=== PATIENT | female | born 1945 | race Caucasian/White ===

== ENCOUNTER 2018-07-18 09:15 | Inpatient (IN) | payer MEDICARE, BC ==
[~2018-07-18 09:15] MED LIST: Acetaminophen 325 MG Tab PO SCH; EPINEPHrine 1 MG/ML SDV ONE; Lactated Ringers 1,000 ML IV SCH; Lidocaine 1%/Sod Bicarbonate in NS 8.4% 1 ML Syringe IDERM PRN; Pregabalin 25 MG Cap PO SCH; Ropivacaine 0.5% 5 MG/ML 30 ML SDV ONE; Sodium Chloride 0.9% 10 ML Syringe FLUSH PRN; oxyCODONE ER 10 MG TAB.ER PO SCH
[2018-07-18] MEDS ORDERED: fentaNYL 100 MCG/2 ML SDV ONE (09:36)
[2018-07-18] MEDS ORDERED: Propofol 200 MG/20 ML SDV ONE ×5 (09:36→13:16)
[2018-07-18] MEDS ORDERED: Bupivacaine 0.75% 30 ML SDV ONE (09:37)
[2018-07-18] MEDS ORDERED: Lidocaine 1% 4 ML ONE (09:37)
[2018-07-18] MEDS ORDERED: ceFAZolin 1 GM Vial ONE (09:52)
--- NOTE | 2018-07-18 10:16 | PCM.PREANE ---
Preanesthetic Assessment - Anesthesia/Transfusion/Family Hx Anesthesia History: Prior Anesthesia Without Reaction Family History of Anesthesia Reaction: No Transfusion History: No Prior Transfusion(s) - Review of Systems General: No Symptoms Pulmonary: No Symptoms Cardiovascular: No Symptoms Gastrointestinal: No Symptoms Neurological: No Symptoms Other: Reports: None - Physical Assessment NPO Status Date: 07/17/18 NPO Status Time: 00:00 Pulse: 63 O2 Sat by Pulse Oximetry: 98 Respiratory Rate: 16 Blood Pressure: 171/73 Temperature: 37.1 C Height: 1.7 m Weight: 59.466 kg ASA Class: 2 Mental Status: Alert & Oriented x3 Dentition: Reports: Normal Dentition Thyro-Mental Finger Breadths: 3 Mouth Opening Finger Breadths: 3 ROM/Head Extension: Full Lungs: Clear to Auscultation, Normal Respiratory Effort Cardiovascular: Regular Rate, Regular Rhythm, No Murmurs - Lab Values: on chart - Imaging/EKG Impressions: EKG SR @ 66 - Allergies Allergies/Adverse Reactions: Allergies Allergy/AdvReac Type Severity Reaction Status Date / Time No Known Allergies Allergy Verified 05/09/17 08:05 - Anesthesia Plan Pre-Op Medication Ordered: Beta Sandie Beta Sandie: Metoprolol Med Last Dose Date: 07/18/18 Med Last Dose Time: 07:00 - Acknowledgements Anesthesia Type Planned: Spinal Pt an Appropriate Candidate for the Planned Anesthesia: Yes Alternatives and Risks of Anesthesia Discussed w Pt/Guardian: Yes Pt/Guardian Understands and Agrees with Anesthesia Plan: Yes PreAnesthesia Questionnaire Genitourinary History: Reports: Other (See Below) (chronic renal disease) - HOME MEDS Home Medications: Home Meds Acetaminophen/HYDROcodone [[place] 325-5 MG] 1 - 2 tab PO Q6H PRN #15 tablet 06/06 [Rx] Aspirin [Adult Low Dose Aspirin EC] 81 mg PO DAILY 06/06/18 [History] DULoxetine HCl [Cymbalta] 60 mg PO BID 06/06/18 [History] Lisinopril 40 mg PO DAILY 06/06/18 [History] Metoprolol Succinate 50 mg PO DAILY 06/06/18 [History] Simvastatin 20 mg PO DAILY 06/06/18 [History] amLODIPine Besylate [Amlodipine Besylate] 10 mg PO DAILY 06/06/18 [History] - CURRENT (IN HOUSE) MEDS Current Meds: Current Medications Acetaminophen (Tylenol) 975 mg PO ONETIME [facility] Stop: 07/18/18 12:00 Aspirin (Ecotrin) 325 mg PO BID [facility] Bisacodyl (Dulcolax) 5 mg PO DAILY PRN PRN Reason: Constipation Cyclobenzaprine HCl (Flexeril) 10 mg PO TID PRN PRN Reason: Spasms Docusate Sodium (Colace) 100 mg PO BID [facility] Famotidine (Pepcid) 20 mg PO Q12H [facility] Lactated Ringer's (Ringers, Lactated) 1,000 mls @ 125 mls/hr IV ASDIRECTED [facility] Stop: 07/18/18 23:00 Cefazolin Sodium/Dextrose 2 gm (/ Premix) 50 mls @ 100 mls/hr IV Q8H [facility] Stop: 07/18/18 23:29 Lidocaine/Sodium Bicarbonate (Buffered Lidocaine 1% In Ns 8.4%) 0.25 ml IDERM ONETIME PRN PRN Reason: Prior to IV Start Stop: 07/18/18 18:00 Magnesium Hydroxide (Milk Of Magnesia) 30 ml PO BID PRN PRN Reason: Constipation Morphine Sulfate (Morphine) 2 mg IVPUSH Q2H PRN PRN Reason: Breakthrough Pain Naloxone HCl (Narcan) 0.1 mg IVPUSH Q5M PRN PRN Reason: Oversedation Ondansetron HCl (Zofran) 4 mg IVPUSH Q6H PRN PRN Reason: Nausea/Vomiting Oxycodone HCl (Oxycontin) 10 mg PO ASDIRECTED [facility] Stop: 07/18/18 12:00 Oxycodone/Acetaminophen (Percocet 325-5 Mg) 1 - 2 tab PO Q4H PRN PRN Reason: Pain Pregabalin (Lyrica) 50 mg PO ONETIME [facility] Stop: 07/18/18 18:00 Senna (Senna) 8.6 mg PO BID PRN PRN Reason: Constipation Sodium Chloride (Saline Flush) 10 ml FLUSH ASDIRECTED PRN PRN Reason: Keep Vein Open Stop: 07/18/18 18:00 Discontinued Medications Bupivacaine HCl (Sensorcaine-Mpf 0.75%) Confirm Administered Dose 30 ml .ROUTE .STK-MED ONE Stop: 07/18/18 09:38 Bupivacaine HCl (Marcaine 0.25%) Confirm Administered Dose 30 ml .ROUTE .STK- MED ONE Stop: 07/18/18 09:53 Cefazolin Sodium (Ancef) Confirm Administered Dose 2 gm .ROUTE .STK-MED ONE Stop: 07/18/18 09:48 Cefazolin Sodium (Ancef) Confirm Administered Dose 2 gm .ROUTE .STK-MED ONE Stop: 07/18/18 09:53 Morphine Sulfate 8 mg/Epinephrine HCl 0.3 mg/Cefuroxime Sodium 750 mg/Ketorolac Tromethamine 30 mg/Sodium Chloride 27.9 ml 0 mg .XX ONETIME ONE Stop: 07/18/18 09:31 Epinephrine HCl (Adrenalin) Confirm Administered Dose 1 mg .ROUTE .STK-MED ONE Stop: 07/18/18 08:48 Fentanyl (Sublimaze) Confirm Administered Dose 100 mcg .ROUTE .ST-MED ONE Stop: 07/18/18 09:37 Lidocaine HCl (Xylocaine-Mpf 1%) Confirm Administered Dose 4 mls @ as directed .ROUTE .ST-MED ONE Stop: 07/18/18 09:38 Lidocaine HCl (Xylocaine-Mpf 1%) Confirm Administered Dose 5 mls @ as directed .ROUTE .ST-MED ONE Stop: 07/18/18 09:38 Iodine (Iodine 2% Mild Tincture) Confirm Administered Dose 30 ml .ROUTE .ST- MED ONE Stop: 07/18/18 09:53 Propofol (Diprivan 20 Ml) Confirm Administered Dose 200 mg .ROUTE .STK-MED ONE Stop: 07/18/18 09:37 Ropivacaine (Naropin 0.5%) Confirm Administered Dose 30 ml .ROUTE .ST-MED ONE Stop: 07/18/18 08:48 Tranexamic Acid (Cyklokapron) Confirm Administered Dose 1,000 mg .ROUTE .STK- MED ONE Stop: 07/18/18 09:53 Vancomycin HCl (Vancomycin) Confirm Administered Dose 1 gm .ROUTE .STK-MED ONE Stop: 07/18/18 09:53
[2018-07-18] MEDS: Iodine/Sodium Iodide 2% Tincture 30 ML Bottle ONE ×2 (11:51→13:05)
[2018-07-18] MEDS: ceFAZolin 1 GM Vial ONE ×2 (11:51→13:08)
[2018-07-18] MEDS: Bupivacaine 0.25% 30 ML SDV ONE ×2 (11:52→13:12)
[2018-07-18] MEDS: Morphine 8 MG, EPINEPHrine 0.3 MG, Cefuroxime 750 MG, Ketorolac 30 MG, Sodium Chloride ... ONE ×10 (11:52→13:12)
[2018-07-18] MEDS: Vancomycin 1 GM SDV ONE ×2 (11:52→13:17)
[2018-07-18] MEDS ORDERED: Ondansetron 4 MG/2 ML SDV IVPUSH PRN (13:00)
[2018-07-18] MEDS ORDERED: Naloxone 0.4 MG/ML SDV IVPUSH PRN (13:00)
[2018-07-18] MEDS ORDERED: Cyclobenzaprine 10 MG Tab PO PRN (13:00)
[2018-07-18] MEDS ORDERED: Bisacodyl 5 MG Tab PO PRN (13:00)
[2018-07-18] MEDS ORDERED: Morphine 2 MG/ML Syringe IVPUSH PRN (13:00)
[2018-07-18] MEDS ORDERED: Sennosides 8.6 MG Tab PO PRN (13:00)
[2018-07-18] MEDS ORDERED: Magnesium Hydroxide 400 MG/5 ML Susp 30 ML Cup PO PRN (13:00)
[2018-07-18] MEDS ORDERED: fentaNYL 100 MCG/2 ML SDV IVPUSH PRN (13:52)
--- NOTE | 2018-07-18 13:55 | PCM.POSTAN ---
POST ANESTHESIA ASSESSMENT - MENTAL STATUS Mental Status: Alert, Oriented - VITAL SIGNS Pulse Rate: 89 SaO2: 96 Resp Rate: 15 Blood Pressure: 130/65 Temperature: 37.4 C - RESPIRATORY Respiratory Status: Respiratory Rate WNL, Airway Patent, O2 Saturation Stable, Supplemental Oxygen - CARDIOVASCULAR CV Status: Pulse Rate WNL, Blood Pressure Stable - GASTROINTESTINAL GI Status: No Symptoms - PAIN Pain Score: 0 - POST OP HYDRATION Hydration Status: Adequate & Stable - OBSERVATIONS Free Text/Narrative:: no anesthesia complications noted
--- NOTE | 2018-07-18 14:14 | PCM.SN ---
- Free Text/Narrative Note: Left selective femoral nerve block at the adductor canal for post-procedure pain control Time Out: 1358 Start: 1403 End: 1407 Chart reviewed. Consent signed. Questions answered. Appropriate monitors applied. Time out performed. Left mid-shaft femur evaluated with ultrasound. Scanning medially femur, I was able to identify the femoral artery in the adductor canal. The saphenous nerve was lateral to the artery. The skin was prepped lateral to the ultrasound probe with chlorahexadine. The 21ga 4 insulated block needle was inserted under direct ultrasound guidance into the adductor canal. 20mL of 0.5% ropivacaine with 1:200,000 epinephrine was injected cirmcumferentially about the nerve with intermittent negative aspiration every 5mL. Patient tolerated the procedure well. See pictures on progress note and vital signs on nurses notes. Block completed postoperatively. Bonifacio Handy CRNA
--- NOTE | 2018-07-18 14:20 | PCM.CONS ---
H&P History of Present Illness - General Date of Service: 07/18/18 Admit Problem/Dx: Admission Diagnosis/Problem Admission Diagnosis/Problem Osteoarthritis of knee Source of Information: Patient, Provider History Limitations: Reports: No Limitations - History of Present Illness Initial Comments - Free Text/Narative: Laura is a 72 yo female patient of Dr. Rangel who is post-operative day 0 of left TKA. Hospital medicine was consulted for post-operative medical care. At this time she is resting comfortably in bed. Pain is controlled. She denies any chest pain, shortness of breath, palpitations, nausea, or vomiting. She carries a history of: LIZANDRO, CKD III, Depression, Anxiety, Fibromyalgia, GERD, HTN, HLD, h /o ETOH abuse, h/o Bipolar. She is not a smoker. She is a full code. Her primary care provider is Lara Velasco NP. - Related Data Allergies/Adverse Reactions: Allergies Allergy/AdvReac Type Severity Reaction Status Date / Time No Known Allergies Allergy Verified 07/18/18 11:54 Home Medications: Home Meds Acetaminophen/HYDROcodone [[place] 325-5 MG] 1 - 2 tab PO Q6H PRN #15 tablet 06/06 [Rx] Aspirin [Adult Low Dose Aspirin EC] 81 mg PO DAILY 06/06/18 [History] DULoxetine HCl [Cymbalta] 60 mg PO BID 06/06/18 [History] Lisinopril 40 mg PO DAILY 06/06/18 [History] Metoprolol Succinate 50 mg PO DAILY 06/06/18 [History] Simvastatin 20 mg PO QPM 06/06/18 [History] amLODIPine Besylate [Amlodipine Besylate] 10 mg PO DAILY 06/06/18 [History] FA/Lycopene/Lut/MV,Ca,Iron,Min [Centrum] 1 tab PO DAILY 07/18/18 [History] Prazosin HCl [Prazosin] 2 mg PO BID 07/18/18 [History] Vortioxetine Hydrobromide [Trintellix] 20 mg PO DAILY 07/18/18 [History] Past Medical History HEENT History: Reports: Allergic Rhinitis, Cataract Cardiovascular History: Reports: High Cholesterol, Hypertension Respiratory History: Reports: Other (See Below) Other Respiratory History: seasonal allergies Genitourinary History: Reports: Other (See Below) (chronic renal disease) Other Genitourinary History: chronic kidney disease stage 3. Other OB/BYN History: breast lulmpeactomy and reduction Musculoskeletal History: Reports: Arthritis, Fibromyalgia Other Musculoskeletal History: hammertoe correction, partial left knee, left shoulder.bilat carpal tunnel Psychiatric History: Reports: Anxiety, Depression, Other (See Below) Other Psychiatric History: daytime somnolence, alcohol abuse, bipolar. Other Hematologic History: hypokalemia - Past Surgical History GI Surgical History: Reports: Appendectomy, Cholecystectomy Female Surgical History: Reports: Hysterectomy, Tubal Ligation, Other (See Below) Musculoskeletal Surgical History: Reports: Carpal Tunnel Social & Family History - Tobacco Use Smoking Status *Q: Never Smoker - Caffeine Use Caffeine Use: Reports: Coffee - Recreational Drug Use Recreational Drug Use: No Drug Use in Last 12 Months: No H&P Review of Systems - Review of Systems: Review Of Systems: See Below General: Reports: No Symptoms. Denies: Fever, Chills HEENT: Reports: No Symptoms Pulmonary: Reports: No Symptoms. Denies: Shortness of Breath, Cough Cardiovascular: Reports: Blood Pressure Problem. Denies: Chest Pain Gastrointestinal: Reports: No Symptoms. Denies: Abdominal Pain, Diarrhea, Nausea, Vomiting Genitourinary: Reports: No Symptoms Musculoskeletal: Reports: No Symptoms Skin: Reports: No Symptoms Psychiatric: Reports: No Symptoms Neurological: Reports: No Symptoms Hematologic/Lymphatic: Reports: No Symptoms Immunologic: Reports: No Symptoms Exam - Exam Exam: See Below - Vital Signs Vital Signs: Last Vital Signs Temp 99.3 F 07/18/18 13:55 Pulse 89 07/18/18 13:55 Resp 14 07/18/18 14:15 BP 140/64 07/18/18 14:15 Pulse Ox 100 07/18/18 14:15 Weight: 131 lb 1.6 oz - Exam Quality Assessment: Supplemental Oxygen (2L NC) General: Alert, Oriented, Cooperative, Mild Distress HEENT: PERRLA, Hearing Intact, Mucosa Moist & [place], Nares Patent, Normal Nasal Septum, Posterior Pharynx Clear, Conjunctiva Clear, EOMI, EACs Clear, TMs Clear Neck: Supple, Trachea Midline, 2 Lungs: Clear to Auscultation, Normal Respiratory Effort Cardiovascular: Regular Rate, Regular Rhythm GI/Abdominal Exam: Normal Bowel Sounds, Soft, Non-Tender, No Organomegaly, No Distention, No Abnormal Bruit, No Mass, Pelvis Stable (Female) Exam: Deferred Rectal (Female) Exam: Deferred Back Exam: Normal Inspection, Full Range of Motion, NT Extremities: Normal Inspection, Non-Tender, No Pedal Edema, Normal Capillary Refill, Limited Range of Motion (s/p L TKA) Peripheral Pulses: 2+: Posterior Tibial (L), Posterior Tibial (R), Dorsalis Pedis (L), Dorsalis Pedis (R) Skin: Warm, Dry, Intact Neurological: Cranial Nerves Intact (grossly) Neuro Extensive - Mental Status: Alert, Oriented x3, Normal Mood/Affect, Normal Cognition Psychiatric: Alert, Normal Affect, Normal Mood Consult PN Assessment/Plan POD#: 0 Procedures: Procedures ANTINUCLEAR ANTIBODIES (09/21/16) ASSAY GLUCOSE BLOOD QUANT (07/04/18) ASSAY NEPHELOMETRY NOT SPEC (09/21/16) ASSAY OF ALDOSTERONE (05/01/17) ASSAY OF BLOOD/URIC ACID (06/24/18) ASSAY OF CREATININE (05/09/17) ASSAY OF PARATHORMONE (06/24/18) ASSAY OF PREALBUMIN (07/04/18) ASSAY OF PROTEIN URINE (06/24/18) ASSAY OF RENIN (05/01/17) ASSAY OF URINE CREATININE (06/24/18) ASSAY THYROID STIM HORMONE (08/09/17) CARPAL TUNNEL SURGERY (06/06/18) COMPLEMENT ANTIGEN (05/01/17) COMPLETE CBC AUTOMATED (06/04/18) COMPLETE CBC W/AUTO DIFF WBC (06/24/18) COMPREHEN METABOLIC PANEL (08/09/17) DXA BONE DENSITY AXIAL (07/09/18) ELECTROCARDIOGRAM TRACING (06/04/18) FLUORESCENT ANTIBODY TITER (09/21/16) IMMUNOASSAY NONANTIBODY (09/21/16) IMMUNOFIX E-PHORESIS SERUM (09/21/16) INCISE FINGER TENDON SHEATH (06/06/18) LIPID PANEL (08/09/17) METABOLIC PANEL TOTAL CA (06/04/18) MR-STAPH DNA AMP PROBE (07/02/18) MRI ABDOMEN W/O DYE (05/09/17) OFFICE/OUTPATIENT VISIT EST (07/04/18) OFFICE/OUTPATIENT VISIT EST (06/04/18) POLYSOM 6/> YRS 4/> BRANDAN (05/26/18) POLYSOM 6/>YRS CPAP 4/> PARM (06/10/18) PROTEIN E-PHORESIS SERUM (09/21/16) PROTEIN E-PHORESIS/URINE/CSF (09/21/16) PROTHROMBIN TIME (07/04/18) RENAL FUNCTION PANEL (06/24/18) ROUTINE VENIPUNCTURE (07/04/18) THROMBOPLASTIN TIME PARTIAL (07/04/18) UR ALBUMIN QUANTITATIVE (08/21/16) URINALYSIS AUTO W/SCOPE (07/04/18) URINE CULTURE/COLONY COUNT (07/04/18) US EXAM ABDO BACK WALL COMP (07/10/18) VITAMIN D 25 HYDROXY (06/24/18) X-RAY EXAM CHEST 2 VIEWS (07/04/18) (1) S/P total knee arthroplasty SNOMED Code(s): 5795804497745, 403827398, 4507429547226 Code(s): Z96.659 - PRESENCE OF UNSPECIFIED ARTIFICIAL KNEE JOINT Priority: High Current Visit: Yes Qualifiers: Laterality: left Qualified Code(s): Z96.652 - Presence of left artificial knee joint (2) Osteoarthritis SNOMED Code(s): 413364697 Code(s): M19.90 - UNSPECIFIED OSTEOARTHRITIS, UNSPECIFIED SITE Priority: High Current Visit: Yes Qualifiers: Osteoarthritis location: unspecified site Osteoarthritis type: unspecified Qualified Code(s): M19.90 - Unspecified osteoarthritis, unspecified site (3) CKD (chronic kidney disease) stage 3, GFR 30-59 ml/min SNOMED Code(s): 710229293 Code(s): N18.3 - CHRONIC KIDNEY DISEASE, STAGE 3 (MODERATE) Priority: Medium Current Visit: Yes (4) Fibromyalgia SNOMED Code(s): 452297050 Code(s): M79.7 - FIBROMYALGIA Priority: Low Current Visit: Yes (5) GERD (gastroesophageal reflux disease) SNOMED Code(s): 888102813 Code(s): K21.9 - GASTRO-ESOPHAGEAL REFLUX DISEASE WITHOUT ESOPHAGITIS Priority: Medium Current Visit: Yes Qualifiers: Esophagitis presence: esophagitis presence not specified Qualified Code(s) : K21.9 - Gastro-esophageal reflux disease without esophagitis (6) HTN (hypertension) SNOMED Code(s): 62026990 Code(s): I10 - ESSENTIAL (PRIMARY) HYPERTENSION Priority: Medium Current Visit: Yes Qualifiers: Hypertension type: unspecified Qualified Code(s): I10 - Essential (primary ) hypertension (7) HLD (hyperlipidemia) SNOMED Code(s): 01091872 Code(s): E78.5 - HYPERLIPIDEMIA, UNSPECIFIED Priority: Low Current Visit : Yes Qualifiers: Hyperlipidemia type: unspecified Qualified Code(s): E78.5 - Hyperlipidemia , unspecified (8) H/O ETOH abuse SNOMED Code(s): 327778479 Code(s): Z87.898 - PERSONAL HISTORY OF OTHER SPECIFIED CONDITIONS Priority : Low Current Visit: No (9) H/O bipolar disorder SNOMED Code(s): 615457325 Code(s): Z86.59 - PERSONAL HISTORY OF OTHER MENTAL AND BEHAVIORAL DISORDERS Priority: Low Current Visit: Yes Problem List Initiated/Reviewed/Updated: Yes Plan: I/P: Acute: S/P Left total knee arthroplasty - post-operative day 0 -DVT prophylaxis and pain management per primary care team -PT/OT -IS/RT -Monitor oxygen saturation -Titrate oxygen as needed -Vital signs stable -Monitor labs -Pre-operative Hgb was 11.7 -Pre-operative GFR was 55 Osteoarthritis of left knee -Pain management per primary care team Chronic: LIZANDRO CKD III Depression Anxiety Fibromyalgia GERD HTN HLD h/o ETOH abuse h/o Bipolar Plan: CM for discharge planning GI prophylaxis Home medications as indicated Other orders as listed above Routine AM labs She is a full code. Her PCP is Lara Velasco NP. Thank you for allowing us to participate in the care of this patient!!
--- NOTE | 2018-07-18 14:28 | CR ---
Left knee: AP and lateral views of the left knee were obtained. Comparison: No prior left knee exam. Knee prosthesis is seen. This has been recently placed. Soft tissue air is noted from the surgical procedure. Underlying bony structures are intact. Lucency is seen within the distal femur believed to represent overlying air causing this artifact. Impression: 1. Satisfactory postoperative radiographic appearance of recently placed left knee prosthesis. Diagnostic code #2
[2018-07-18] MEDS: ceFAZolin 2 GM in Premix Bag 1 BAG IV SCH (17:22)
[2018-07-18] MEDS: Famotidine 20 MG Tab PO SCH (20:12)
[2018-07-18] MEDS: Docusate Sodium 100 MG Cap PO SCH (20:12)
[2018-07-18] MEDS: DULoxetine 30 MG Cap PO SCH (20:12)
[2018-07-18] MEDS: Prazosin 1 MG Cap PO SCH (20:13)
[2018-07-19] MEDS: ceFAZolin 2 GM in Premix Bag 1 BAG IV SCH ×2 (01:20→10:08)
[2018-07-19] MEDS: Acetaminophen/oxyCODONE 325-5 MG Tab PO PRN ×2 (01:22→06:44)
--- NOTE | 2018-07-19 06:38 | PCM.CONSN ---
- General Info Date of Service: 07/19/18 Admission Dx/Problem (Free Text): Admission Diagnosis/Problem Admission Diagnosis/Problem Osteoarthritis of knee Functional Status: Reports: Pain Controlled, Tolerating Diet, Ambulating, Urinating, Incentive Spirometry. Denies: New Symptoms - Review of Systems General: Reports: No Symptoms. Denies: Fever, Weakness, Fatigue, Malaise, Chills HEENT: Reports: No Symptoms. Denies: Sore Throat Pulmonary: Reports: No Symptoms. Denies: Shortness of Breath, Cough, Sputum, Wheezing Cardiovascular: Reports: No Symptoms. Denies: Chest Pain, Palpitations, Dyspnea on Exertion, Edema Gastrointestinal: Reports: No Symptoms. Denies: Abdominal Pain, Constipation, Diarrhea, Nausea, Vomiting Genitourinary: Reports: No Symptoms. Denies: Burning, Pain, Urgency Musculoskeletal: Reports: Leg Pain Skin: Reports: No Symptoms Neurological: Reports: No Symptoms. Denies: Confusion Psychiatric: Reports: No Symptoms - Patient Data Vitals - Most Recent: Last Vital Signs Temp 98.1 F 07/19/18 04:36 Pulse 87 07/19/18 04:36 Resp 16 07/19/18 04:36 BP 139/53 L 07/19/18 04:36 Pulse Ox 93 L 07/19/18 04:36 Weight - Most Recent: 139 lb 14.4 oz I&O - Last 24 Hours: Intake & Output 07/18/18 07/18/18 07/19/18 14:59 22:59 06:59 Intake Total 340 600 850 Output Total 750 200 950 Balance -410 400 -100 Med Orders - Current: Current Medications Amlodipine Besylate (Norvasc) 10 mg PO DAILY [facility] Aspirin (Ecotrin) 325 mg PO BID [facility] Bisacodyl (Dulcolax) 5 mg PO DAILY PRN PRN Reason: Constipation Cyclobenzaprine HCl (Flexeril) 10 mg PO TID PRN PRN Reason: Spasms Docusate Sodium (Colace) 100 mg PO BID [facility] Last Admin: 07/18/18 20:12 Dose: 100 mg Duloxetine HCl (Cymbalta) 60 mg PO BID [facility] Last Admin: 07/18/18 20:12 Dose: 60 mg Famotidine (Pepcid) 20 mg PO Q12H [facility] Last Admin: 07/18/18 20:12 Dose: 20 mg Cefazolin Sodium/Dextrose 2 gm (/ Premix) 50 mls @ 100 mls/hr IV Q8H [facility] Stop: 07/19/18 10:29 Last Admin: 07/19/18 01:20 Dose: 100 mls/hr Lisinopril (Prinivil) 40 mg PO DAILY [facility] Magnesium Hydroxide (Milk Of Magnesia) 30 ml PO BID PRN PRN Reason: Constipation Metoprolol Succinate (Toprol Xl) 50 mg PO DAILY [facility] Morphine Sulfate (Morphine) 2 mg IVPUSH Q2H PRN PRN Reason: Breakthrough Pain Multivitamins (Thera) 1 each PO DAILY [facility] Naloxone HCl (Narcan) 0.1 mg IVPUSH Q5M PRN PRN Reason: Oversedation Ondansetron HCl (Zofran) 4 mg IVPUSH Q6H PRN PRN Reason: Nausea/Vomiting Oxycodone/Acetaminophen (Percocet 325-5 Mg) 1 - 2 tab PO Q4H PRN PRN Reason: Pain Last Admin: 07/19/18 01:22 Dose: 2 tab Vortioxetine Hydrobromide [ Trintellix] 20 Mg 0 each PO DAILY [facility] Prazosin HCl (Minpress) 2 mg PO BID [facility] Last Admin: 07/18/18 20:13 Dose: 2 mg Senna (Senna) 8.6 mg PO BID PRN PRN Reason: Constipation Simvastatin (Zocor) 20 mg PO DAILY [facility] Discontinued Medications Acetaminophen (Tylenol) 975 mg PO ONETIME [facility] Stop: 07/18/18 12:00 Last Admin: 07/18/18 10:24 Dose: 975 mg Bupivacaine HCl (Sensorcaine-Mpf 0.75%) Confirm Administered Dose 30 ml .ROUTE .STK-MED ONE Stop: 07/18/18 09:38 Bupivacaine HCl (Marcaine 0.25%) Confirm Administered Dose 30 ml .ROUTE .STK- MED ONE Stop: 07/18/18 09:53 Last Admin: 07/18/18 13:12 Dose: 30 ml Cefazolin Sodium (Ancef) Confirm Administered Dose 2 gm .ROUTE .STK-MED ONE Stop: 07/18/18 09:48 Last Admin: 07/18/18 13:08 Dose: 2 gm Cefazolin Sodium (Ancef) Confirm Administered Dose 2 gm .ROUTE .STK-MED ONE Stop: 07/18/18 09:53 Morphine Sulfate 8 mg/Epinephrine HCl 0.3 mg/Cefuroxime Sodium 750 mg/Ketorolac Tromethamine 30 mg/Sodium Chloride 27.9 ml 0 mg .XX ONETIME ONE Stop: 07/18/18 09:31 Last Admin: 07/18/18 13:12 Dose: 788.3 mg Epinephrine HCl (Adrenalin) Confirm Administered Dose 1 mg .ROUTE .STK-MED ONE Stop: 07/18/18 08:48 Fentanyl (Sublimaze) Confirm Administered Dose 100 mcg .ROUTE .STK-MED ONE Stop: 07/18/18 09:37 Fentanyl (Sublimaze) 50 mcg IVPUSH Q5M PRN PRN Reason: Pain Stop: 07/18/18 16:00 Lactated Ringer's (Ringers, Lactated) 1,000 mls @ 125 mls/hr IV ASDIRECTED [facility] Stop: 07/18/18 23:00 Last Admin: 07/18/18 09:45 Dose: 125 mls/hr Lidocaine HCl (Xylocaine-Mpf 1%) Confirm Administered Dose 4 mls @ as directed .ROUTE .ST-MED ONE Stop: 07/18/18 09:38 Lidocaine HCl (Xylocaine-Mpf 1%) Confirm Administered Dose 5 mls @ as directed .ROUTE .STK-MED ONE Stop: 07/18/18 09:38 Iodine (Iodine 2% Mild Tincture) Confirm Administered Dose 30 ml .ROUTE .STK- MED ONE Stop: 07/18/18 09:53 Last Admin: 07/18/18 13:05 Dose: 30 ml Lidocaine/Sodium Bicarbonate (Buffered Lidocaine 1% In Ns 8.4%) 0.25 ml IDERM ONETIME PRN PRN Reason: Prior to IV Start Stop: 07/18/18 18:00 Oxycodone HCl (Oxycontin) 10 mg PO ASDIRECTED [facility] Stop: 07/18/18 12:00 Last Admin: 07/18/18 10:24 Dose: 10 mg Pregabalin (Lyrica) 50 mg PO ONETIME [facility] Stop: 07/18/18 18:00 Last Admin: 07/18/18 10:24 Dose: 50 mg Propofol (Diprivan 20 Ml) Confirm Administered Dose 200 mg .ROUTE .STK-MED ONE Stop: 07/18/18 09:37 Propofol (Diprivan 20 Ml) Confirm Administered Dose 200 mg .ROUTE .STK-MED ONE Stop: 07/18/18 11:22 Propofol (Diprivan 20 Ml) Confirm Administered Dose 200 mg .ROUTE .STK-MED ONE Stop: 07/18/18 12:04 Propofol (Diprivan 20 Ml) Confirm Administered Dose 200 mg .ROUTE .STK-MED ONE Stop: 07/18/18 12:40 Propofol (Diprivan 20 Ml) Confirm Administered Dose 200 mg .ROUTE .STK-MED ONE Stop: 07/18/18 13:17 Ropivacaine (Naropin 0.5%) Confirm Administered Dose 30 ml .ROUTE .STK-MED ONE Stop: 07/18/18 08:48 Sodium Chloride (Saline Flush) 10 ml FLUSH ASDIRECTED PRN PRN Reason: Keep Vein Open Stop: 07/18/18 18:00 Tranexamic Acid (Cyklokapron) Confirm Administered Dose 1,000 mg .ROUTE .STK- MED ONE Stop: 07/18/18 09:53 Last Admin: 07/18/18 13:21 Dose: 1,000 mg Vancomycin HCl (Vancomycin) Confirm Administered Dose 1 gm .ROUTE .STK-MED ONE Stop: 07/18/18 09:53 Last Admin: 07/18/18 13:17 Dose: 1 gm - Exam Quality Assessment: DVT Prophylaxis General: Alert, Oriented, Cooperative, No Acute Distress HEENT: Pupils Equal, Pupils Reactive, EOMI, Mucous Membr. Moist/[place] Neck: Supple, Trachea Midline, No JVD Lungs: Clear to Auscultation, Normal Respiratory Effort Cardiovascular: Regular Rate, Regular Rhythm GI/Abdominal Exam: Normal Bowel Sounds, Soft, Non-Tender, No Distention, No Mass (Female) Exam: Deferred Back Exam: Normal Inspection, Full Range of Motion Extremities: Non-Tender, No Pedal Edema, Normal Capillary Refill, Leg Pain, Limited Range of Motion, Other (Bandage in place on left leg. Cooling pack in place. ) Peripheral Pulses: 2+: Radial (L), Radial (R), Dorsalis Pedis (L), Dorsalis Pedis (R) Skin: Warm, Dry, Intact Wound/Incisions: Dressing Dry and Intact, No Drainage Neurological: No New Focal Deficit Psy/Mental Status: Alert, Normal Affect, Normal Mood Consult PN Assessment/Plan POD#: 1 Procedures: Procedures ANTINUCLEAR ANTIBODIES (09/21/16) ASSAY GLUCOSE BLOOD QUANT (07/04/18) ASSAY NEPHELOMETRY NOT SPEC (09/21/16) ASSAY OF ALDOSTERONE (05/01/17) ASSAY OF BLOOD/URIC ACID (06/24/18) ASSAY OF CREATININE (05/09/17) ASSAY OF PARATHORMONE (06/24/18) ASSAY OF PREALBUMIN (07/04/18) ASSAY OF PROTEIN URINE (06/24/18) ASSAY OF RENIN (05/01/17) ASSAY OF URINE CREATININE (06/24/18) ASSAY THYROID STIM HORMONE (08/09/17) CARPAL TUNNEL SURGERY (06/06/18) COMPLEMENT ANTIGEN (05/01/17) COMPLETE CBC AUTOMATED (06/04/18) COMPLETE CBC W/AUTO DIFF WBC (06/24/18) COMPREHEN METABOLIC PANEL (08/09/17) DXA BONE DENSITY AXIAL (07/09/18) ELECTROCARDIOGRAM TRACING (06/04/18) FLUORESCENT ANTIBODY TITER (09/21/16) IMMUNOASSAY NONANTIBODY (09/21/16) IMMUNOFIX E-PHORESIS SERUM (09/21/16) INCISE FINGER TENDON SHEATH (06/06/18) LIPID PANEL (08/09/17) METABOLIC PANEL TOTAL CA (06/04/18) MR-STAPH DNA AMP PROBE (07/02/18) MRI ABDOMEN W/O DYE (05/09/17) OFFICE/OUTPATIENT VISIT EST (07/04/18) OFFICE/OUTPATIENT VISIT EST (06/04/18) POLYSOM 6/> YRS 4/> BRANDAN (05/26/18) POLYSOM 6/>YRS CPAP 4/> PARM (06/10/18) PROTEIN E-PHORESIS SERUM (09/21/16) PROTEIN E-PHORESIS/URINE/CSF (09/21/16) PROTHROMBIN TIME (07/04/18) RENAL FUNCTION PANEL (06/24/18) ROUTINE VENIPUNCTURE (07/04/18) THROMBOPLASTIN TIME PARTIAL (07/04/18) UR ALBUMIN QUANTITATIVE (08/21/16) URINALYSIS AUTO W/SCOPE (07/04/18) URINE CULTURE/COLONY COUNT (07/04/18) US EXAM ABDO BACK WALL COMP (07/10/18) VITAMIN D 25 HYDROXY (06/24/18) X-RAY EXAM CHEST 2 VIEWS (07/04/18) (1) S/P total knee arthroplasty SNOMED Code(s): 0468258935399, 777886280, 0286970023523 Code(s): Z96.659 - PRESENCE OF UNSPECIFIED ARTIFICIAL KNEE JOINT Priority: High Current Visit: Yes Qualifiers: Laterality: left Qualified Code(s): Z96.652 - Presence of left artificial knee joint (2) CKD (chronic kidney disease) stage 3, GFR 30-59 ml/min SNOMED Code(s): 355319509 Code(s): N18.3 - CHRONIC KIDNEY DISEASE, STAGE 3 (MODERATE) Priority: Medium Current Visit: Yes (3) Fibromyalgia SNOMED Code(s): 811234234 Code(s): M79.7 - FIBROMYALGIA Priority: Low Current Visit: Yes (4) GERD (gastroesophageal reflux disease) SNOMED Code(s): 325382158 Code(s): K21.9 - GASTRO-ESOPHAGEAL REFLUX DISEASE WITHOUT ESOPHAGITIS Priority: Medium Current Visit: Yes Qualifiers: Esophagitis presence: esophagitis presence not specified Qualified Code(s) : K21.9 - Gastro-esophageal reflux disease without esophagitis (5) H/O bipolar disorder SNOMED Code(s): 842593350 Code(s): Z86.59 - PERSONAL HISTORY OF OTHER MENTAL AND BEHAVIORAL DISORDERS Priority: Low Current Visit: Yes (6) HLD (hyperlipidemia) SNOMED Code(s): 97505800 Code(s): E78.5 - HYPERLIPIDEMIA, UNSPECIFIED Priority: Low Current Visit : Yes Qualifiers: Hyperlipidemia type: unspecified Qualified Code(s): E78.5 - Hyperlipidemia , unspecified (7) HTN (hypertension) SNOMED Code(s): 26269848 Code(s): I10 - ESSENTIAL (PRIMARY) HYPERTENSION Priority: Medium Current Visit: Yes Qualifiers: Hypertension type: unspecified Qualified Code(s): I10 - Essential (primary ) hypertension (8) Osteoarthritis SNOMED Code(s): 009718213 Code(s): M19.90 - UNSPECIFIED OSTEOARTHRITIS, UNSPECIFIED SITE Priority: High Current Visit: Yes Qualifiers: Osteoarthritis location: unspecified site Osteoarthritis type: unspecified Qualified Code(s): M19.90 - Unspecified osteoarthritis, unspecified site (9) H/O ETOH abuse SNOMED Code(s): 908349610 Code(s): Z87.898 - PERSONAL HISTORY OF OTHER SPECIFIED CONDITIONS Priority : Low Current Visit: No Problem List Initiated/Reviewed/Updated: Yes Plan: I/P: Acute: S/P Left total knee arthroplasty - post-operative day 1 -DVT prophylaxis and pain management per primary care team -PT/OT -IS/RT -Monitor oxygen saturation -Titrate oxygen as needed -Vital signs stable -Monitor labs -Pre-operative Hgb was 11.7, now 9.9 -Pre-operative GFR was 55, now 49 Osteoarthritis of left knee -Pain management per primary care team Chronic: LIZANDRO CKD III Depression Anxiety Fibromyalgia GERD HTN HLD h/o ETOH abuse h/o Bipolar Plan: CM for discharge planning GI prophylaxis Home medications as indicated Other orders as listed above Routine AM labs She is a full code. Her PCP is Lara Velasco NP. Overall Laura is doing well. Pain is controlled and she has been working with therapies. She has urinated and is off oxygen. Her labs and vital signs are stable. She has no concerns. No nursing concerns. She is cleared for discharge pending primary team and PT/OT approval. Thank you for allowing us to participate in the care of this patient!!
--- NOTE | 2018-07-19 07:54 | PCM.SURGPN ---
- General Info Date of Service: 07/19/18 POD#: 1 Functional Status: Reports: Pain Controlled, Tolerating Diet, Ambulating, Urinating, Incentive Spirometry, Other (The pt states she is doing well.) - Patient Data Vitals - Most Recent: Last Vital Signs Temp 98.1 F 07/19/18 04:36 Pulse 87 07/19/18 04:36 Resp 16 07/19/18 04:36 BP 139/53 L 07/19/18 04:36 Pulse Ox 93 L 07/19/18 04:36 Weight - Most Recent: 139 lb 14.4 oz I&O - Last 24 Hours: Intake & Output 07/18/18 07/19/18 07/19/18 22:59 06:59 14:59 Intake Total 600 850 Output Total 200 950 Balance 400 -100 Lab Results Last 24 Hrs: Laboratory Results - last 24 hr 07/19/18 Range/Units 06:40 WBC 5.74 (3.98-10.04) K/mm3 RBC 3.21 L (3.98-5.22) M/mm3 Hgb 9.9 L (11.2-15.7) gm/L Hct 30.6 L (34.1-44.9) % MCV 95.3 H (79.4-94.8) fl MCH 30.8 (25.6-32.2) pg MCHC 32.4 (32.2-35.5) g/dl RDW Std Deviation 40.5 (36.4-46.3) fL Plt Count 205 (182-369) K/mm3 MPV 9.6 (9.4-12.3) fl Med Orders - Current: Current Medications Amlodipine Besylate (Norvasc) 10 mg PO DAILY [facility] Aspirin (Ecotrin) 325 mg PO BID [facility] Bisacodyl (Dulcolax) 5 mg PO DAILY PRN PRN Reason: Constipation Cyclobenzaprine HCl (Flexeril) 10 mg PO TID PRN PRN Reason: Spasms Docusate Sodium (Colace) 100 mg PO BID [facility] Last Admin: 07/18/18 20:12 Dose: 100 mg Duloxetine HCl (Cymbalta) 60 mg PO BID [facility] Last Admin: 07/18/18 20:12 Dose: 60 mg Famotidine (Pepcid) 20 mg PO Q12H [facility] Last Admin: 07/18/18 20:12 Dose: 20 mg Cefazolin Sodium/Dextrose 2 gm (/ Premix) 50 mls @ 100 mls/hr IV Q8H [facility] Stop: 07/19/18 10:29 Last Admin: 07/19/18 01:20 Dose: 100 mls/hr Lisinopril (Prinivil) 40 mg PO DAILY [facility] Magnesium Hydroxide (Milk Of Magnesia) 30 ml PO BID PRN PRN Reason: Constipation Metoprolol Succinate (Toprol Xl) 50 mg PO DAILY [facility] Morphine Sulfate (Morphine) 2 mg IVPUSH Q2H PRN PRN Reason: Breakthrough Pain Multivitamins (Thera) 1 each PO DAILY [facility] Naloxone HCl (Narcan) 0.1 mg IVPUSH Q5M PRN PRN Reason: Oversedation Ondansetron HCl (Zofran) 4 mg IVPUSH Q6H PRN PRN Reason: Nausea/Vomiting Oxycodone/Acetaminophen (Percocet 325-5 Mg) 1 - 2 tab PO Q4H PRN PRN Reason: Pain Last Admin: 07/19/18 06:44 Dose: 2 tab Vortioxetine Hydrobromide [ Trintellix] 20 Mg 0 each PO DAILY [facility] Prazosin HCl (Minpress) 2 mg PO BID [facility] Last Admin: 07/18/18 20:13 Dose: 2 mg Senna (Senna) 8.6 mg PO BID PRN PRN Reason: Constipation Simvastatin (Zocor) 20 mg PO DAILY [facility] Discontinued Medications Acetaminophen (Tylenol) 975 mg PO ONETIME [facility] Stop: 07/18/18 12:00 Last Admin: 07/18/18 10:24 Dose: 975 mg Bupivacaine HCl (Sensorcaine-Mpf 0.75%) Confirm Administered Dose 30 ml .ROUTE .STK-MED ONE Stop: 07/18/18 09:38 Bupivacaine HCl (Marcaine 0.25%) Confirm Administered Dose 30 ml .ROUTE .STK- MED ONE Stop: 07/18/18 09:53 Last Admin: 07/18/18 13:12 Dose: 30 ml Cefazolin Sodium (Ancef) Confirm Administered Dose 2 gm .ROUTE .STK-MED ONE Stop: 07/18/18 09:48 Last Admin: 07/18/18 13:08 Dose: 2 gm Cefazolin Sodium (Ancef) Confirm Administered Dose 2 gm .ROUTE .STK-MED ONE Stop: 07/18/18 09:53 Morphine Sulfate 8 mg/Epinephrine HCl 0.3 mg/Cefuroxime Sodium 750 mg/Ketorolac Tromethamine 30 mg/Sodium Chloride 27.9 ml 0 mg .XX ONETIME ONE Stop: 07/18/18 09:31 Last Admin: 07/18/18 13:12 Dose: 788.3 mg Epinephrine HCl (Adrenalin) Confirm Administered Dose 1 mg .ROUTE .STK-MED ONE Stop: 07/18/18 08:48 Fentanyl (Sublimaze) Confirm Administered Dose 100 mcg .ROUTE .STK-MED ONE Stop: 07/18/18 09:37 Fentanyl (Sublimaze) 50 mcg IVPUSH Q5M PRN PRN Reason: Pain Stop: 07/18/18 16:00 Lactated Ringer's (Ringers, Lactated) 1,000 mls @ 125 mls/hr IV ASDIRECTED [facility] Stop: 07/18/18 23:00 Last Admin: 07/18/18 09:45 Dose: 125 mls/hr Lidocaine HCl (Xylocaine-Mpf 1%) Confirm Administered Dose 4 mls @ as directed .ROUTE .STK-MED ONE Stop: 07/18/18 09:38 Lidocaine HCl (Xylocaine-Mpf 1%) Confirm Administered Dose 5 mls @ as directed .ROUTE .STK-MED ONE Stop: 07/18/18 09:38 Iodine (Iodine 2% Mild Tincture) Confirm Administered Dose 30 ml .ROUTE .STK- MED ONE Stop: 07/18/18 09:53 Last Admin: 07/18/18 13:05 Dose: 30 ml Lidocaine/Sodium Bicarbonate (Buffered Lidocaine 1% In Ns 8.4%) 0.25 ml IDERM ONETIME PRN PRN Reason: Prior to IV Start Stop: 07/18/18 18:00 Oxycodone HCl (Oxycontin) 10 mg PO ASDIRECTED [facility] Stop: 07/18/18 12:00 Last Admin: 07/18/18 10:24 Dose: 10 mg Pregabalin (Lyrica) 50 mg PO ONETIME [facility] Stop: 07/18/18 18:00 Last Admin: 07/18/18 10:24 Dose: 50 mg Propofol (Diprivan 20 Ml) Confirm Administered Dose 200 mg .ROUTE .STK-MED ONE Stop: 07/18/18 09:37 Propofol (Diprivan 20 Ml) Confirm Administered Dose 200 mg .ROUTE .STK-MED ONE Stop: 07/18/18 11:22 Propofol (Diprivan 20 Ml) Confirm Administered Dose 200 mg .ROUTE .STK-MED ONE Stop: 07/18/18 12:04 Propofol (Diprivan 20 Ml) Confirm Administered Dose 200 mg .ROUTE .STK-MED ONE Stop: 07/18/18 12:40 Propofol (Diprivan 20 Ml) Confirm Administered Dose 200 mg .ROUTE .STK-MED ONE Stop: 07/18/18 13:17 Ropivacaine (Naropin 0.5%) Confirm Administered Dose 30 ml .ROUTE .STK-MED ONE Stop: 07/18/18 08:48 Sodium Chloride (Saline Flush) 10 ml FLUSH ASDIRECTED PRN PRN Reason: Keep Vein Open Stop: 07/18/18 18:00 Tranexamic Acid (Cyklokapron) Confirm Administered Dose 1,000 mg .ROUTE .STK- MED ONE Stop: 07/18/18 09:53 Last Admin: 07/18/18 13:21 Dose: 1,000 mg Vancomycin HCl (Vancomycin) Confirm Administered Dose 1 gm .ROUTE .STK-MED ONE Stop: 07/18/18 09:53 Last Admin: 07/18/18 13:17 Dose: 1 gm - Exam Wound/Incisions: Dressing Dry and Intact General: Alert, Cooperative, No Acute Distress Lungs: Normal Respiratory Effort Extremities: Other (NVS intact for BLE. Yoana's negative.) - Problem List Review Problem List Initiated/Reviewed/Updated: Yes - My Orders Last 24 Hours: Active Orders 24 hr Category Date Time Status Patient Status [ADT] Routine ADT 07/18/18 06:56 Active Ambulate [RC] PER UNIT ROUTINE Care 07/18/18 06:55 Active Cooling Warming Measures [RC] ASDIRECTED Care 07/18/18 13:52 Inactive May Shower [RC] ASDIRECTED Care 07/18/18 06:55 Active Notify Provider Consults [RC] ASDIRECTED Care 07/18/18 06:58 Active Notify Provider [RC] ASDIRECTED Care 07/18/18 13:52 Active Oxygen Therapy [RC] PRN Care 07/18/18 06:56 Active RT Incentive Spirometry [RC] Q1HWA Care 07/18/18 06:55 Active Ready for Discharge [RC] PER UNIT ROUTINE Care 07/19/18 07:52 Ordered Up to Chair [RC] ASDIRECTED Care 07/18/18 06:55 Active Verify Patient Consent Obtain [RC] ASDIRECTED Care 07/18/18 13:52 Inactive Vital Signs [RC] Q15M Care 07/18/18 13:51 Inactive Vital Signs [RC] Q4HR Care 07/18/18 06:56 Active Consult to Physician [CONS] Routine Cons 07/18/18 06:55 Active OT Evaluation and Treatment [CONS] Routine Cons 07/18/18 06:55 Active PT Evaluation and Treatment [CONS] Routine Cons 07/18/18 06:55 Active Regular Diet [DIET] Diet 07/18/18 Lunch Active COMPREHENSIVE METABOLIC PN,CMP [CHEM] AM Lab 07/19/18 06:40 Received Acetaminophen/oxyCODONE [Percocet 325-5 MG] Med 07/18/18 13:00 Active 1 - 2 tab PO Q4H PRN Aspirin [Ecotrin] Med 07/19/18 09:00 Active 325 mg PO BID Bisacodyl [Dulcolax] Med 07/18/18 13:00 Active 5 mg PO DAILY PRN Cyclobenzaprine [Flexeril] Med 07/18/18 13:00 Active 10 mg PO TID PRN DULoxetine [Cymbalta] Med 07/18/18 21:00 Active 60 mg PO BID Docusate Sodium [Colace] Med 07/18/18 21:00 Active 100 mg PO BID Famotidine [Pepcid] Med 07/18/18 21:00 Active 20 mg PO Q12H Lisinopril [Prinivil] Med 07/19/18 09:00 Active 40 mg PO DAILY Magnesium Hydroxide [Milk of Magnesia] Med 07/18/18 13:00 Active 30 ml PO BID PRN Metoprolol Succinate [Toprol XL] Med 07/19/18 09:00 Active 50 mg PO DAILY Morphine Med 07/18/18 13:00 Active 2 mg IVPUSH Q2H PRN Multivitamins,Therapeutic [Thera] Med 07/19/18 09:00 Active 1 each PO DAILY Naloxone [Narcan] Med 07/18/18 13:00 Active 0.1 mg IVPUSH Q5M PRN Ondansetron [Zofran] Med 07/18/18 13:00 Active 4 mg IVPUSH Q6H PRN Patient's Own Medication [Ptom] Med 07/19/18 09:00 Active 0 each PO DAILY Prazosin [Minpress] Med 07/18/18 21:00 Active 2 mg PO BID Sennosides [Senna] Med 07/18/18 13:00 Active 8.6 mg PO BID PRN Simvastatin [Zocor] Med 07/19/18 09:00 Active 20 mg PO DAILY amLODIPine [Norvasc] Med 07/19/18 09:00 Active 10 mg PO DAILY ceFAZolin [Ancef] 2 gm Med 07/18/18 18:00 Active Premix Bag 1 bag IV Q8H Antiembolic Hose [OM.PC] Per Unit Routine Oth 07/18/18 06:57 Ordered Ice Therapy [OM.PC] Per Unit Routine Oth 07/18/18 06:56 Ordered Sequential Compression Device [OM.PC] Per Unit Routine Oth 07/18/18 06:55 Ordered Resuscitation Status Routine Resus Stat 07/18/18 06:55 Ordered Medication Orders Amlodipine Besylate (Norvasc) 10 mg PO DAILY [facility] Aspirin (Ecotrin) 325 mg PO BID [facility] Bisacodyl (Dulcolax) 5 mg PO DAILY PRN PRN Reason: Constipation Cyclobenzaprine HCl (Flexeril) 10 mg PO TID PRN PRN Reason: Spasms Docusate Sodium (Colace) 100 mg PO BID [facility] Last Admin: 07/18/18 20:12 Dose: 100 mg Duloxetine HCl (Cymbalta) 60 mg PO BID [facility] Last Admin: 07/18/18 20:12 Dose: 60 mg Famotidine (Pepcid) 20 mg PO Q12H [facility] Last Admin: 07/18/18 20:12 Dose: 20 mg Cefazolin Sodium/Dextrose 2 gm (/ Premix) 50 mls @ 100 mls/hr IV Q8H [facility] Stop: 07/19/18 10:29 Last Admin: 07/19/18 01:20 Dose: 100 mls/hr Infusion: 07/18/18 17:52 Dose: 100 mls/hr Admin: 07/18/18 17:22 Dose: 100 mls/hr Lisinopril (Prinivil) 40 mg PO DAILY [facility] Magnesium Hydroxide (Milk Of Magnesia) 30 ml PO BID PRN PRN Reason: Constipation Metoprolol Succinate (Toprol Xl) 50 mg PO DAILY [facility] Morphine Sulfate (Morphine) 2 mg IVPUSH Q2H PRN PRN Reason: Breakthrough Pain Multivitamins (Thera) 1 each PO DAILY [facility] Naloxone HCl (Narcan) 0.1 mg IVPUSH Q5M PRN PRN Reason: Oversedation Ondansetron HCl (Zofran) 4 mg IVPUSH Q6H PRN PRN Reason: Nausea/Vomiting Oxycodone/Acetaminophen (Percocet 325-5 Mg) 1 - 2 tab PO Q4H PRN PRN Reason: Pain Last Admin: 07/19/18 06:44 Dose: 2 tab Admin: 07/19/18 01:22 Dose: 2 tab Vortioxetine Hydrobromide [ Trintellix] 20 Mg 0 each PO DAILY [facility] Prazosin HCl (Minpress) 2 mg PO BID [facility] Last Admin: 07/18/18 20:13 Dose: 2 mg Senna (Senna) 8.6 mg PO BID PRN PRN Reason: Constipation Simvastatin (Zocor) 20 mg PO DAILY [facility] - Assessment Assessment (Free Text/Narrative):: POD#1 - left unicompartmental knee revision to TKA - Plan Plan (Free Text/Narrative):: 1. Discharge to home today. 2. 325mg ASA BID, frequent mobility, TEDs. 3. Hgb 9.9. The pt's case was discussed with Dr. Rangel.
--- NOTE | 2018-07-19 07:56 | PCM.DCSUM1 ---
Discharge Summary - Hospital Course Brief History: Laura is a 72 yo female who underwent left unicompartmental knee revision to TKA with Dr. Rangel on 07-18-2018. The procedure was completed under spinal anesthesia with sedation. The pt tolerated the procedure well and was admitted to the Medical-Surgical Unit. Medical management was provided by the Hospitalist service. The pt's Hospital course was uneventful. The pt's Hgb on POD#1 was 9.9. On POD#1, 325mg ASA BID was initiated for VTE prophylaxis. SCDs and TEDs were also ordered. A Mepilex dressing was placed at the incision site at the time of surgery and remained clean and dry. The pt participated in P.T. and O.T. and progressed well. The pt was allowed to WBAT. On POD#1, the pt was deemed appropriate to discharge to home with her son. - Discharge Data Discharge Date: 07/19/18 Discharge Disposition: Home, Self-Care 01 Condition: Good - Patient Summary/Data Consults: Consultations 07/18/18 06:55 Consult to Physician [CONS] Routine OT Evaluation and Treatment [CONS] Routine PT Evaluation and Treatment [CONS] Routine - Patient Instructions Diet: Usual Diet as Tolerated Activity: Apply Ice, As Tolerated, Elevate Extremity, Full Weight Bearing Driving: Do Not Drive Showering/Bathing: May Shower Wound/Incision Care: Keep Operative Site/Wound Site Clean and Dry, Do NOT Change Dressing Notify Provider of: Fever, Increased Pain, Swelling and Redness, Drainage, Nausea and/or Vomiting Other/Special Instructions: Please get up and moving around EVERY HOUR while awake. This helps to prevent blood clots. Have help with mobility as needed. Please take 325mg aspirin twice daily - this also helps to prevent blood clots. The medication is being used for blood clot prevention and not for pain control, so please use the medication twice daily as directed. Please wear the BRE hose during the day and you may remove them at night. Please schedule for P.T. Complete the P.T. exercises and stretches that were instructed in the Hospital. Please use the pain medication as needed. The medication may cause drowsiness and/or constipation. You could use a stool softener like docusate sodium or Colace 100mg twice daily and/or a laxative like Miralax daily for constipation. Contact your primary care provider for further instructions if you are constipated. Try to wean from use of the pain medication as soon as able. Please do not use other medications that may cause drowsiness (other pain medications, anxiety pills, sleeping pills, allergy medications that cause drowsiness) while using the pain medication. Please do not use alcohol while using the pain medication. Use the incentive spirometer often. Please place ice to the knee often. Please elevate the limb to decrease swelling. Keep the Mepilex dressing in place until follow-up. Please notify the Clinic if the dressing is saturated or rolls. Increase protein intake in your diet as this helps with healing. If you are a diabetic, please closely monitor your blood sugars and notify your primary care provider of your values. Elevated blood sugars increases the risk of infection. Please call [phone] with questions or concerns. - Discharge Plan *PRESCRIPTION DRUG MONITORING PROGRAM REVIEWED*: No *COPY OF PRESCRIPTION DRUG MONITORING REPORT IN PATIENT LANCE: No Prescriptions/Med Rec: Acetaminophen/oxyCODONE [Percocet 325-5 MG] 1 - 2 tab PO Q6H PRN #60 tablet PRN Reason: Pain Aspirin [Ecotrin] 325 mg PO BID #84 tab.ec Home Medications: Home Meds DULoxetine HCl [Cymbalta] 60 mg PO BID 06/06/18 [History] Lisinopril 40 mg PO DAILY 06/06/18 [History] Metoprolol Succinate 50 mg PO DAILY 06/06/18 [History] Simvastatin 20 mg PO QPM 06/06/18 [History] amLODIPine Besylate [Amlodipine Besylate] 10 mg PO DAILY 06/06/18 [History] FA/Lycopene/Lut/MV,Ca,Iron,Min [Centrum] 1 tab PO DAILY 07/18/18 [History] Prazosin HCl [Prazosin] 2 mg PO BID 07/18/18 [History] Vortioxetine Hydrobromide [Trintellix] 20 mg PO DAILY 07/18/18 [History] Acetaminophen/oxyCODONE [Percocet 325-5 MG] 1 - 2 tab PO Q6H PRN #60 tablet [Rx] Aspirin [Ecotrin] 325 mg PO BID #84 tab.ec 07/19/18 [Rx] Bisacodyl [Dulcolax] 5 mg PO DAILY PRN tablet 07/19/18 [Rx] Docusate Sodium [Colace] 100 mg PO BID cap 07/19/18 [Rx] Famotidine [Pepcid] 20 mg PO Q12H tablet 07/19/18 [Rx] Magnesium Hydroxide [Milk of Magnesia] 30 ml PO BID PRN cup 07/19/18 [Rx] Sennosides [Senna] 8.6 mg PO BID PRN tablet 07/19/18 [Rx] Patient Handouts: Aspirin, ASA oral tablets Referrals: Maris Armijo PA-C [Physician Presidential Support Specialist] - - Patient Data Vitals - Most Recent: Last Vital Signs Temp 98.1 F 07/19/18 04:36 Pulse 87 07/19/18 04:36 Resp 16 07/19/18 04:36 BP 139/53 L 07/19/18 04:36 Pulse Ox 93 L 07/19/18 04:36 Weight - Most Recent: 139 lb 14.4 oz I&O - Last 24 hours: Intake & Output 07/18/18 07/19/18 07/19/18 22:59 06:59 14:59 Intake Total 600 850 Output Total 200 950 Balance 400 -100 Lab Results - Last 24 hrs: Laboratory Results - last 24 hr 07/19/18 Range/Units 06:40 WBC 5.74 (3.98-10.04) K/mm3 RBC 3.21 L (3.98-5.22) M/mm3 Hgb 9.9 L (11.2-15.7) gm/L Hct 30.6 L (34.1-44.9) % MCV 95.3 H (79.4-94.8) fl MCH 30.8 (25.6-32.2) pg MCHC 32.4 (32.2-35.5) g/dl RDW Std Deviation 40.5 (36.4-46.3) fL Plt Count 205 (182-369) K/mm3 MPV 9.6 (9.4-12.3) fl Med Orders - Current: Current Medications Amlodipine Besylate (Norvasc) 10 mg PO DAILY [facility] Aspirin (Ecotrin) 325 mg PO BID [facility] Bisacodyl (Dulcolax) 5 mg PO DAILY PRN PRN Reason: Constipation Cyclobenzaprine HCl (Flexeril) 10 mg PO TID PRN PRN Reason: Spasms Docusate Sodium (Colace) 100 mg PO BID [facility] Last Admin: 07/18/18 20:12 Dose: 100 mg Duloxetine HCl (Cymbalta) 60 mg PO BID [facility] Last Admin: 07/18/18 20:12 Dose: 60 mg Famotidine (Pepcid) 20 mg PO Q12H [facility] Last Admin: 07/18/18 20:12 Dose: 20 mg Cefazolin Sodium/Dextrose 2 gm (/ Premix) 50 mls @ 100 mls/hr IV Q8H [facility] Stop: 07/19/18 10:29 Last Admin: 07/19/18 01:20 Dose: 100 mls/hr Lisinopril (Prinivil) 40 mg PO DAILY [facility] Magnesium Hydroxide (Milk Of Magnesia) 30 ml PO BID PRN PRN Reason: Constipation Metoprolol Succinate (Toprol Xl) 50 mg PO DAILY [facility] Morphine Sulfate (Morphine) 2 mg IVPUSH Q2H PRN PRN Reason: Breakthrough Pain Multivitamins (Thera) 1 each PO DAILY [facility] Naloxone HCl (Narcan) 0.1 mg IVPUSH Q5M PRN PRN Reason: Oversedation Ondansetron HCl (Zofran) 4 mg IVPUSH Q6H PRN PRN Reason: Nausea/Vomiting Oxycodone/Acetaminophen (Percocet 325-5 Mg) 1 - 2 tab PO Q4H PRN PRN Reason: Pain Last Admin: 07/19/18 06:44 Dose: 2 tab Vortioxetine Hydrobromide [ Trintellix] 20 Mg 0 each PO DAILY [facility] Prazosin HCl (Minpress) 2 mg PO BID [facility] Last Admin: 07/18/18 20:13 Dose: 2 mg Senna (Senna) 8.6 mg PO BID PRN PRN Reason: Constipation Simvastatin (Zocor) 20 mg PO DAILY [facility] Discontinued Medications Acetaminophen (Tylenol) 975 mg PO ONETIME [facility] Stop: 07/18/18 12:00 Last Admin: 07/18/18 10:24 Dose: 975 mg Bupivacaine HCl (Sensorcaine-Mpf 0.75%) Confirm Administered Dose 30 ml .ROUTE .STK-MED ONE Stop: 07/18/18 09:38 Bupivacaine HCl (Marcaine 0.25%) Confirm Administered Dose 30 ml .ROUTE .STK- MED ONE Stop: 07/18/18 09:53 Last Admin: 07/18/18 13:12 Dose: 30 ml Cefazolin Sodium (Ancef) Confirm Administered Dose 2 gm .ROUTE .STK-MED ONE Stop: 07/18/18 09:48 Last Admin: 07/18/18 13:08 Dose: 2 gm Cefazolin Sodium (Ancef) Confirm Administered Dose 2 gm .ROUTE .STK-MED ONE Stop: 07/18/18 09:53 Morphine Sulfate 8 mg/Epinephrine HCl 0.3 mg/Cefuroxime Sodium 750 mg/Ketorolac Tromethamine 30 mg/Sodium Chloride 27.9 ml 0 mg .XX ONETIME ONE Stop: 07/18/18 09:31 Last Admin: 07/18/18 13:12 Dose: 788.3 mg Epinephrine HCl (Adrenalin) Confirm Administered Dose 1 mg .ROUTE .ST-MED ONE Stop: 07/18/18 08:48 Fentanyl (Sublimaze) Confirm Administered Dose 100 mcg .ROUTE .ST-MED ONE Stop: 07/18/18 09:37 Fentanyl (Sublimaze) 50 mcg IVPUSH Q5M PRN PRN Reason: Pain Stop: 07/18/18 16:00 Lactated Ringer's (Ringers, Lactated) 1,000 mls @ 125 mls/hr IV ASDIRECTED [facility] Stop: 07/18/18 23:00 Last Admin: 07/18/18 09:45 Dose: 125 mls/hr Lidocaine HCl (Xylocaine-Mpf 1%) Confirm Administered Dose 4 mls @ as directed .ROUTE .ST-MED ONE Stop: 07/18/18 09:38 Lidocaine HCl (Xylocaine-Mpf 1%) Confirm Administered Dose 5 mls @ as directed .ROUTE .ST-MED ONE Stop: 07/18/18 09:38 Iodine (Iodine 2% Mild Tincture) Confirm Administered Dose 30 ml .ROUTE .ST- MED ONE Stop: 07/18/18 09:53 Last Admin: 07/18/18 13:05 Dose: 30 ml Lidocaine/Sodium Bicarbonate (Buffered Lidocaine 1% In Ns 8.4%) 0.25 ml IDERM ONETIME PRN PRN Reason: Prior to IV Start Stop: 07/18/18 18:00 Oxycodone HCl (Oxycontin) 10 mg PO ASDIRECTED [facility] Stop: 07/18/18 12:00 Last Admin: 07/18/18 10:24 Dose: 10 mg Pregabalin (Lyrica) 50 mg PO ONETIME [facility] Stop: 07/18/18 18:00 Last Admin: 07/18/18 10:24 Dose: 50 mg Propofol (Diprivan 20 Ml) Confirm Administered Dose 200 mg .ROUTE .STK-MED ONE Stop: 07/18/18 09:37 Propofol (Diprivan 20 Ml) Confirm Administered Dose 200 mg .ROUTE .STK-MED ONE Stop: 07/18/18 11:22 Propofol (Diprivan 20 Ml) Confirm Administered Dose 200 mg .ROUTE .STK-MED ONE Stop: 07/18/18 12:04 Propofol (Diprivan 20 Ml) Confirm Administered Dose 200 mg .ROUTE .STK-MED ONE Stop: 07/18/18 12:40 Propofol (Diprivan 20 Ml) Confirm Administered Dose 200 mg .ROUTE .STK-MED ONE Stop: 07/18/18 13:17 Ropivacaine (Naropin 0.5%) Confirm Administered Dose 30 ml .ROUTE .STK-MED ONE Stop: 07/18/18 08:48 Sodium Chloride (Saline Flush) 10 ml FLUSH ASDIRECTED PRN PRN Reason: Keep Vein Open Stop: 07/18/18 18:00 Tranexamic Acid (Cyklokapron) Confirm Administered Dose 1,000 mg .ROUTE .STK- MED ONE Stop: 07/18/18 09:53 Last Admin: 07/18/18 13:21 Dose: 1,000 mg Vancomycin HCl (Vancomycin) Confirm Administered Dose 1 gm .ROUTE .STK-MED ONE Stop: 07/18/18 09:53 Last Admin: 07/18/18 13:17 Dose: 1 gm
--- NOTE | 2018-07-19 07:56 | PCM48HPAN ---
Post Anesthesia Note - EVALUATION WITHIN 48HRS OF ANESTHETIC Vital Signs in Normal Range: Yes Patient Participated in Evaluation: Yes Respiratory Function Stable: Yes Airway Patent: Yes Cardiovascular Function Stable: Yes Hydration Status Stable: Yes Pain Control Satisfactory: Yes Nausea and Vomiting Control Satisfactory: Yes Mental Status Recovered: Yes
[2018-07-19] MEDS: DULoxetine 30 MG Cap PO SCH (08:22)
[2018-07-19] MEDS: Famotidine 20 MG Tab PO SCH (08:23)
[2018-07-19] MEDS: Docusate Sodium 100 MG Cap PO SCH (08:23)
[2018-07-19] MEDS: Prazosin 1 MG Cap PO SCH (08:25)
[2018-07-19] MEDS ORDERED: Vortioxetine Hydrobromide [Trintellix] 20 MG PO SCH (09:00)
[2018-07-19] MEDS ORDERED: Metoprolol Succinate 50 MG Tab.ER PO SCH (09:00)
[2018-07-19] MEDS ORDERED: Aspirin 325 MG Tab.EC PO SCH (09:00)
[2018-07-19] MEDS ORDERED: amLODIPine 10 MG Tab PO SCH (09:00)
[2018-07-19] MEDS ORDERED: Multivitamins,Therapeutic Tab PO SCH (09:00)
[2018-07-19] MEDS ORDERED: Simvastatin 20 MG Tab PO SCH (09:00)
[2018-07-19] MEDS ORDERED: Lisinopril 20 MG Tab PO SCH (09:00)
--- NOTE | 2018-07-19 15:22 | PCM.SN ---
- Free Text/Narrative Note: After discharge labs were reviewed further and it was noted Laura's LFTs were elevated. AST was 849, ALT 647, Alk Phos 141. Bilirubin was 0.7. Unfortunately this was not noticed until after discharge. Prior labs were reviewed and last CMP was August of 2017, which was WNL. Dr. Magallon updated and recommends holding statin along with PCP follow-up next week. Contacted patients PCP and updated her on these results. She reports patient has follow-up on Sunday and will draw labs then. She is not concerned at this point with the follow-up so close. Maris Armijo PA-C from Dr. Rangel's office will send Oxycodone Rx to pharmacy to avoid tylenol. Updated them as well. I contacted Laura personally to update on labs and plan. Advised to not take tylenol or consume alcohol. Discussed holding statin until she sees her PCP. She stated she had already picked up her percocet. Advised to not take and her new prescription has been sent to her pharmacy. Advised to seek immediate medical care or come to the ED should she develop dark urine, abdominal pain, yellow colored skin or eyes, or any other issues. She voiced understanding. Will defer further workup to PCP.
--- NOTE | 2018-07-29 07:24 | PCM.OPNOTE ---
- General Post-Op/Procedure Note Date of Surgery/Procedure: 07/18/18 Operative Procedure(s): revision of left unicompartmental knee arthroplasty to total knee arthroplasty Pre Op Diagnosis: painful left unicompartmental knee arthroplasty Post-Op Diagnosis: Same Anesthesia Technique: Local, MAC, Spinal Primary Surgeon: Bernardo Rangel Anesthesia Provider: Bonifacio Handy Brake Repairer Air: Maris Armijo Brake Repairer Air: Yvonne Egan EBL in mLs: 5 Complications: None Condition: Good Free Text/Narrative:: size 4/4 11mm augments [id number]
--- NOTE | 2018-07-29 08:26 | OR ---
DATE OF OPERATION: 07/18/2018 SURGEON: Bernardo Rangel MD OPERATION PERFORMED: Revision of left unicompartmental knee arthroplasty to total knee arthroplasty. PREOPERATIVE DIAGNOSIS: Painful left unicompartmental knee arthroplasty. POSTOPERATIVE DIAGNOSIS: Painful left unicompartmental knee arthroplasty. ANESTHESIA: Local MAC with spinal. ANESTHESIOLOGIST: Bonifacio Handy CRNA. RAIL CAR MAINTENANCE MECHANIC: 1. Maris Armijo PA-C. 2. Yvonne Egan LPN. ESTIMATED BLOOD LOSS: 5 mL. COMPLICATIONS: None. CONDITION: Stable. IMPLANTS: 1. [place] size 4 TS femur. 2. [place] Prong size 4 universal tibial base plate. 3. [place] size 4, 11 mm PS X3 polyethylene. 4. [place] size 5 mm distal femoral augment. 5. [place] size 5 mm posterior medial posterior femoral augment. 6. A 32 x 10 mm [place]ong asymmetric cemented patella. DESCRIPTION OF PROCEDURE: The patient was identified in preop holding area. Proper site was marked and identified by the surgeon. The patient was taken back to the operating theater where after adequate anesthesia, the patient's left lower extremity was sterilely prepped and draped in the usual sterile fashion. OR time-out was performed. The patient received 2 g IV Ancef. The left lower extremity was exsanguinated. Tourniquet was insufflated to 250 mmHg. The previous incision was utilized and then was extended and a medial parapatellar arthrotomy was created. Deep fibers in the MCL were raised and the anterior fat pad was resected. Attention was turned to the patella. Patella measured a 23 and it was resected to a 13 for a 32 x 10 mm patella. Drill holes were then drilled and found to be adequate. Attention was turned to the previous implants. At this time, with the use of a sagittal saw, as well as flexible osteotomes, I was able to remove fairly easily both the tibial and femoral components. It was noted to be somewhat subsided especially on the femoral side. Once this was completed, drill hole was placed into the femur and the distal femoral cutting guide was then placed. I did resect 10 mm off the distal femur, but the jig was on incorrectly, so we did make up for this. There was noted to be a considerable gap still on the medial side, so distal femoral augment would be needed. The 4-in-1 cutting block was then placed and the box cut, as well as the anterior and posterior chamfer cuts were then completed. It was noted again that we would need a 5 mm posterior augment at this time as well. Attention was then turned to the femur. Posterior retractors as well as the mediolateral retractors were then placed. Drill hole was placed in the old footprint of the ACL and the tibial cutting guide. The intramedullary tibial cutting guide was then placed. It was decided at this time, we would need a 5 mm augment on the medial side of the tibia as well. So, the augment cut was made on the medial side and then a 0 cut was made on the lateral side. At this time, it was decided the bone quality was fairly good, so we would not have to do long- stemmed components. Trial components were then placed. The box cut was insufficient at this time, so I did have to redo the box cut at this time, and revise the 4-in-1 cutting block on the posterior aspect until there was proper alignment. At this time, trial components were placed. The 11 mm Poly trial spacer was placed and the patient's knee was brought through range of motion and patella was tracking centrally, and there were no signs of instability. At this time, cement was mixed on the back table and all components were assembled on the back table. A size 4 tibia with a 5 mm medial augment was then impacted into place and then cemented in place. The size 4 PS femur was then impacted in place with the distal femoral, as well as posterior medial augment and this was cemented into place. The 11 mm PS X3 polyethylene was placed and the patient's knee was brought into full extension. All excess cement was removed. A 32 x 10 mm patella was then cemented into place. At this time, 1 L dilute Betadine solution was irrigated through the knee along with 3 L pulse lavage irrigation with Ancef. Topical tranexamic acid, as well as vancomycin powder was placed and a periarticular injection was completed. A #2 barbed suture was used for closure of the medial parapatellar arthrotomy. A 2-0 Vicryl, as well as barbed suture was used for subcutaneous closure and Prineo were used for the skin. The patient had a sterile soft dressing and was sent to PACU in stable condition. TULIO /[id number]
== END 2018-07-19 11:00 | disposition home or self-care (01) | DRG 468 ==
LOC: JD.MS 09:31
PROVIDERS: ADMIT Orthopaedic Surgery; ATTEND Orthopaedic Surgery
PROC: 0SPD0JZ Removal of Synthetic Substitute from Left Knee Joint, Open Approach (ICD-10-PCS; principal; 2018-07-18)
PROC: 0SRD0J9 Replacement of Left Knee Joint with Synthetic Substitute, Cemented, Open Approach (ICD-10-PCS; principal; 2018-07-18)
PROC: 3E0T3BZ Introduction of Anesthetic Agent into Peripheral Nerves and Plexi, Percutaneous Approach (ICD-10-PCS; 2018-07-18)
DX: T84.84XA Pain due to internal orthopedic prosthetic devices, implants and grafts, initial encounter (principal); Y83.8 Other surgical procedures as the cause of abnormal reaction of the patient, or of later complication, without mention of misadventure at the time of the procedure; G47.33 Obstructive sleep apnea (adult) (pediatric); I12.9 Hypertensive chronic kidney disease with stage 1 through stage 4 chronic kidney disease, or unspecified chronic kidney disease; N18.3 Chronic kidney disease, stage 3 (moderate); F41.9 Anxiety disorder, unspecified; M79.7 Fibromyalgia; K21.9 Gastro-esophageal reflux disease without esophagitis; E78.5 Hyperlipidemia, unspecified; F31.9 Bipolar disorder, unspecified; H26.9 Unspecified cataract; E78.00 Pure hypercholesterolemia, unspecified; R79.89 Other specified abnormal findings of blood chemistry; G89.18 Other acute postprocedural pain; Z79.82 Long term (current) use of aspirin; Z90.710 Acquired absence of both cervix and uterus; Z90.49 Acquired absence of other specified parts of digestive tract; Z79.899 Other long term (current) drug therapy
CPT/HCPCS: 01402; 36415; 64450; 73560-26-LT; 73560-LT; 80053; 85027; 97110-GP; 97116-GP; 97162-GP; 97165-GO; 97535-GO; A9270-GY; C1713; C1776; J0171; J0690; J0697; J1885; J2001; J2270; J2704; J2795; J3010; J3370; J3490; J7120

== ENCOUNTER 2020-06-25 09:09 | Emergency (ER) | payer MEDICARE, BC ==
--- NOTE | 2020-06-25 09:31 | EDM.PDOC ---
ED HPI GENERAL MEDICAL PROBLEM - General Chief Complaint: Respiratory Problem Stated Complaint: CHEST PAIN/SOB/ARM TINGLING/SWEATING AND CHILLS Time Seen by Provider: 06/25/20 09:30 Source of Information: Reports: Patient, RN Notes Reviewed - History of Present Illness INITIAL COMMENTS - FREE TEXT/NARRATIVE: 74 yr old female with cough, chills, nasal congestion for about the past week. A daughter became ill not long before her onset of sx. She was also at an out of state wedding about 2 wks ago. She does feel short of breath at times. Cough has been nonproductive. Has had some nausea, no vomiting. - Related Data Allergies Allergy/AdvReac Type Severity Reaction Status Date / Time No Known Allergies Allergy Verified 09/11/18 12:46 Home Meds: Home Meds Acetaminophen/HYDROcodone [Fleming 325-5 MG] 1 tab PO Q6H PRN #10 tablet 06/25/20 [Rx] Alendronate [Fosamax] 70 mg PO WEEKLY 06/25/20 [History] Aspirin [Aspirin EC] 81 mg PO BEDTIME 06/25/20 [History] Metoprolol Succinate 100 mg PO BEDTIME 06/25/20 [History] Ondansetron [Zofran ODT] 4 mg PO Q8HR PRN #7 tab.dis 06/25/20 [Rx] Simvastatin 20 mg PO BEDTIME 06/25/20 [History] amLODIPine [Norvasc] 10 mg PO DAILY 06/25/20 [History] lisinopriL [Lisinopril] 40 mg PO BEDTIME 06/25/20 [History] Past Medical History HEENT History: Reports: Allergic Rhinitis, Cataract, Impaired Vision Cardiovascular History: Reports: High Cholesterol, Hypertension Respiratory History: Reports: Sleep Apnea, Other (See Below) Other Respiratory History: seasonal allergies Gastrointestinal History: Reports: GERD, Other (See Below) Other Gastrointestinal History: elevated LFTs Genitourinary History: Reports: Other (See Below) Other Genitourinary History: chronic kidney disease stage 3, bacteruria BLACKJACK PIT BOSS History: Reports: Other BLACKJACK PIT BOSS History: breast lulmpeactomy and reduction Musculoskeletal History: Reports: Arthritis, Fibromyalgia, Osteoporosis Other Musculoskeletal History: hammertoe correction, partial left knee, left shoulder.bilat carpal tunnel Neurological History: Reports: None Psychiatric History: Reports: Anxiety, Depression, Other (See Below) Other Psychiatric History: daytime somnolence, alcohol abuse, bipolar. Endocrine/Metabolic History: Reports: Osteopenia Other Hematologic History: hypokalemia Immunologic History: Reports: None Oncologic (Cancer) History: Reports: None Dermatologic History: Reports: None - Past Surgical History Cardiovascular Surgical History: Reports: None GI Surgical History: Reports: Appendectomy, Cholecystectomy Endocrine Surgical History: Reports: None Neurological Surgical History: Reports: None Musculoskeletal Surgical History: Reports: Carpal Tunnel, Knee Replacement Oncologic Surgical History: Reports: None Dermatological Surgical History: Reports: None Social & Family History - Family History Family Medical History: Noncontributory - Tobacco Use Smoking Status *Q: Never Smoker Second Hand Smoke Exposure: No - Caffeine Use Caffeine Use: Reports: Coffee - Recreational Drug Use Recreational Drug Use: No ED ROS GENERAL - Review of Systems Review Of Systems: See Below Constitutional: Reports: Chills. Denies: Fever, Diaphoresis HEENT: Reports: Rhinitis. Denies: Throat Pain Respiratory: Reports: Shortness of Breath, Cough. Denies: Sputum Cardiovascular: Denies: Chest Pain GI/Abdominal: Reports: Nausea. Denies: Abdominal Pain, Diarrhea, Vomiting Musculoskeletal: Reports: Other (generalized achiness) Skin: Denies: Rash Neurological: Reports: Dizziness. Denies: Trouble Speaking, Difficulty Walking ED EXAM, GENERAL - Physical Exam Exam: See Below General Appearance: Alert, No Apparent Distress Nose: Normal Inspection Head: Atraumatic Neck: Supple Respiratory/Chest: No Respiratory Distress, Lungs Clear, Normal Breath Sounds Cardiovascular: Regular Rate, Rhythm GI/Abdominal: Soft, Non-Tender Extremities: Non-Tender. No: Pedal Edema, Leg Pain, Redness Neurological: Alert, Oriented, No Motor/Sensory Deficits Skin Exam: Warm, Dry, Normal Color, No Rash Course - Vital Signs Last Recorded V/S: Last Vital Signs Temp 97.5 F 06/25/20 11:27 Pulse 72 06/25/20 11:27 Resp 14 06/25/20 11:27 BP 120/68 06/25/20 11:27 Pulse Ox 100 06/25/20 11:27 - Orders/Labs/Meds Orders: Active Orders 24 hr Category Date Time Status CORONAVIRUS COVID-19 PCR [facility] Stat Lab 06/25/20 11:20 Ordered - Re-Assessments/Exams Free Text/Narrative Re-Assessment/Exam: 06/25/20 11:15. CXR nl. O2 sats 100 per cent. We will screen for covid, to be sent to state lab. Departure - Departure Time of Disposition: 10:59 Disposition: Home, Self-Care 01 Condition: Fair Clinical Impression: Viral syndrome - Discharge Information Prescriptions: Acetaminophen/HYDROcodone [Fleming 325-5 MG] 1 tab PO Q6H PRN #10 tablet PRN Reason: Pain Ondansetron [Zofran ODT] 4 mg PO Q8HR PRN #7 tab.dis PRN Reason: Nausea/Vomiting Instructions: Viral Illness, Adult Referrals: Katie Mayorga, SENIOR BUDGET ANALYST [Primary Care Provider] - Forms: ED Department Discharge Additional Instructions: The symptoms you have are suggestive for covid infection but also correlate with other summer viruses going around. You have been screened for coronavirus. That will be sent to the state lab today. We are typically getting results in 2 to 3 days. We will call you with results when we get that information. Zofran q 6 to 8h as needed for nausea or vomiting. Drink plenty of water to maintain hydration. Self Isolate until you get results of the covid scrreen. Return to ED for severe difficulty breathing, high fever or otherwise as needed. Sepsis Event Note (ED) - Evaluation Sepsis Screening Result: No Definite Risk - Focused Exam Vital Signs: Vital Signs Temp Pulse Resp BP Pulse Ox 06/25/20 11:27 97.5 F 72 14 120/68 100 06/25/20 09:19 97.1 F 77 20 158/60 H 97 - My Orders Last 24 Hours: My Active Orders 06/25/20 11:20 CORONAVIRUS COVID-19 PCR [facility] Stat - Assessment/Plan Last 24 Hours: My Active Orders 06/25/20 11:20 CORONAVIRUS COVID-19 PCR [facility] Stat
--- NOTE | 2020-06-25 10:13 | CR ---
Chest: Portable view of the chest was obtained. Comparison: Prior chest x-ray of 07/04/18. Heart size and mediastinum are within normal limits for portable technique. Lungs are clear with no acute parenchymal change. Scoliosis is noted within the spine with scattered disc space narrowing. Surgical clips are noted from prior cholecystectomy. Impression: 1. Findings as noted above. 2. Nothing acute is appreciated. Diagnostic code #2 This report was dictated in MDT
== END 2020-06-25 11:27 | disposition home or self-care (01) ==
LOC: JD.ED 09:09
DX: B34.9 Viral infection, unspecified (principal); E78.00 Pure hypercholesterolemia, unspecified; I12.9 Hypertensive chronic kidney disease with stage 1 through stage 4 chronic kidney disease, or unspecified chronic kidney disease; N18.3 Chronic kidney disease, stage 3 (moderate); Z90.49 Acquired absence of other specified parts of digestive tract; Z79.899 Other long term (current) drug therapy; Z20.828 Contact with and (suspected) exposure to other viral communicable diseases
CPT/HCPCS: 71045; 99283; U0002

== ENCOUNTER 2021-02-17 07:29 | Day surgery (SDC) | payer MEDICARE, BC ==
--- NOTE | 2021-02-03 13:41 | PCM.EKG ---
#1 Interpretation EKG Date: 02/03/21 Time: 11:51 Rhythm: Other (Sinus arrhythmia with a rate of 50 to 64 bpm) Rate (Beats/Min): 56 Bryant: Normal P-Wave: Enlarged (Consider left atrial hypertrophy pattern) QRS: LBBB ST-T: Other (T wave inversion aVL nonspecific finding) QT: Normal EKG Interpretation Comments: Abnormal ECG
[~2021-02-17 07:29] MED LIST changes: -Acetaminophen 325 MG Tab PO SCH; -EPINEPHrine 1 MG/ML SDV ONE; -Pregabalin 25 MG Cap PO SCH; -Ropivacaine 0.5% 5 MG/ML 30 ML SDV ONE; -oxyCODONE ER 10 MG TAB.ER PO SCH
[2021-02-17] MEDS ORDERED: ceFAZolin 1 GM Vial ONE (07:31)
[2021-02-17] MEDS ORDERED: Lidocaine 1% 30 ML SDV ONE (08:01)
[2021-02-17] MEDS ORDERED: Bupivacaine 0.25% 10 ML SDV ONE (08:01)
--- NOTE | 2021-02-17 11:32 | PCM.OPNOTE ---
- General Post-Op/Procedure Note Date of Surgery/Procedure: 02/17/21 Operative Procedure(s): right middle finger a1 floyd release Pre Op Diagnosis: right middle finger stenosing tenosynovitis Post-Op Diagnosis: Same Anesthesia Technique: Local Primary Surgeon: Bernardo Rangel Technology Advisor: Yvonne Egan EBBeverley in mLs: 5 Complications: None Condition: Good
--- NOTE | 2021-02-24 09:02 | OR ---
DATE OF OPERATION: 02/17/2021 SURGEON: Bernardo Rangel MD OPERATION PERFORMED: Right middle finger A1 floyd release. PREOPERATIVE DIAGNOSIS: Right middle finger stenosing tenosynovitis. POSTOPERATIVE DIAGNOSIS: Right middle finger stenosing tenosynovitis. ANESTHESIA: Local only. PIGMENT PUSHER: Yvonne Egan LPN. ESTIMATED BLOOD LOSS: Less than 5 mL. COMPLICATIONS: None. CONDITION: Stable. DESCRIPTION OF PROCEDURE: The patient was identified in the preoperative holding area. Proper site was marked and identified by the surgeon. The patient was taken back to the operative theater, where right upper extremity was then sterilely prepped and draped in the usual sterile fashion. OR time-out was performed. The patient received 2 g IV Ancef at this time. 1% lidocaine without epinephrine and 0.25% Marcaine without epinephrine were used to anesthetize the incisional site. A transverse incision was made over the A1 floyd. Ragnell retractors were then placed to protect the neurovascular bundles. A Grundy blade and a tenotomy were then used to release the A1 floyd both proximally and distally making sure to stop short of the A2 floyd. Tendon showed no tendinous adhesions. Adequate saline was irrigated through the wound. The patient was told to make a fist multiple times and there was no triggering or catching. 4-0 nylon suture was used for closure of the skin. The patient was placed in a sterile soft dressing and was sent to the PACU in stable condition. MMODAL /[id number]
== END 2021-02-17 09:02 | disposition home or self-care (01) ==
LOC: JD.SDS 07:29
PROVIDERS: ATTEND Orthopaedic Surgery
DX: M65.841 Other synovitis and tenosynovitis, right hand (principal); M65.331 Trigger finger, right middle finger; I35.1 Nonrheumatic aortic (valve) insufficiency; R94.39 Abnormal result of other cardiovascular function study; N18.30 Chronic kidney disease, stage 3 unspecified; I12.9 Hypertensive chronic kidney disease with stage 1 through stage 4 chronic kidney disease, or unspecified chronic kidney disease; E78.00 Pure hypercholesterolemia, unspecified; K21.9 Gastro-esophageal reflux disease without esophagitis; Z01.812 Encounter for preprocedural laboratory examination; Z20.822 Contact with and (suspected) exposure to COVID-19; G47.30 Sleep apnea, unspecified; Z79.899 Other long term (current) drug therapy; Z98.890 Other specified postprocedural states
CPT/HCPCS: 26055; J0690; J3490; 87641

== ENCOUNTER 2021-05-01 06:40 | Observation (INO) | payer MEDICARE, BC ==
[2021-05-01] MEDS ORDERED: Sodium Chloride 0.9% 10 ML Syringe FLUSH PRN (06:47)
--- NOTE | 2021-05-01 06:47 | EDM.PDOC ---
<Antione Christina - Last Filed: 05/01/21 06:47> ED HPI GENERAL MEDICAL PROBLEM - General Chief Complaint: Respiratory Problem Stated Complaint: [facility] Time Seen by Provider: 05/01/21 07:06 - Related Data Allergies Allergy/AdvReac Type Severity Reaction Status Date / Time No Known Allergies Allergy Verified 02/17/21 08:05 Home Meds: Home Meds Metoprolol Succinate 100 mg PO BEDTIME 06/25/20 [History] Simvastatin 20 mg PO BEDTIME 06/25/20 [History] amLODIPine [Norvasc] 5 mg PO DAILY 06/25/20 [History] Alendronate [Fosamax] 1 spray NASBOTH ASDIRECTED 02/17/21 [History] DULoxetine [Cymbalta] 30 mg PO DAILY 02/17/21 [History] Famotidine 20 mg PO BID 02/17/21 [History] Fluticasone Furoate [Children's Flonase Sensimist] 1 spray MARTITA ASDIRECTED PRN 02/17/21 [History] hydrOXYzine HCL [hydrOXYzine] 50 mg PO ASDIRECTED PRN 02/17/21 [History] Apixaban [Eliquis] 5 mg PO BID 05/01/21 [History] Aspirin 81 mg PO DAILY 05/01/21 [History] Ferrous Sulfate 325 mg PO DAILY 05/01/21 [History] Magnesium Hydroxide [Milk of Magnesia] 30 ml PO BEDTIME PRN 05/01/21 [History] Sodium Chloride 1 drop EYEBOTH BID 05/01/21 [History] oxyCODONE HCl/Acetaminophen [Oxycodone-Acetaminophen 5-325] 1 tab PO Q6H PRN 05/01/21 [History] Past Medical History HEENT History: Reports: Allergic Rhinitis, Cataract, Impaired Vision Cardiovascular History: Reports: High Cholesterol, Hypertension Respiratory History: Reports: Sleep Apnea, Other (See Below) Other Respiratory History: seasonal allergies Gastrointestinal History: Reports: GERD, Other (See Below) Other Gastrointestinal History: elevated LFTs Genitourinary History: Reports: Other (See Below) Other Genitourinary History: chronic kidney disease stage 3, bacteruria 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 Endocrine/Metabolic History: Reports: Osteopenia Other Hematologic History: hypokalemia Immunologic History: Reports: None Oncologic (Cancer) History: Reports: None Dermatologic History: Reports: None - Past Surgical History Cardiovascular Surgical History: Reports: None GI Surgical History: Reports: Appendectomy, Cholecystectomy Endocrine Surgical History: Reports: None Neurological Surgical History: Reports: None Musculoskeletal Surgical History: Reports: Carpal Tunnel, Knee Replacement Oncologic Surgical History: Reports: None Dermatological Surgical History: Reports: None Social & Family History - Family History Family Medical History: No Pertinent Family History - Caffeine Use Caffeine Use: Reports: Coffee Departure - Departure Disposition: Refer to Observation Clinical Impression: Postoperative heart failure following cardiac surgery - Discharge Information <Eduardo Ayala - Last Filed: 05/01/21 12:02> ED HPI GENERAL MEDICAL PROBLEM - History of Present Illness INITIAL COMMENTS - FREE TEXT/NARRATIVE: 75-year-old female presents the emergency room with worsening shortness of breath. Patient was discharged from [facility] in [place] yesterday after having a bovine valve placed on what sounds like the aortic position. Her surgery was on the of this month. The patient has had troubles with shortness of breath she states from the time of the surgery. She was having shortness of breath at the time of discharge yesterday and this progressively worsened through the night. She was brought in by EMS. She is not having any chest pressure she has some discomfort associated with the surgery. She describes a fullness and feels like everything is plugged up making it difficult for her to breathe. ED ROS GENERAL - Review of Systems Review Of Systems: See Below Constitutional: Reports: No Symptoms HEENT: Reports: No Symptoms Respiratory: Reports: Shortness of Breath Cardiovascular: Reports: Edema Endocrine: Reports: No Symptoms GI/Abdominal: Reports: No Symptoms : Reports: No Symptoms Musculoskeletal: Reports: No Symptoms Neurological: Reports: No Symptoms ED EXAM, GENERAL - Physical Exam Exam: See Below Exam Limited By: No Limitations General Appearance: Alert, No Apparent Distress Head: Atraumatic, Normocephalic Neck: Normal Inspection, Supple, Non-Tender, Full Range of Motion. No: Lym phadenopathy (L), Lymphadenopathy (R) Respiratory/Chest: No Respiratory Distress, Decreased Breath Sounds, Crackles (Crackles noted in both bases). No: Wheezing, Stridor, Prolonged Expiration Cardiovascular: Regular Rate, Rhythm, Other (1-2+ pitting edema in the lower extremities). No: No Murmur (Subtle murmur heard best on the left upper sternal border) GI/Abdominal: Normal Bowel Sounds, Soft, Non-Tender Back Exam: Normal Inspection. No: CVA Tenderness (L), CVA Tenderness (R) Extremities: Pedal Edema (1-2+ pitting edema), Other (On the patient's right hand she has an area of superficial phlebitis about 2 1/2 inches long ulnar aspect of the dorsum) Neurological: Alert, Oriented, Normal Cognition #1 Interpretation EKG Date: 05/01/21 Rhythm: NSR Rate (Beats/Min): 89 Luckey: Other (Approaching left axis deviation) P-Wave: Present QRS: LBBB ST-T: Other (Appropriate disconcordant ST-T wave changes) QT: Prolonged Comparison: NA - No Prior EKG EKG Interpretation Comments: Abnormal EKG Course - Vital Signs Last Recorded V/S: Last Vital Signs Temp 36.6 C 05/01/21 06:46 Pulse 92 05/01/21 06:46 Resp 18 05/01/21 06:46 BP 155/79 H 05/01/21 06:46 Pulse Ox 94 L 05/01/21 06:46 - Orders/Labs/Meds Orders: Active Orders 24 hr Category Date Time Status EKG Documentation Completion [RC] STAT Care 05/01/21 06:46 Active Peripheral IV Care [RC] . DIRECTED Care 05/01/21 06:47 Active Apixaban [Eliquis] Med 05/01/21 21:00 Ordered 5 mg PO BID Aspirin Med 05/02/21 09:00 Active 81 mg PO DAILY DULoxetine [Cymbalta] Med 05/02/21 09:00 Ordered 30 mg PO DAILY Famotidine [Pepcid] Med 05/01/21 21:00 Ordered 20 mg PO BID Magnesium Hydroxide [Milk of Magnesia] Med 05/01/21 10:38 Ordered 30 ml PO BEDTIME PRN Metoprolol Succinate Med 05/01/21 21:00 Ordered 100 mg PO BEDTIME Simvastatin [Zocor] Med 05/01/21 21:00 Ordered 20 mg PO BEDTIME Sodium Chloride Med 05/01/21 21:00 Ordered 1 drop EYEBOTH BID Sodium Chloride 0.9% [Saline Flush] Med 05/01/21 06:47 Active 10 ml FLUSH ASDIRECTED PRN amLODIPine [Norvasc] Med 05/02/21 09:00 Pending 5 mg PO DAILY Peripheral IV Insertion Adult [OM.PC] Stat Oth 05/01/21 06:47 Ordered Medication Orders Acetaminophen (Acetaminophen 325 Mg Tab) 650 mg PO Q4H PRN PRN Reason: Pain (Mild 1-3)/fever Albuterol/Ipratropium (Albuterol/Ipratropium 3.0-0.5 Mg/3 Ml Neb Soln) 3 ml NEB Q4H PRN PRN Reason: Shortness Of Breath/wheezing Amlodipine Besylate (Amlodipine 5 Mg Tab) 5 mg PO DAILY [facility] Apixaban (Apixaban 5 Mg Tab) 5 mg PO BID MICHEAL Aspirin (Aspirin 81 Mg Tab.Chew) 81 mg PO DAILY [facility] Duloxetine HCl (Duloxetine 30 Mg Cap) 30 mg PO DAILY [facility] Famotidine (Famotidine 20 Mg Tab) 20 mg PO BID MIC[facility]AL Furosemide (Furosemide 20 Mg/2 Ml Vial) 20 mg IVPUSH BIDDIURETIC MICHEAL Magnesium Hydroxide (Magnesium Hydroxide 400 Mg/5 Ml Susp 30 Ml Cup) 30 ml PO BEDTIME PRN PRN Reason: Constipation Non-Formulary Medication (Metoprolol Succinate) 100 mg PO BEDTIME MICHEAL Non-Formulary Medication (Sodium Chloride) 1 drop EYEBOTH BID MIC[facility]AL Ondansetron HCl (Ondansetron 4 Mg Tab.Dis) 4 mg PO Q4H PRN PRN Reason: nausea, able to take PO Oxycodone HCl (Oxycodone 5 Mg Tab) 5 mg PO Q4H PRN PRN Reason: Pain (moderate 4-6) Simvastatin (Simvastatin 20 Mg Tab) 20 mg PO BEDTIME MICHEAL Sodium Chloride (Sodium Chloride 0.9% 10 Ml Syringe) 10 ml FLUSH ASDIRECTED PRN PRN Reason: Keep Vein Open Last Admin: 05/01/21 06:53 Dose: 10 ml Documented by: WICHO Temazepam (Temazepam 7.5 Mg Cap) 7.5 mg PO BEDTIME PRN PRN Reason: Sleep Labs: Laboratory Tests 05/01/21 05/01/21 05/01/21 Range/Units 07:07 07:07 07:07 WBC 10.22 H (3.98-10.04) K/mm3 RBC 2.98 L (3.98-5.22) M/mm3 Hgb 9.3 L D (11.2-15.7) gm/dl Hct 29.7 L (34.1-44.9) % MCV 99.7 H (79.4-94.8) fl MCH 31.2 (25.6-32.2) pg MCHC 31.3 L (32.2-35.5) g/dl RDW Std Deviation 50.7 H (36.4-46.3) fL Plt Count 449 H D (182-369) K/mm3 MPV 8.1 L (9.4-12.3) fl Neut % (Auto) 70.4 (34.0-71.1) % Lymph % (Auto) 19.2 L (19.3-51.7) % [place] % (Auto) 8.0 (4.7-12.5) % Eos % (Auto) 1.5 (0.7-5.8) Baso % (Auto) 0.2 (0.1-1.2) % Neut # (Auto) 7.20 H (1.56-6.13) K/mm3 Lymph # (Auto) 1.96 (1.18-3.74) K/mm3 [place] # (Auto) 0.82 H (0.24-0.36) K/mm3 Eos # (Auto) 0.15 (0.04-0.36) K/mm3 Baso # (Auto) 0.02 (0.01-0.08) K/mm3 Manual Slide Review Abnormal smear PT 11.8 (9.7-12.0) SECONDS INR 1.10 APTT 24.5 (21.7-31.4) SECONDS Sodium 145 (136-145) mEq/L Potassium 4.6 (3.5-5.1) mEq/L Chloride 107 (98-107) mEq/L Carbon Dioxide 26 (21-32) mEq/L Anion Gap 16.6 H (5-15) BUN 21 H (7-18) mg/dL Creatinine 1.2 H (0.55-1.02) mg/dL Est Cr Clr Drug Dosing TNP Estimated GFR (MDRD) 44 (>60) mL/min BUN/Creatinine Ratio 17.5 (14-18) Glucose 102 H (70-99) mg/dL Calcium 8.8 (8.5-10.1) mg/dL Magnesium 1.9 (1.8-2.4) mg/dL Total Bilirubin 0.5 (0.2-1.0) mg/dL AST 24 (15-37) U/L ALT 31 (14-59) U/L Alkaline Phosphatase 97 (46-116) U/L Troponin I 0.085 H* (0.00-0.056) ng/mL C-Reactive Protein 2.6 H* (<1.0) mg/dL NT-Pro-B Natriuret Pep (0-125) pg/mL Total Protein 6.3 L (6.4-8.2) g/dl Albumin 3.2 L (3.4-5.0) g/dl Globulin 3.1 gm/dL Albumin/Globulin Ratio 1.0 (1-2) Urine Color (Yellow) Urine Appearance (Clear) Urine pH (5.0-8.0) Ur Specific [place] (1.005-1.030) Urine Protein (Negative) Urine Glucose (UA) (Negative) Urine Ketones (Negative) Urine Occult Blood (Negative) Urine Nitrite (Negative) Urine Bilirubin (Negative) Urine Urobilinogen (0.2-1.0) Ur Leukocyte Esterase (Negative) Urine RBC (0-5) /hpf Urine WBC (0-5) /hpf Ur Epithelial Cells (0-5) /hpf Urine Bacteria (FEW) /hpf Urine Mucus (FEW) /hpf SARS-CoV-2 RNA (RADHA) (NEGATIVE) 05/01/21 05/01/21 05/01/21 Range/Units 07:07 08:10 10:35 WBC (3.98-10.04) K/mm3 RBC (3.98-5.22) M/mm3 Hgb (11.2-15.7) gm/dl Hct (34.1-44.9) % MCV (79.4-94.8) fl MCH (25.6-32.2) pg MCHC (32.2-35.5) g/dl RDW Std Deviation (36.4-46.3) fL Plt Count (182-369) K/mm3 MPV (9.4-12.3) fl Neut % (Auto) (34.0-71.1) % Lymph % (Auto) (19.3-51.7) % [place] % (Auto) (4.7-12.5) % Eos % (Auto) (0.7-5.8) Baso % (Auto) (0.1-1.2) % Neut # (Auto) (1.56-6.13) K/mm3 Lymph # (Auto) (1.18-3.74) K/mm3 [place] # (Auto) (0.24-0.36) K/mm3 Eos # (Auto) (0.04-0.36) K/mm3 Baso # (Auto) (0.01-0.08) K/mm3 Manual Slide Review PT (9.7-12.0) SECONDS INR APTT (21.7-31.4) SECONDS Sodium (136-145) mEq/L Potassium (3.5-5.1) mEq/L Chloride (98-107) mEq/L Carbon Dioxide (21-32) mEq/L Anion Gap (5-15) BUN (7-18) mg/dL Creatinine (0.55-1.02) mg/dL Est Cr Clr Drug Dosing Estimated GFR (MDRD) (>60) mL/min BUN/Creatinine Ratio (14-18) Glucose (70-99) mg/dL Calcium (8.5-10.1) mg/dL Magnesium (1.8-2.4) mg/dL Total Bilirubin (0.2-1.0) mg/dL AST (15-37) U/L ALT (14-59) U/L Alkaline Phosphatase (46-116) U/L Troponin I (0.00-0.056) ng/mL C-Reactive Protein (<1.0) mg/dL NT-Pro-B Natriuret Pep 4304 H (0-125) pg/mL Total Protein (6.4-8.2) g/dl Albumin (3.4-5.0) g/dl Globulin gm/dL Albumin/Globulin Ratio (1-2) Urine Color Light yellow (Yellow) Urine Appearance Clear (Clear) Urine pH 7.0 (5.0-8.0) Ur Specific [place] 1.020 (1.005-1.030) Urine Protein Negative (Negative) Urine Glucose (UA) Negative (Negative) Urine Ketones Negative (Negative) Urine Occult Blood Negative (Negative) Urine Nitrite Negative (Negative) Urine Bilirubin Negative (Negative) Urine Urobilinogen 0.2 (0.2-1.0) Ur Leukocyte Esterase Negative (Negative) Urine RBC 0-5 (0-5) /hpf Urine WBC Not seen (0-5) /hpf Ur Epithelial Cells 0-5 (0-5) /hpf Urine Bacteria Rare (FEW) /hpf Urine Mucus Not seen (FEW) /hpf SARS-CoV-2 RNA (RADHA) Negative (NEGATIVE) Meds: Medications Generic Name Dose Route Start Last Admin Trade Name Freq PRN Reason Stop Dose Admin Acetaminophen 650 mg 05/01/21 10:41 Acetaminophen 325 Mg Tab PO Q4H PRN Pain (Mild 1-3)/fever Albuterol/Ipratropium 3 ml 05/01/21 10:41 Albuterol/Ipratropium 3.0-0.5 Mg/3 Ml Neb Soln NEB Q4H PRN Shortness Of Breath/wheezing Amlodipine Besylate 5 mg 05/02/21 09:00 Amlodipine 5 Mg Tab PO DAILY [facility] Apixaban 5 mg 05/01/21 21:00 Apixaban 5 Mg Tab PO BID [facility] Aspirin 81 mg 05/02/21 09:00 Aspirin 81 Mg Tab.Chew PO DAILY [facility] Duloxetine HCl 30 mg 05/02/21 09:00 Duloxetine 30 Mg Cap PO DAILY [facility] Famotidine 20 mg 05/01/21 21:00 Famotidine 20 Mg Tab PO BID MICHEAL Furosemide 20 mg 05/01/21 14:00 Furosemide 20 Mg/2 Ml Vial IVPUSH BIDDIURETIC MICHEAL Magnesium Hydroxide 30 ml 05/01/21 10:38 Magnesium Hydroxide 400 Mg/5 Ml Susp 30 Ml Cup PO BEDTIME PRN Constipation Non-Formulary Medication 100 mg 05/01/21 21:00 Metoprolol Succinate PO BEDTIME MICHEAL Non-Formulary Medication 1 drop 05/01/21 21:00 Sodium Chloride EYEBOTH BID [facility] Ondansetron HCl 4 mg 05/01/21 10:41 Ondansetron 4 Mg Tab.Dis PO Q4H PRN nausea, able to take PO Oxycodone HCl 5 mg 05/01/21 10:41 Oxycodone 5 Mg Tab PO Q4H PRN Pain (moderate 4-6) Simvastatin 20 mg 05/01/21 21:00 Simvastatin 20 Mg Tab PO BEDTIME MIC[facility]AL Sodium Chloride 10 ml 05/01/21 06:47 05/01/21 06:53 Sodium Chloride 0.9% 10 Ml Syringe FLUSH 10 ml ASDIRECTED PRN Administration Keep Vein Open Temazepam 7.5 mg 05/01/21 10:41 Temazepam 7.5 Mg Cap PO BEDTIME PRN Sleep Discontinued Medications Generic Name Dose Route Start Last Admin Trade Name Freq PRN Reason Stop Dose Admin Furosemide 40 mg 05/01/21 07:18 05/01/21 07:49 Furosemide 40 Mg/4 Ml Vial IVPUSH 05/01/21 07:19 40 mg NOW ONE Administration - Re-Assessments/Exams Free Text/Narrative Re-Assessment/Exam: 05/01/21 09:[address] 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 The patient really isn't feeling much better at this time she is voiding more however. The patient's troponin was noted to be minimally elevated. As well as her proBNP. Chest x-ray shows bilateral effusions moderate on the left which is worse than the right. And a developing failure pattern. 05/01/21 10:09 Dr. Church, cardiothoracic surgeon is [facility] in [place] did get back to me and he thought diuretic use and consideration for repeat thoracentesis. Apparently the patient had about a liter of fluid taken off both lungs she had discomfort improvement with this but not really improvement from the shortness of breath according to the patient. I discussed situation with Dr. Espitia who will assume care. Departure - Departure Time of Disposition: 10:14 Sepsis Event Note (ED) - Focused Exam Vital Signs: Vital Signs Temp Pulse Resp BP Pulse Ox 05/01/21 06:46 36.6 C 92 18 155/79 H 94 L
[2021-05-01] MEDS ORDERED: Furosemide 40 MG/4 ML VIAL IVPUSH ONE (07:18)
--- NOTE | 2021-05-01 08:28 | CR ---
Chest: Portable view of the chest was obtained. Comparison: Prior chest x-ray of 06/25/20. Sternotomy is noted which is an interval change from prior exam. Prosthetic heart valve is seen as an interval change. Left-sided pleural effusion is noted. Mild bibasilar atelectasis is seen. Upper lungs are clear. Bony structures show nothing acute. Prior cholecystectomy is noted. Mild scattered degenerative change is noted within the spine. Impression: 1. Interval sternotomy and prosthetic heart valve. 2. Small left-sided pleural effusion which is possibly related to previous surgery. 3. Mild bibasilar atelectasis. Diagnostic code #2
[2021-05-01] MEDS ORDERED: Magnesium Hydroxide 400 MG/5 ML Susp 30 ML Cup PO PRN (10:38)
[2021-05-01] MEDS ORDERED: Temazepam 7.5 MG Cap PO PRN (10:41)
[2021-05-01] MEDS ORDERED: oxyCODONE 5 MG Tab PO PRN (10:41)
[2021-05-01] MEDS ORDERED: Albuterol/Ipratropium 3.0-0.5 MG/3 ML Neb Soln NEB PRN (10:41)
[2021-05-01] MEDS ORDERED: Ondansetron 4 MG Tab.DIS PO PRN (10:41)
--- NOTE | 2021-05-01 10:51 | PCM.HP.2 ---
H&P History of Present Illness - General Date of Service: 05/01/21 Admit Problem/Dx: Admission Diagnosis/Problem Admission Diagnosis/Problem Pleural effusion Source of Information: Patient History Limitations: Reports: No Limitations - History of Present Illness Initial Comments - Free Text/Narative: The patient is a 75-year-old lady who had been admitted to observation after concern for fluid overload and possible heart failure. The patient has a history of heart failure with aortic stenosis and previously had aortic valve replacement and was discharged from acute hospitalization yesterday. Her operation was approximately 10 days ago. Since that time the patient says that she has been having difficulty breathing. She also reports that she had a left- sided pleural effusion which was drained when she was in hospital. The patient also has had some weakness and fatigue and she reports having some mild pedal edema. The patient has denied any pain. She has had some nausea and vomiting associated with her previous hospitalization. The patient is currently taking Eliquis for anticoagulation after surgery. The patient also has been taking medication for hypertension. She has a history of depression and is on Cymbalta for this. No other complaints other than shortness of breath and fatigue. Onset of Symptoms: Reports: Gradual Duration of Symptoms: Reports: Day(s): Location: Reports: Chest Quality: Reports: Ache Severity: Moderate Improves with: Reports: Rest Worsens with: Reports: Breathing Context: Reports: Other (Open thoracic surgery to replace aortic valve.) Associated Symptoms: Reports: Nausea/Vomiting, Weakness - Related Data Allergies/Adverse Reactions: Allergies Allergy/AdvReac Type Severity Reaction Status Date / Time No Known Allergies Allergy Verified 02/17/21 08:05 Home Medications: Home Meds Metoprolol Succinate 100 mg PO BEDTIME 06/25/20 [History] Simvastatin 20 mg PO BEDTIME 06/25/20 [History] amLODIPine [Norvasc] 5 mg PO DAILY 06/25/20 [History] Alendronate [Fosamax] 1 spray NASBOTH ASDIRECTED 02/17/21 [History] DULoxetine [Cymbalta] 30 mg PO DAILY 02/17/21 [History] Famotidine 20 mg PO BID 02/17/21 [History] Fluticasone Furoate [Children's Flonase Sensimist] 1 spray MARTITA ASDIRECTED PRN 02/17/21 [History] hydrOXYzine HCL [hydrOXYzine] 50 mg PO ASDIRECTED PRN 02/17/21 [History] Apixaban [Eliquis] 5 mg PO BID 05/01/21 [History] Aspirin 81 mg PO DAILY 05/01/21 [History] Ferrous Sulfate 325 mg PO DAILY 05/01/21 [History] Magnesium Hydroxide [Milk of Magnesia] 30 ml PO BEDTIME PRN 05/01/21 [History] Sodium Chloride 1 drop EYEBOTH BID 05/01/21 [History] oxyCODONE HCl/Acetaminophen [Oxycodone-Acetaminophen 5-325] 1 tab PO Q6H PRN 05/01/21 [History] Past Medical History HEENT History: Reports: Allergic Rhinitis, Cataract, Impaired Vision Cardiovascular History: Reports: High Cholesterol, Hypertension Respiratory History: Reports: Sleep Apnea, Other (See Below) Other Respiratory History: seasonal allergies Gastrointestinal History: Reports: GERD, Other (See Below) Other Gastrointestinal History: elevated LFTs Genitourinary History: Reports: Other (See Below) Other Genitourinary History: chronic kidney disease stage 3, bacteruria [employer] History: Reports: Other OB/BYN History: breast lulmpeactomy and reduction Musculoskeletal History: Reports: Arthritis, Fibromyalgia, Osteoporosis Other Musculoskeletal History: hammertoe correction, partial left knee, left shoulder.bilat carpal tunnel Neurological History: Reports: None Psychiatric History: Reports: Anxiety, Depression, Other (See Below) Other Psychiatric History: daytime somnolence, alcohol abuse, bipolar. Endocrine/Metabolic History: Reports: Osteopenia Other Hematologic History: hypokalemia Immunologic History: Reports: None Oncologic (Cancer) History: Reports: None Dermatologic History: Reports: None - Past Surgical History Cardiovascular Surgical History: Reports: None, Valve Replacement (Open thoracic surgery to replace aortic valve 10 days ago) Respiratory Surgical History: Reports: None GI Surgical History: Reports: Appendectomy, Cholecystectomy Female Surgical History: Reports: Hysterectomy, Tubal Ligation, Other (See Below) Endocrine Surgical History: Reports: None Neurological Surgical History: Reports: None Musculoskeletal Surgical History: Reports: Carpal Tunnel, Knee Replacement Oncologic Surgical History: Reports: None Dermatological Surgical History: Reports: None Social & Family History - Family History Family Medical History: No Pertinent Family History - Tobacco Use Tobacco Use Status *Q: Never Tobacco User - Caffeine Use Caffeine Use: Reports: Coffee - Alcohol Use Alcohol Use History: No - Living Situation & Occupation Living situation: Reports: , with Spouse Occupation: Retired H&P Review of Systems - Review of Systems: Review Of Systems: See Below General: Reports: Malaise, Weakness, Fatigue HEENT: Reports: No Symptoms Pulmonary: Reports: Shortness of Breath, Pleuritic Chest Pain Cardiovascular: Reports: Chest Pain Gastrointestinal: Reports: No Symptoms Genitourinary: Reports: No Symptoms Musculoskeletal: Reports: No Symptoms Skin: Reports: No Symptoms Psychiatric: Reports: No Symptoms Neurological: Reports: No Symptoms Hematologic/Lymphatic: Reports: No Symptoms Immunologic: Reports: No Symptoms Exam - Exam Exam: See Below - Vital Signs Vital Signs: Last Vital Signs Temp 36.6 C 05/01/21 06:46 Pulse 92 05/01/21 06:46 Resp 18 05/01/21 06:46 BP 155/79 H 05/01/21 06:46 Pulse Ox 94 L 05/01/21 06:46 Weight: 79.379 kg - Exam Quality Assessment: DVT Prophylaxis. No: Supplemental Oxygen General: Alert, Oriented, Cooperative, Mild Distress HEENT: Conjunctiva Clear, EACs Clear, EOMI, Mucosa Moist & [place], PERRLA Neck: Supple, Trachea Midline Lungs: Decreased Breath Sounds (Predominantly left lower lobe.), Crackles Cardiovascular: Regular Rate, Regular Rhythm, Other (Areas of phlebitis at her right hand and area of central line placement right external jugular vein.) GI/Abdominal Exam: Normal Bowel Sounds, Soft, No Distention. No: Guarding, Rigid, Rebound (Female) Exam: Deferred Rectal (Female) Exam: Deferred Back Exam: Normal Inspection, Full Range of Motion Extremities: Normal Inspection, Pedal Edema Skin: Warm, Dry, Intact, Incision (Midline sternotomy healing.) Neurological: Cranial Nerves Intact, Strength Equal Bilateral, Normal Speech Neuro Extensive - Mental Status: Alert, Oriented x3, Normal Mood/Affect, Memory Intact Psychiatric: Alert, Normal Affect, Normal Mood - Patient Data Lab Results Last 24 hrs: Laboratory Results - last 24 hr 05/01/21 05/01/21 05/01/21 Range/Units 07:07 07:07 07:07 WBC 10.22 H (3.98-10.04) K/mm3 RBC 2.98 L (3.98-5.22) M/mm3 Hgb 9.3 L D (11.2-15.7) gm/dl Hct 29.7 L (34.1-44.9) % MCV 99.7 H (79.4-94.8) fl MCH 31.2 (25.6-32.2) pg MCHC 31.3 L (32.2-35.5) g/dl RDW Std Deviation 50.7 H (36.4-46.3) fL Plt Count 449 H D (182-369) K/mm3 MPV 8.1 L (9.4-12.3) fl Neut % (Auto) 70.4 (34.0-71.1) % Lymph % (Auto) 19.2 L (19.3-51.7) % [place] % (Auto) 8.0 (4.7-12.5) % Eos % (Auto) 1.5 (0.7-5.8) Baso % (Auto) 0.2 (0.1-1.2) % Neut # (Auto) 7.20 H (1.56-6.13) K/mm3 Lymph # (Auto) 1.96 (1.18-3.74) K/mm3 [place] # (Auto) 0.82 H (0.24-0.36) K/mm3 Eos # (Auto) 0.15 (0.04-0.36) K/mm3 Baso # (Auto) 0.02 (0.01-0.08) K/mm3 Manual Slide Review Abnormal smear PT 11.8 (9.7-12.0) SECONDS INR 1.10 APTT 24.5 (21.7-31.4) SECONDS Sodium 145 (136-145) mEq/L Potassium 4.6 (3.5-5.1) mEq/L Chloride 107 (98-107) mEq/L Carbon Dioxide 26 (21-32) mEq/L Anion Gap 16.6 H (5-15) BUN 21 H (7-18) mg/dL Creatinine 1.2 H (0.55-1.02) mg/dL Est Cr Clr Drug Dosing TNP Estimated GFR (MDRD) 44 (>60) mL/min BUN/Creatinine Ratio 17.5 (14-18) Glucose 102 H (70-99) mg/dL Calcium 8.8 (8.5-10.1) mg/dL Magnesium 1.9 (1.8-2.4) mg/dL Total Bilirubin 0.5 (0.2-1.0) mg/dL AST 24 (15-37) U/L ALT 31 (14-59) U/L Alkaline Phosphatase 97 (46-116) U/L Troponin I 0.085 H* (0.00-0.056) ng/mL C-Reactive Protein 2.6 H* (<1.0) mg/dL NT-Pro-B Natriuret Pep (0-125) pg/mL Total Protein 6.3 L (6.4-8.2) g/dl Albumin 3.2 L (3.4-5.0) g/dl Globulin 3.1 gm/dL Albumin/Globulin Ratio 1.0 (1-2) Urine Color (Yellow) Urine Appearance (Clear) Urine pH (5.0-8.0) Ur Specific [place] (1.005-1.030) Urine Protein (Negative) Urine Glucose (UA) (Negative) Urine Ketones (Negative) Urine Occult Blood (Negative) Urine Nitrite (Negative) Urine Bilirubin (Negative) Urine Urobilinogen (0.2-1.0) Ur Leukocyte Esterase (Negative) Urine RBC (0-5) /hpf Urine WBC (0-5) /hpf Ur Epithelial Cells (0-5) /hpf Urine Bacteria (FEW) /hpf Urine Mucus (FEW) /hpf 05/01/21 05/01/21 Range/Units 07:07 08:10 WBC (3.98-10.04) K/mm3 RBC (3.98-5.22) M/mm3 Hgb (11.2-15.7) gm/dl Hct (34.1-44.9) % MCV (79.4-94.8) fl MCH (25.6-32.2) pg MCHC (32.2-35.5) g/dl RDW Std Deviation (36.4-46.3) fL Plt Count (182-369) K/mm3 MPV (9.4-12.3) fl Neut % (Auto) (34.0-71.1) % Lymph % (Auto) (19.3-51.7) % [place] % (Auto) (4.7-12.5) % Eos % (Auto) (0.7-5.8) Baso % (Auto) (0.1-1.2) % Neut # (Auto) (1.56-6.13) K/mm3 Lymph # (Auto) (1.18-3.74) K/mm3 [place] # (Auto) (0.24-0.36) K/mm3 Eos # (Auto) (0.04-0.36) K/mm3 Baso # (Auto) (0.01-0.08) K/mm3 Manual Slide Review PT (9.7-12.0) SECONDS INR APTT (21.7-31.4) SECONDS Sodium (136-145) mEq/L Potassium (3.5-5.1) mEq/L Chloride (98-107) mEq/L Carbon Dioxide (21-32) mEq/L Anion Gap (5-15) BUN (7-18) mg/dL Creatinine (0.55-1.02) mg/dL Est Cr Clr Drug Dosing Estimated GFR (MDRD) (>60) mL/min BUN/Creatinine Ratio (14-18) Glucose (70-99) mg/dL Calcium (8.5-10.1) mg/dL Magnesium (1.8-2.4) mg/dL Total Bilirubin (0.2-1.0) mg/dL AST (15-37) U/L ALT (14-59) U/L Alkaline Phosphatase (46-116) U/L Troponin I (0.00-0.056) ng/mL C-Reactive Protein (<1.0) mg/dL NT-Pro-B Natriuret Pep 4304 H (0-125) pg/mL Total Protein (6.4-8.2) g/dl Albumin (3.4-5.0) g/dl Globulin gm/dL Albumin/Globulin Ratio (1-2) Urine Color Light yellow (Yellow) Urine Appearance Clear (Clear) Urine pH 7.0 (5.0-8.0) Ur Specific [place] 1.020 (1.005-1.030) Urine Protein Negative (Negative) Urine Glucose (UA) Negative (Negative) Urine Ketones Negative (Negative) Urine Occult Blood Negative (Negative) Urine Nitrite Negative (Negative) Urine Bilirubin Negative (Negative) Urine Urobilinogen 0.2 (0.2-1.0) Ur Leukocyte Esterase Negative (Negative) Urine RBC 0-5 (0-5) /hpf Urine WBC Not seen (0-5) /hpf Ur Epithelial Cells 0-5 (0-5) /hpf Urine Bacteria Rare (FEW) /hpf Urine Mucus Not seen (FEW) /hpf Result Diagrams: 05/01/21 07:07 05/01/21 07:07 Sepsis Event Note - Evaluation Sepsis Screening Result: No Definite Risk - Focused Exam Vital Signs: Vital Signs Temp Pulse Resp BP Pulse Ox 05/01/21 06:46 36.6 C 92 18 155/79 H 94 L *Q Meaningful Use (ADM) - VTE *Q VTE Pharmacological Contraindications *Q: Risk of Bleeding - Problem List (1) Postoperative heart failure following cardiac surgery SNOMED Code(s): 46731458 ICD Code: I97.130 - POSTPROCEDURAL HEART FAILURE FOLLOWING CARDIAC SURGERY Status: Acute Priority: High Current Visit: Yes (2) Anemia SNOMED Code(s): 562258960 ICD Code: D64.9 - ANEMIA, UNSPECIFIED Status: Chronic Priority: High Current Visit: Yes Qualifiers: Anemia type: due to chronic kidney disease Chronic kidney disease stage: stage 3 (moderate) Chronic kidney disease stage 3 subtype: stage 3b (GFR 30- 44) Qualified Code(s): N18.32 - Chronic kidney disease, stage 3b; D63.1 - Anemia in chronic kidney disease (3) CKD (chronic kidney disease) stage 3, GFR 30-59 ml/min SNOMED Code(s): 209651695 ICD Code: N18.3 - CHRONIC KIDNEY DISEASE, STAGE 3 (MODERATE) * DO NOT USE * Status: Chronic Priority: High Current Visit: Yes Qualifiers: Chronic kidney disease stage 3 subtype: stage 3b (GFR 30-44) Qualified Code(s): N18.32 - Chronic kidney disease, stage 3b Problem List Initiated/Reviewed/Updated: Yes Orders Last 24hrs: Active Orders 24 hr Category Date Time Status Patient Status [ADT] Routine ADT 05/01/21 10:41 Ordered Antiembolic Devices [RC] PER UNIT ROUTINE Care 05/01/21 10:45 Ordered Cardiac Monitoring [RC] CONTINUOUS Care 05/01/21 10:44 Ordered EKG Documentation Completion [RC] STAT Care 05/01/21 06:46 Active Oxygen Therapy [RC] PRN Care 05/01/21 10:41 Ordered Peripheral IV Care [RC] . DIRECTED Care 05/01/21 06:47 Active RT Aerosol Therapy [RC] ASDIRECTED Care 05/01/21 10:47 Ordered Up With Assistance [RC] ASDIRECTED Care 05/01/21 10:41 Ordered VTE/DVT Education [RC] PER UNIT ROUTINE Care 05/01/21 10:41 Ordered Vital Signs [RC] Q4H Care 05/01/21 10:41 Ordered OT Evaluation and Treatment [CONS] Routine Cons 05/01/21 10:41 Ordered PT Evaluation and Treatment [CONS] Routine Cons 05/01/21 10:41 Ordered Heart Healthy Diet [DIET] Diet 05/01/21 Lunch Ordered CBC WITH AUTO DIFF [HEME] AM Lab 05/02/21 05:11 Ordered COMPREHENSIVE METABOLIC PN,CMP [CHEM] AM Lab 05/02/21 05:11 Ordered CORONAVIRUS COVID-19 RADHA [MOLEC] Stat Lab 05/01/21 10:35 Ordered MAGNESIUM [CHEM] AM Lab 05/02/21 05:11 Ordered Acetaminophen [TylenoL] Med 05/01/21 10:41 Ordered 650 mg PO Q4H PRN Albuterol/Ipratropium [DuoNeb 3.0-0.5 MG/3 ML] Med 05/01/21 10:41 Ordered 3 ml NEB Q4H PRN Apixaban [Eliquis] Med 05/01/21 21:00 Ordered 5 mg PO BID Aspirin Med 05/02/21 09:00 Ordered 81 mg PO DAILY DULoxetine [Cymbalta] Med 05/02/21 09:00 Ordered 30 mg PO DAILY Famotidine [Pepcid] Med 05/01/21 21:00 Ordered 20 mg PO BID Furosemide [Lasix] Med 05/01/21 21:00 Ordered 20 mg IVPUSH BID Magnesium Hydroxide [Milk of Magnesia] Med 05/01/21 10:38 Ordered 30 ml PO BEDTIME PRN Metoprolol Succinate Med 05/01/21 21:00 Ordered 100 mg PO BEDTIME Ondansetron [Zofran ODT] Med 05/01/21 10:41 Ordered 4 mg PO Q4H PRN Simvastatin [Zocor] Med 05/01/21 21:00 Ordered 20 mg PO BEDTIME Sodium Chloride Med 05/01/21 21:00 Ordered 1 drop EYEBOTH BID Sodium Chloride 0.9% [Saline Flush] Med 05/01/21 06:47 Active 10 ml FLUSH ASDIRECTED PRN Temazepam [Restoril] Med 05/01/21 10:41 Ordered 7.5 mg PO BEDTIME PRN amLODIPine [Norvasc] Med 05/02/21 09:00 Ordered 5 mg PO DAILY oxyCODONE Med 05/01/21 10:41 Ordered 5 mg PO Q4H PRN Peripheral IV Insertion Adult [OM.PC] Stat Oth 05/01/21 06:47 Ordered Sequential Compression Device [OM.PC] Per Unit Routine Oth 05/01/21 10:44 Ordered VTE Pharmacological Contraindications [AST] Per Unit Oth 05/01/21 10:41 Ordered Routine Resuscitation Status Routine Resus Stat 05/01/21 10:41 Ordered Medication Orders Amlodipine Besylate (Amlodipine 5 Mg Tab) 5 mg PO DAILY MICHEAL Apixaban (Apixaban 5 Mg Tab) 5 mg PO BID MICHEAL Aspirin (Aspirin 81 Mg Tab.Chew) 81 mg PO DAILY MICHEAL Duloxetine HCl (Duloxetine 30 Mg Cap) 30 mg PO DAILY MICHEAL Famotidine (Famotidine 20 Mg Tab) 20 mg PO BID MICHEAL Magnesium Hydroxide (Magnesium Hydroxide 400 Mg/5 Ml Susp 30 Ml Cup) 30 ml PO BEDTIME PRN PRN Reason: Constipation Non-Formulary Medication (Metoprolol Succinate) 100 mg PO BEDTIME MICHEAL Non-Formulary Medication (Sodium Chloride) 1 drop EYEBOTH BID MICHEAL Simvastatin (Simvastatin 20 Mg Tab) 20 mg PO BEDTIME MICHEAL Sodium Chloride (Sodium Chloride 0.9% 10 Ml Syringe) 10 ml FLUSH ASDIRECTED PRN PRN Reason: Keep Vein Open Last Admin: 05/01/21 06:53 Dose: 10 ml Documented by: WICHO Assessment/Plan Comment:: The patient is a 75-year-old lady who had been admitted to observation for postoperative shortness of breath and possible congestive heart failure. The patient does not have a history of congestive heart failure. She will be admitted and gently diuresed. The patient will be kept on oxygen as necessary to keep her saturations around 92%. I have ordered Lasix 20 mg IV twice daily. A discussion was held with the cardiothoracic [facility] who suggested that the patient be admitted here and diuresis. Patient will also be kept on a heart healthy diet as tolerated. She does have a history of kidney disease and medications will be renally dosed. The patient's laboratory testing will be repeated and her renal function monitored closely. A troponin had been ordered for the emergency department which shows slight elevation and this is likely secondary to her recent cardiac surgery. Also the patient did not have a D-dimer tested as she has phlebitis and this would be elevated regardless. The patient also is anticoagulated with Eliquis therefore PE is excluded. The patient will also be kept on the Eliquis for DVT proph ylaxis and SCDs were ordered. Once patient has been able to breathe better she will likely be appropriate for discharge. Incentive spirometry has also been ordered. - Mortality Measure Prognosis:: Good
[2021-05-01] MEDS: Furosemide 20 MG/2 ML VIAL IVPUSH SCH (14:17)
[2021-05-01] MEDS ORDERED: hydrOXYzine HCl 50 MG Tab PO PRN (15:57)
[2021-05-01] MEDS: Apixaban 5 MG Tab **OWN MED PO SCH (19:59)
[2021-05-01] MEDS: METOPROLOL SUCCINATE 100 MG PO SCH (19:59)
[2021-05-01] MEDS: [UNRECOGNIZED DRUG - OTHER] EYEBOTH SCH (20:00)
[2021-05-01] MEDS: SODIUM CHLORIDE 5% EYEBOTH SCH (20:00)
[2021-05-01] MEDS: Simvastatin 20 MG Tab **OWN MED PO SCH (20:01)
[2021-05-01] MEDS ORDERED: Famotidine 20 MG Tab **OWN MED PO SCH (21:00)
[2021-05-01] MEDS: Acetaminophen 325 MG Tab PO PRN (23:17)
[2021-05-02] MEDS: Furosemide 20 MG/2 ML VIAL IVPUSH SCH ×2 (06:47→14:17)
--- NOTE | 2021-05-02 08:23 | PCM.PN ---
- General Info Date of Service: 05/02/21 Admission Dx/Problem (Free Text): Admission Diagnosis/Problem Admission Diagnosis/Problem Pleural effusion Subjective Update: The patient is a 75-year-old lady who had been admitted to observation. The patient has a history of heart failure with aortic stenosis and previously had aortic valve replacement and was discharged from acute hospitalization yesterday. Her operation was approximately 10 days ago. Since that time the patient says that she has been having difficulty breathing. The patient says that her breathing is improved today. She is denied any pain. The patient has been tolerating her diet. The patient has denied any other problems at the present time. Functional Status: Reports: Pain Controlled, Tolerating Diet - Review of Systems General: Reports: Weakness HEENT: Reports: No Symptoms Pulmonary: Reports: Shortness of Breath Cardiovascular: Reports: Chest Pain (11 days postop thoracotomy) Gastrointestinal: Reports: No Symptoms Genitourinary: Reports: No Symptoms Musculoskeletal: Reports: No Symptoms Skin: Reports: No Symptoms Neurological: Reports: No Symptoms Psychiatric: Reports: No Symptoms - Patient Data Vitals - Most Recent: Last Vital Signs Temp 36.7 C 05/02/21 07:33 Pulse 74 05/02/21 07:33 Resp 14 05/02/21 07:33 BP 130/89 05/02/21 07:33 Pulse Ox 95 05/02/21 07:33 Weight - Most Recent: 76.702 kg I&O - Last 24 Hours: Intake & Output 05/01/21 05/02/21 05/02/21 22:59 06:59 14:59 Intake Total 500 800 Output Total 600 Balance -100 800 Lab Results Last 24 Hours: Laboratory Results - last 24 hr 05/01/21 05/01/21 05/02/21 Range/Units 08:10 10:35 05:45 WBC 10.16 H (3.98-10.04) K/mm3 RBC 3.30 L (3.98-5.22) M/mm3 Hgb 10.2 L (11.2-15.7) gm/dl Hct 33.1 L (34.1-44.9) % MCV 100.3 H (79.4-94.8) fl MCH 30.9 (25.6-32.2) pg MCHC 30.8 L (32.2-35.5) g/dl RDW Std Deviation 57.7 H (36.4-46.3) fL Plt Count 453 H (182-369) K/mm3 MPV 8.4 L (9.4-12.3) fl Neut % (Auto) 62.4 (34.0-71.1) % Lymph % (Auto) 25.0 (19.3-51.7) % Gaines % (Auto) 8.9 (4.7-12.5) % Eos % (Auto) 3.3 (0.7-5.8) Baso % (Auto) 0.4 (0.1-1.2) % Neut # (Auto) 6.34 H (1.56-6.13) K/mm3 Lymph # (Auto) 2.54 (1.18-3.74) K/mm3 Gaines # (Auto) 0.90 H (0.24-0.36) K/mm3 Eos # (Auto) 0.34 (0.04-0.36) K/mm3 Baso # (Auto) 0.04 (0.01-0.08) K/mm3 Sodium (136-145) mEq/L Potassium (3.5-5.1) mEq/L Chloride (98-107) mEq/L Carbon Dioxide (21-32) mEq/L Anion Gap (5-15) BUN (7-18) mg/dL Creatinine (0.55-1.02) mg/dL Est Cr Clr Drug Dosing mL/min Estimated GFR (MDRD) (>60) mL/min BUN/Creatinine Ratio (14-18) Glucose (70-99) mg/dL Calcium (8.5-10.1) mg/dL Magnesium (1.8-2.4) mg/dL Total Bilirubin (0.2-1.0) mg/dL AST (15-37) U/L ALT (14-59) U/L Alkaline Phosphatase (46-116) U/L Total Protein (6.4-8.2) g/dl Albumin (3.4-5.0) g/dl Globulin gm/dL Albumin/Globulin Ratio (1-2) Urine RBC 0-5 (0-5) /hpf Urine WBC Not seen (0-5) /hpf Ur Epithelial Cells 0-5 (0-5) /hpf Urine Bacteria Rare (FEW) /hpf Urine Mucus Not seen (FEW) /hpf SARS-CoV-2 RNA (RADHA) Negative (NEGATIVE) 05/02/21 Range/Units 05:45 WBC (3.98-10.04) K/mm3 RBC (3.98-5.22) M/mm3 Hgb (11.2-15.7) gm/dl Hct (34.1-44.9) % MCV (79.4-94.8) fl MCH (25.6-32.2) pg MCHC (32.2-35.5) g/dl RDW Std Deviation (36.4-46.3) fL Plt Count (182-369) K/mm3 MPV (9.4-12.3) fl Neut % (Auto) (34.0-71.1) % Lymph % (Auto) (19.3-51.7) % Gaines % (Auto) (4.7-12.5) % Eos % (Auto) (0.7-5.8) Baso % (Auto) (0.1-1.2) % Neut # (Auto) (1.56-6.13) K/mm3 Lymph # (Auto) (1.18-3.74) K/mm3 Gaines # (Auto) (0.24-0.36) K/mm3 Eos # (Auto) (0.04-0.36) K/mm3 Baso # (Auto) (0.01-0.08) K/mm3 Sodium 146 H (136-145) mEq/L Potassium 3.8 (3.5-5.1) mEq/L Chloride 107 (98-107) mEq/L Carbon Dioxide 30 (21-32) mEq/L Anion Gap 12.8 (5-15) BUN 22 H (7-18) mg/dL Creatinine 1.5 H (0.55-1.02) mg/dL Est Cr Clr Drug Dosing 26.42 mL/min Estimated GFR (MDRD) 34 (>60) mL/min BUN/Creatinine Ratio 14.7 (14-18) Glucose 105 H (70-99) mg/dL Calcium 8.5 (8.5-10.1) mg/dL Magnesium 2.0 (1.8-2.4) mg/dL Total Bilirubin 0.6 (0.2-1.0) mg/dL AST 26 (15-37) U/L ALT 20 (14-59) U/L Alkaline Phosphatase 100 (46-116) U/L Total Protein 6.3 L (6.4-8.2) g/dl Albumin 3.1 L (3.4-5.0) g/dl Globulin 3.2 gm/dL Albumin/Globulin Ratio 1.0 (1-2) Urine RBC (0-5) /hpf Urine WBC (0-5) /hpf Ur Epithelial Cells (0-5) /hpf Urine Bacteria (FEW) /hpf Urine Mucus (FEW) /hpf SARS-CoV-2 RNA (RADHA) (NEGATIVE) Med Orders - Current: Current Medications Acetaminophen (Acetaminophen 325 Mg Tab) 650 mg PO Q4H PRN PRN Reason: Pain (Mild 1-3)/fever Last Admin: 05/01/21 23:17 Dose: 650 mg Documented by: Albuterol/Ipratropium (Albuterol/Ipratropium 3.0-0.5 Mg/3 Ml Neb Soln) 3 ml NEB Q4H PRN PRN Reason: Shortness Of Breath/wheezing Amlodipine Besylate (Amlodipine 5 Mg Tab) 5 mg PO DAILY [facility] Apixaban (Apixaban 5 Mg Tab Own Med) 5 mg PO BID [facility] Last Admin: 05/01/21 19:59 Dose: 5 mg Documented by: Aspirin (Aspirin 81 Mg Tab.Chew) 81 mg PO DAILY [facility] Famotidine (Famotidine 20 Mg Tab Own Med) 20 mg PO BEDTIME [facility] Furosemide (Furosemide 20 Mg/2 Ml Vial) 20 mg IVPUSH BIDDIURETIC [facility] Last Admin: 05/02/21 06:47 Dose: 20 mg Documented by: Hydroxyzine HCl (Hydroxyzine Hcl 50 Mg Tab) 50 mg PO Q8H PRN PRN Reason: Allergies Last Admin: 05/01/21 16:26 Dose: 50 mg Documented by: Magnesium Hydroxide (Magnesium Hydroxide 400 Mg/5 Ml Susp 30 Ml Cup) 30 ml PO BEDTIME PRN PRN Reason: Constipation Metoprolol Succinate 100 Mg Tab.Er.24h Own Med 0 mg PO BEDTIME [facility] Last Admin: 05/01/21 19:59 Dose: 100 mg Documented by: Sodium Chloride 5% Hypertonic Eye Drops Own Med 1 drop EYEBOTH BID [facility] Last Admin: 05/01/21 20:00 Dose: 1 drop Documented by: Ondansetron HCl (Ondansetron 4 Mg Tab.Dis) 4 mg PO Q4H PRN PRN Reason: nausea, able to take PO Oxycodone HCl (Oxycodone 5 Mg Tab) 5 mg PO Q4H PRN PRN Reason: Pain (moderate 4-6) Duloxetine (Cymbalta ) 60 Mg Capsule Own Med 0 each PO DAILY [facility] Simvastatin (Simvastatin 20 Mg Tab Own Med) 20 mg PO BEDTIME [facility] Last Admin: 05/01/21 20:01 Dose: 20 mg Documented by: Sodium Chloride (Sodium Chloride 0.9% 10 Ml Syringe) 10 ml FLUSH ASDIRECTED PRN PRN Reason: Keep Vein Open Last Admin: 05/01/21 06:53 Dose: 10 ml Documented by: Temazepam (Temazepam 7.5 Mg Cap) 7.5 mg PO BEDTIME PRN PRN Reason: Sleep Discontinued Medications Duloxetine HCl (Duloxetine 30 Mg Cap) 60 mg PO DAILY [facility] Famotidine (Famotidine 20 Mg Tab Own Med) 20 mg PO BID [facility] Last Admin: 05/01/21 20:00 Dose: 20 mg Documented by: Furosemide (Furosemide 40 Mg/4 Ml Vial) 40 mg IVPUSH NOW ONE Stop: 05/01/21 07:19 Last Admin: 05/01/21 07:49 Dose: 40 mg Documented by: - Exam Quality Assessment: DVT Prophylaxis (Currently on Eliquis). No: Supplemental Oxygen General: Alert, Oriented, Cooperative HEENT: Pupils Equal, Pupils Reactive, EOMI Neck: Supple, Trachea Midline Lungs: Clear to Auscultation, Normal Respiratory Effort, Other (Midline sternotomy incision healing) Cardiovascular: Regular Rate, Regular Rhythm GI/Abdominal Exam: Normal Bowel Sounds, Soft, Non-Tender, No Distention (Female) Exam: Deferred Back Exam: Normal Inspection, Full Range of Motion Extremities: Normal Inspection, No Pedal Edema Skin: Warm, Dry, Intact Wound/Incisions: Healing Well Neurological: No New Focal Deficit Psy/Mental Status: Alert, Normal Affect, Normal Mood - Patient Data Lab Results Last 24 hrs: Laboratory Results - last 24 hr 05/01/21 05/01/21 05/02/21 Range/Units 08:10 10:35 05:45 WBC 10.16 H (3.98-10.04) K/mm3 RBC 3.30 L (3.98-5.22) M/mm3 Hgb 10.2 L (11.2-15.7) gm/dl Hct 33.1 L (34.1-44.9) % MCV 100.3 H (79.4-94.8) fl MCH 30.9 (25.6-32.2) pg MCHC 30.8 L (32.2-35.5) g/dl RDW Std Deviation 57.7 H (36.4-46.3) fL Plt Count 453 H (182-369) K/mm3 MPV 8.4 L (9.4-12.3) fl Neut % (Auto) 62.4 (34.0-71.1) % Lymph % (Auto) 25.0 (19.3-51.7) % Gaines % (Auto) 8.9 (4.7-12.5) % Eos % (Auto) 3.3 (0.7-5.8) Baso % (Auto) 0.4 (0.1-1.2) % Neut # (Auto) 6.34 H (1.56-6.13) K/mm3 Lymph # (Auto) 2.54 (1.18-3.74) K/mm3 Gaines # (Auto) 0.90 H (0.24-0.36) K/mm3 Eos # (Auto) 0.34 (0.04-0.36) K/mm3 Baso # (Auto) 0.04 (0.01-0.08) K/mm3 Sodium (136-145) mEq/L Potassium (3.5-5.1) mEq/L Chloride (98-107) mEq/L Carbon Dioxide (21-32) mEq/L Anion Gap (5-15) BUN (7-18) mg/dL Creatinine (0.55-1.02) mg/dL Est Cr Clr Drug Dosing mL/min Estimated GFR (MDRD) (>60) mL/min BUN/Creatinine Ratio (14-18) Glucose (70-99) mg/dL Calcium (8.5-10.1) mg/dL Magnesium (1.8-2.4) mg/dL Total Bilirubin (0.2-1.0) mg/dL AST (15-37) U/L ALT (14-59) U/L Alkaline Phosphatase (46-116) U/L Total Protein (6.4-8.2) g/dl Albumin (3.4-5.0) g/dl Globulin gm/dL Albumin/Globulin Ratio (1-2) Urine RBC 0-5 (0-5) /hpf Urine WBC Not seen (0-5) /hpf Ur Epithelial Cells 0-5 (0-5) /hpf Urine Bacteria Rare (FEW) /hpf Urine Mucus Not seen (FEW) /hpf SARS-CoV-2 RNA (RADHA) Negative (NEGATIVE) 05/02/21 Range/Units 05:45 WBC (3.98-10.04) K/mm3 RBC (3.98-5.22) M/mm3 Hgb (11.2-15.7) gm/dl Hct (34.1-44.9) % MCV (79.4-94.8) fl MCH (25.6-32.2) pg MCHC (32.2-35.5) g/dl RDW Std Deviation (36.4-46.3) fL Plt Count (182-369) K/mm3 MPV (9.4-12.3) fl Neut % (Auto) (34.0-71.1) % Lymph % (Auto) (19.3-51.7) % Gaines % (Auto) (4.7-12.5) % Eos % (Auto) (0.7-5.8) Baso % (Auto) (0.1-1.2) % Neut # (Auto) (1.56-6.13) K/mm3 Lymph # (Auto) (1.18-3.74) K/mm3 Gaines # (Auto) (0.24-0.36) K/mm3 Eos # (Auto) (0.04-0.36) K/mm3 Baso # (Auto) (0.01-0.08) K/mm3 Sodium 146 H (136-145) mEq/L Potassium 3.8 (3.5-5.1) mEq/L Chloride 107 (98-107) mEq/L Carbon Dioxide 30 (21-32) mEq/L Anion Gap 12.8 (5-15) BUN 22 H (7-18) mg/dL Creatinine 1.5 H (0.55-1.02) mg/dL Est Cr Clr Drug Dosing 26.42 mL/min Estimated GFR (MDRD) 34 (>60) mL/min BUN/Creatinine Ratio 14.7 (14-18) Glucose 105 H (70-99) mg/dL Calcium 8.5 (8.5-10.1) mg/dL Magnesium 2.0 (1.8-2.4) mg/dL Total Bilirubin 0.6 (0.2-1.0) mg/dL AST 26 (15-37) U/L ALT 20 (14-59) U/L Alkaline Phosphatase 100 (46-116) U/L Total Protein 6.3 L (6.4-8.2) g/dl Albumin 3.1 L (3.4-5.0) g/dl Globulin 3.2 gm/dL Albumin/Globulin Ratio 1.0 (1-2) Urine RBC (0-5) /hpf Urine WBC (0-5) /hpf Ur Epithelial Cells (0-5) /hpf Urine Bacteria (FEW) /hpf Urine Mucus (FEW) /hpf SARS-CoV-2 RNA (RADHA) (NEGATIVE) Result Diagrams: 05/02/21 05:45 05/02/21 05:45 Sepsis Event Note - Evaluation Sepsis Screening Result: No Definite Risk - Focused Exam Vital Signs: Vital Signs Temp Pulse Resp BP Pulse Ox 05/02/21 07:33 36.7 C 74 14 130/89 95 05/02/21 05:39 36.8 C 73 18 116/61 95 05/01/21 23:15 37.3 C 91 18 135/62 94 L - Problem List & Annotations (1) Postoperative heart failure following cardiac surgery SNOMED Code(s): 77944737 Code(s): I97.130 - POSTPROCEDURAL HEART FAILURE FOLLOWING CARDIAC SURGERY Status: Acute Priority: High Current Visit: Yes (2) Anemia SNOMED Code(s): 227096612 Code(s): D64.9 - ANEMIA, UNSPECIFIED Status: Chronic Priority: High Current Visit: Yes Qualifiers: Anemia type: due to chronic kidney disease Chronic kidney disease stage: stage 3 (moderate) Chronic kidney disease stage 3 subtype: stage 3b (GFR 30- 44) Qualified Code(s): N18.32 - Chronic kidney disease, stage 3b; D63.1 - Anemia in chronic kidney disease (3) CKD (chronic kidney disease) stage 3, GFR 30-59 ml/min SNOMED Code(s): 629948761 Code(s): N18.3 - CHRONIC KIDNEY DISEASE, STAGE 3 (MODERATE) * DO NOT USE * Status: Chronic Priority: High Current Visit: Yes Qualifiers: Chronic kidney disease stage 3 subtype: stage 3b (GFR 30-44) Qualified Code(s): N18.32 - Chronic kidney disease, stage 3b - Problem List Review Problem List Initiated/Reviewed/Updated: Yes - My Orders Last 24 Hours: My Active Orders 05/01/21 10:38 Magnesium Hydroxide [Milk of Magnesia] 30 ml PO BEDTIME PRN 05/01/21 10:41 Patient Status [ADT] Routine Oxygen Therapy [RC] PRN Up With Assistance [RC] ASDIRECTED VTE/DVT Education [RC] PER UNIT ROUTINE Vital Signs [RC] Q4HR OT Evaluation and Treatment [CONS] Routine PT Evaluation and Treatment [CONS] Routine Acetaminophen [TylenoL] 650 mg PO Q4H PRN Albuterol/Ipratropium [DuoNeb 3.0-0.5 MG/3 ML] 3 ml NEB Q4H PRN Ondansetron [Zofran ODT] 4 mg PO Q4H PRN Temazepam [Restoril] 7.5 mg PO BEDTIME PRN oxyCODONE 5 mg PO Q4H PRN VTE Pharmacological Contraindications [AST] Per Unit Routine Resuscitation Status Routine 05/01/21 10:44 Cardiac Monitoring [RC] CONTINUOUS Sequential Compression Device [OM.PC] Per Unit Routine 05/01/21 10:45 Antiembolic Devices [RC] PER UNIT ROUTINE 05/01/21 10:47 RT Aerosol Therapy [RC] ASDIRECTED 05/01/21 Lunch Heart Healthy Diet [DIET] 05/01/21 14:00 Furosemide [Lasix] 20 mg IVPUSH BIDDIURETIC 05/01/21 15:57 hydrOXYzine HCL [Atarax] 50 mg PO Q8H PRN 05/01/21 21:00 Apixaban [Eliquis] 5 mg PO BID Metoprolol Succinate 0 mg PO BEDTIME Simvastatin [Zocor] 20 mg PO BEDTIME Sodium Chloride 1 drop EYEBOTH BID 05/02/21 09:00 Aspirin 81 mg PO DAILY Patient's Own Medication [Ptom] 0 each PO DAILY amLODIPine [Norvasc] 5 mg PO DAILY 05/02/21 21:00 Famotidine [Pepcid] 20 mg PO BEDTIME - Plan Plan:: The patient is a 75-year-old lady who had been admitted to observation for postoperative shortness of breath and possible congestive heart failure. The patient does not have a history of congestive heart failure. She will be admitted and gently diuresed. The patient will be kept on oxygen as necessary to keep her saturations around 92%. I have ordered Lasix 20 mg IV twice daily. A discussion was held with the cardiothoracic surgeon from the emergency department who suggested that the patient be admitted here and diuresis. Patient will also be kept on a heart healthy diet as tolerated. She does have a history of kidney disease and medications will be renally dosed. The patient's laboratory testing will be repeated and her renal function monitored closely. A troponin had been ordered for the emergency department which shows slight elevation and this is likely secondary to her recent cardiac surgery. Also the patient did not have a D-dimer tested as she has phlebitis and this would be elevated regardless. The patient also is anticoagulated with Eliquis therefore PE is excluded. The patient will also be kept on the Eliquis for DVT prophylaxis and SCDs were ordered. Once patient has been able to breathe better she will likely be appropriate for discharge. Incentive spirometry has also been ordered. 05/02/2021 The patient is a 75-year-old lady who is doing somewhat better today. She has been diuresed. I have ordered repeat laboratory studies for tomorrow. The patient also has anemia due to chronic kidney disease and if for hemoglobin drops below 7.0 g/dL will consider transfusion. The patient will be on heart healthy diet. PT OT will evaluate the patient. Patient will likely be appropriate for discharge with medication adjustment in 1 day.
[2021-05-02] MEDS: amLODIPine 5 MG Tab PO SCH (08:29)
[2021-05-02] MEDS: DULOXETINE 60 MG PO SCH (08:30)
[2021-05-02] MEDS: Apixaban 5 MG Tab **OWN MED PO SCH ×2 (08:30→21:27)
[2021-05-02] MEDS: Aspirin 81 MG Tab.Chew PO SCH (08:30)
[2021-05-02] MEDS: [UNRECOGNIZED DRUG - OTHER] EYEBOTH SCH ×2 (08:31→21:26)
[2021-05-02] MEDS: SODIUM CHLORIDE 5% EYEBOTH SCH ×2 (08:31→21:26)
[2021-05-02] MEDS ORDERED: DULoxetine 30 MG Cap PO SCH ×2 (09:00)
[2021-05-02] MEDS: Famotidine 20 MG Tab **OWN MED PO SCH (21:25)
[2021-05-02] MEDS: METOPROLOL SUCCINATE 100 MG PO SCH (21:26)
[2021-05-02] MEDS: Simvastatin 20 MG Tab **OWN MED PO SCH (21:27)
[2021-05-02] MEDS: Acetaminophen 325 MG Tab PO PRN (21:33)
[2021-05-03] MEDS: Acetaminophen 325 MG Tab PO PRN ×2 (04:18→12:39)
[2021-05-03] MEDS: Furosemide 20 MG/2 ML VIAL IVPUSH SCH ×2 (06:49→12:59)
[2021-05-03] MEDS: Aspirin 81 MG Tab.Chew PO SCH (08:29)
[2021-05-03] MEDS: amLODIPine 5 MG Tab PO SCH (08:29)
[2021-05-03] MEDS: Apixaban 5 MG Tab **OWN MED PO SCH ×2 (08:30→20:45)
[2021-05-03] MEDS: DULOXETINE 60 MG PO SCH (08:30)
[2021-05-03] MEDS: SODIUM CHLORIDE 5% EYEBOTH SCH ×2 (08:31→20:47)
[2021-05-03] MEDS: [UNRECOGNIZED DRUG - OTHER] EYEBOTH SCH ×2 (08:31→20:47)
--- NOTE | 2021-05-03 09:29 | PCM.DCSUM1 ---
Discharge Summary - Hospital Course Diagnosis: Stroke: No - Discharge Data Discharge Date: 05/04/21 Discharge Disposition: DC/Tfer to SNF 03 Condition: Fair - Referral to Home Health Primary Care Physician: Katie Mayorga NP - Discharge Diagnosis/Problem(s) (1) Postoperative heart failure following cardiac surgery SNOMED Code(s): 68773607 ICD Code: I97.130 - POSTPROCEDURAL HEART FAILURE FOLLOWING CARDIAC SURGERY Status: Acute Priority: High Current Visit: Yes (2) Anemia SNOMED Code(s): 624719745 ICD Code: D64.9 - ANEMIA, UNSPECIFIED Status: Chronic Priority: High Current Visit: Yes Qualifiers: Anemia type: due to chronic kidney disease Chronic kidney disease stage: stage 3 (moderate) Chronic kidney disease stage 3 subtype: stage 3b (GFR 30- 44) Qualified Code(s): N18.32 - Chronic kidney disease, stage 3b; D63.1 - Anemia in chronic kidney disease (3) CKD (chronic kidney disease) stage 3, GFR 30-59 ml/min SNOMED Code(s): 492097830 ICD Code: N18.3 - CHRONIC KIDNEY DISEASE, STAGE 3 (MODERATE) * DO NOT USE * Status: Chronic Priority: High Current Visit: Yes Qualifiers: Chronic kidney disease stage 3 subtype: stage 3b (GFR 30-44) Qualified Code(s): N18.32 - Chronic kidney disease, stage 3b (4) Physical deconditioning SNOMED Code(s): 06190638354260 ICD Code: R53.81 - OTHER MALAISE Status: Chronic Priority: High Current Visit: Yes - Patient Summary/Data Consults: Consultations 05/01/21 10:41 OT Evaluation and Treatment [CONS] Routine PT Evaluation and Treatment [CONS] Routine Hospital Course: The patient was retained 1 extra day in hospitalization due to correction facility not available. The patient is a 75-year-old lady who had been admitted initially due to fluid overload due to her thoracotomy with aortic valve replacement. The patient's operation was 10 days prior to presentation in the emergency department. She had been complaining of shortness of breath. She in fact had been discharged the day before presentation to the ER. Patient also reports that she had a left-sided pleural effusion for which was removed while she was in hospital. She has had some weakness and fatigue and was having some mild pedal edema. The patient had been admitted and was diuresed and tolerated this well. The patient had been diuresed of approximately 5 L of fluid overall. Her oxygen requirements had improved significantly. She had been on room air. Although she was still reports that she has some shortness of breath. The patient also had elevation of her troponin I at 0.085 this was thought to be due to her recent surgery. She also had elevation of her BNP at 4300 and this is improved. The patient also had been noted to be chronically anemic and this was monitored closely and she did not require blood transfusion. The patient was also noted to have chronic kidney disease and her medications have been renally dosed. Patient also had been placed on potassium 10 mEq daily in addition to furosemide 40 g p.o. daily. The patient continued to improve through the course of hospitalization to the point that she was able to ambulate. She was able to be off of oxygen. The patient also had been tolerating her diet. She has been recommended to continue with her regular diet as tolerated. She is also to have activity as tolerated at the correction facility. The patient should follow-up with her primary care physician for referral to pulmonology as well as an outpatient PFT. The patient also had been retained in a full resuscitative code. - Patient Instructions Diet: Usual Diet as Tolerated Activity: As Tolerated - Discharge Plan *PRESCRIPTION DRUG MONITORING PROGRAM REVIEWED*: No *COPY OF PRESCRIPTION DRUG MONITORING REPORT IN PATIENT LANCE: No Prescriptions/Med Rec: Furosemide 40 mg PO DAILY #30 tablet Potassium Citrate [Potassium Citrate ER] 10 meq PO DAILY #30 tablet.er Home Medications: Home Meds Metoprolol Succinate 100 mg PO DAILY 06/25/20 [History] Simvastatin 20 mg PO BEDTIME 06/25/20 [History] amLODIPine [Norvasc] 5 mg PO DAILY 06/25/20 [History] Alendronate [Fosamax] 70 mg PO WEEKLY 02/17/21 [History] DULoxetine [Cymbalta] 60 mg PO DAILY 02/17/21 [History] Famotidine 20 mg PO BID 02/17/21 [History] Fluticasone Furoate [Children's Flonase Sensimist] 1 spray M[place] DAILY 02/17/21 [History] hydrOXYzine HCL [hydrOXYzine] 50 mg PO ASDIRECTED PRN 02/17/21 [History] Apixaban [Eliquis] 5 mg PO BID 05/01/21 [History] Aspirin 81 mg PO DAILY 05/01/21 [History] Ferrous Sulfate 325 mg PO DAILY 05/01/21 [History] Magnesium Hydroxide [Milk of Magnesia] 30 ml PO BEDTIME PRN 05/01/21 [History] oxyCODONE HCl/Acetaminophen [Oxycodone-Acetaminophen 5-325] 1 tab PO Q8H PRN 05/01/21 [History] Furosemide 40 mg PO DAILY #30 tablet 05/03/21 [Rx] Potassium Citrate [Potassium Citrate ER] 10 meq PO DAILY #30 tablet.er 05/03/21 [Rx] Oxygen Therapy Mode: Room Air Patient Handouts: Shortness of Breath, Adult, [id number], Heart-Healthy Eating Plan, [id number], Weakness, [id number], Heart Failure Action Plan Forms: ED Department Discharge Referrals: Antione Lemus MD [Physician] - 05/23/21 10:00 am ([facility] in [place] & is central time ([place] time), please come 15 minutes prior to register.) Doyle Driscoll MD [Physician] - () - Discharge Summary/Plan Comment DC Time >30 min.: Yes - General Info Date of Service: 05/04/21 Admission Dx/Problem (Free Text: Admission Diagnosis/Problem Admission Diagnosis/Problem Pleural effusion, postoperative congestive heart failure, chronic kidney disease, physical deconditioning Subjective Update: The patient says that she is feeling much better today. She has not been on oxygen. She does feel weak. She is looking forward to strengthening prior to going home. Functional Status: Reports: Pain Controlled, Tolerating Diet - Review of Systems General: Reports: Weakness, Fatigue HEENT: Reports: No Symptoms Pulmonary: Reports: No Symptoms Cardiovascular: Reports: No Symptoms Gastrointestinal: Reports: No Symptoms Genitourinary: Reports: No Symptoms Musculoskeletal: Reports: No Symptoms Skin: Reports: No Symptoms Neurological: Reports: No Symptoms Psychiatric: Reports: No Symptoms - Patient Data Vitals - Most Recent: Last Vital Signs Temp 36.6 C 05/03/21 08:01 Pulse 79 05/03/21 08:01 Resp 20 05/03/21 08:01 BP 111/64 06/29/21 08:29 Pulse Ox 96 05/03/21 08:01 Weight - Most Recent: 75.659 kg I&O - Last 24 hours: Intake & Output 05/02/21 05/03/21 05/03/21 22:59 06:59 14:59 Intake Total 100 700 Output Total 1600 400 Balance -1500 300 Lab Results - Last 24 hrs: Laboratory Results - last 24 hr 05/03/21 05/03/21 05/03/21 Range/Units 05:45 05:45 05:45 WBC 9.77 (3.98-10.04) K/mm3 RBC 3.23 L (3.98-5.22) M/mm3 Hgb 10.1 L (11.2-15.7) gm/dl Hct 31.8 L (34.1-44.9) % MCV 98.5 H (79.4-94.8) fl MCH 31.3 (25.6-32.2) pg MCHC 31.8 L (32.2-35.5) g/dl RDW Std Deviation 58.5 H (36.4-46.3) fL Plt Count 439 H (182-369) K/mm3 MPV 8.5 L (9.4-12.3) fl Neut % (Auto) 66.5 (34.0-71.1) % Lymph % (Auto) 20.2 (19.3-51.7) % [place] % (Auto) 8.9 (4.7-12.5) % Eos % (Auto) 4.0 (0.7-5.8) Baso % (Auto) 0.4 (0.1-1.2) % Neut # (Auto) 6.50 H (1.56-6.13) K/mm3 Lymph # (Auto) 1.97 (1.18-3.74) K/mm3 [place] # (Auto) 0.87 H (0.24-0.36) K/mm3 Eos # (Auto) 0.39 H (0.04-0.36) K/mm3 Baso # (Auto) 0.04 (0.01-0.08) K/mm3 Sodium 143 (136-145) mEq/L Potassium 4.0 (3.5-5.1) mEq/L Chloride 105 (98-107) mEq/L Carbon Dioxide 27 (21-32) mEq/L Anion Gap 15.0 (5-15) BUN 24 H (7-18) mg/dL Creatinine 1.4 H (0.55-1.02) mg/dL Est Cr Clr Drug Dosing 28.31 mL/min Estimated GFR (MDRD) 37 (>60) mL/min BUN/Creatinine Ratio 17.1 (14-18) Glucose 108 H (70-99) mg/dL Calcium 8.1 L (8.5-10.1) mg/dL Magnesium 2.1 (1.8-2.4) mg/dL Total Bilirubin 0.5 (0.2-1.0) mg/dL AST 23 (15-37) U/L ALT 28 (14-59) U/L Alkaline Phosphatase 93 (46-116) U/L NT-Pro-B Natriuret Pep 2693 H (0-125) pg/mL Total Protein 6.1 L (6.4-8.2) g/dl Albumin 2.9 L (3.4-5.0) g/dl Globulin 3.2 gm/dL Albumin/Globulin Ratio 0.9 L (1-2) Med Orders - Current: Current Medications Acetaminophen (Acetaminophen 325 Mg Tab) 650 mg PO Q4H PRN PRN Reason: Pain (Mild 1-3)/fever Last Admin: 05/03/21 04:18 Dose: 650 mg Documented by: Albuterol/Ipratropium (Albuterol/Ipratropium 3.0-0.5 Mg/3 Ml Neb Soln) 3 ml NEB Q4H PRN PRN Reason: Shortness Of Breath/wheezing Amlodipine Besylate (Amlodipine 5 Mg Tab) 5 mg PO DAILY [facility] Last Admin: 05/03/21 08:29 Dose: 5 mg Documented by: Apixaban (Apixaban 5 Mg Tab Own Med) 5 mg PO BID [facility] Last Admin: 05/03/21 08:30 Dose: 5 mg Documented by: Aspirin (Aspirin 81 Mg Tab.Chew) 81 mg PO DAILY [facility] Last Admin: 05/03/21 08:29 Dose: 81 mg Documented by: Famotidine (Famotidine 20 Mg Tab Own Med) 20 mg PO BEDTIME [facility] Last Admin: 05/02/21 21:25 Dose: 20 mg Documented by: Furosemide (Furosemide 20 Mg/2 Ml Vial) 20 mg IVPUSH BIDDIURETIC [facility] Last Admin: 05/03/21 06:49 Dose: 20 mg Documented by: Hydroxyzine HCl (Hydroxyzine Hcl 50 Mg Tab) 50 mg PO Q8H PRN PRN Reason: Allergies Last Admin: 05/01/21 16:26 Dose: 50 mg Documented by: Magnesium Hydroxide (Magnesium Hydroxide 400 Mg/5 Ml Susp 30 Ml Cup) 30 ml PO BEDTIME PRN PRN Reason: Constipation Last Admin: 05/02/21 16:14 Dose: 30 ml Documented by: Metoprolol Succinate 100 Mg Tab.Er.24h Own Med 0 mg PO BEDTIME [facility] Last Admin: 05/02/21 21:26 Dose: 100 mg Documented by: Sodium Chloride 5% Hypertonic Eye Drops Own Med 1 drop EYEBOTH BID [facility] Last Admin: 05/03/21 08:31 Dose: 1 drop Documented by: Ondansetron HCl (Ondansetron 4 Mg Tab.Dis) 4 mg PO Q4H PRN PRN Reason: nausea, able to take PO Oxycodone HCl (Oxycodone 5 Mg Tab) 5 mg PO Q4H PRN PRN Reason: Pain (moderate 4-6) Duloxetine (Cymbalta ) 60 Mg Capsule Own Med 0 each PO DAILY [facility] Last Admin: 05/03/21 08:30 Dose: 1 each Documented by: Simvastatin (Simvastatin 20 Mg Tab Own Med) 20 mg PO BEDTIME [facility] Last Admin: 05/02/21 21:27 Dose: 20 mg Documented by: Sodium Chloride (Sodium Chloride 0.9% 10 Ml Syringe) 10 ml FLUSH ASDIRECTED PRN PRN Reason: Keep Vein Open Last Admin: 05/01/21 06:53 Dose: 10 ml Documented by: Temazepam (Temazepam 7.5 Mg Cap) 7.5 mg PO BEDTIME PRN PRN Reason: Sleep Discontinued Medications Duloxetine HCl (Duloxetine 30 Mg Cap) 60 mg PO DAILY [facility] Famotidine (Famotidine 20 Mg Tab Own Med) 20 mg PO BID [facility] Last Admin: 05/01/21 20:00 Dose: 20 mg Documented by: Furosemide (Furosemide 40 Mg/4 Ml Vial) 40 mg IVPUSH NOW ONE Stop: 05/01/21 07:19 Last Admin: 05/01/21 07:49 Dose: 40 mg Documented by: - Exam Quality Assessment: Reports: DVT Prophylaxis (On Eliquis currently postop for aortic valve replacement.). Denies: Supplemental Oxygen General: Reports: Alert, Oriented, Cooperative, No Acute Distress HEENT: Reports: Pupils Equal, Pupils Reactive, EOMI, Mucous Membr. Moist/[place] Neck: Reports: Supple, +2 Carotid Pulse wo Bruit Lungs: Reports: Clear to Auscultation, Normal Respiratory Effort Cardiovascular: Reports: Regular Rate, Regular Rhythm GI/Abdominal Exam: Normal Bowel Sounds, Soft, Non-Tender, No Distention (Female) Exam: Deferred Rectal (Female) Exam: Deferred Back Exam: Reports: Normal Inspection, Full Range of Motion Extremities: Normal Inspection, No Pedal Edema Skin: Reports: Warm, Dry, Intact Wound/Incisions: Reports: Healing Well (Midline sternotomy) Neurological: Reports: No New Focal Deficit Psy/Mental Status: Reports: Alert, Normal Affect, Normal Mood *Q Meaningful Use (DIS) - VTE *Q VTE Pharmacological Contraindications *Q: Risk of Bleeding
--- NOTE | 2021-05-03 13:13 | PCM.PN ---
- General Info Date of Service: 05/03/21 Admission Dx/Problem (Free Text): Admission Diagnosis/Problem Admission Diagnosis/Problem Pleural effusion, postoperative congestive heart failure, chronic kidney disease, physical deconditioning Subjective Update: The patient is a 75-year-old lady who had been admitted to acute hospitalization on May 01, 2021 due to heart failure associated with recent cardiac surgery. The patient has been retained 1 extra day due to placement not available. Today the patient says that she has been feeling better. She has been walking. She says that she still feels short of breath although she does not require oxygen. She has been tolerating her diet. The patient has denied pain although she has been complaining of right lower rib pain. Functional Status: Reports: Pain Controlled, Tolerating Diet - Review of Systems General: Reports: Weakness HEENT: Reports: No Symptoms Pulmonary: Reports: Shortness of Breath Cardiovascular: Reports: No Symptoms Gastrointestinal: Reports: No Symptoms Genitourinary: Reports: No Symptoms Musculoskeletal: Reports: No Symptoms Skin: Reports: No Symptoms Neurological: Reports: No Symptoms Psychiatric: Reports: No Symptoms - Patient Data Vitals - Most Recent: Last Vital Signs Temp 36.8 C 05/03/21 12:08 Pulse 79 05/03/21 12:08 Resp 20 05/03/21 12:08 BP 111/65 05/03/21 12:08 Pulse Ox 95 05/03/21 12:08 Weight - Most Recent: 75.659 kg I&O - Last 24 Hours: Intake & Output 05/02/21 05/03/21 05/03/21 22:59 06:59 14:59 Intake Total 100 700 440 Output Total 1600 400 Balance -1500 300 440 Lab Results Last 24 Hours: Laboratory Results - last 24 hr 05/03/21 05/03/21 05/03/21 Range/Units 05:45 05:45 05:45 WBC 9.77 (3.98-10.04) K/mm3 RBC 3.23 L (3.98-5.22) M/mm3 Hgb 10.1 L (11.2-15.7) gm/dl Hct 31.8 L (34.1-44.9) % MCV 98.5 H (79.4-94.8) fl MCH 31.3 (25.6-32.2) pg MCHC 31.8 L (32.2-35.5) g/dl RDW Std Deviation 58.5 H (36.4-46.3) fL Plt Count 439 H (182-369) K/mm3 MPV 8.5 L (9.4-12.3) fl Neut % (Auto) 66.5 (34.0-71.1) % Lymph % (Auto) 20.2 (19.3-51.7) % [place] % (Auto) 8.9 (4.7-12.5) % Eos % (Auto) 4.0 (0.7-5.8) Baso % (Auto) 0.4 (0.1-1.2) % Neut # (Auto) 6.50 H (1.56-6.13) K/mm3 Lymph # (Auto) 1.97 (1.18-3.74) K/mm3 [place] # (Auto) 0.87 H (0.24-0.36) K/mm3 Eos # (Auto) 0.39 H (0.04-0.36) K/mm3 Baso # (Auto) 0.04 (0.01-0.08) K/mm3 Sodium 143 (136-145) mEq/L Potassium 4.0 (3.5-5.1) mEq/L Chloride 105 (98-107) mEq/L Carbon Dioxide 27 (21-32) mEq/L Anion Gap 15.0 (5-15) BUN 24 H (7-18) mg/dL Creatinine 1.4 H (0.55-1.02) mg/dL Est Cr Clr Drug Dosing 28.31 mL/min Estimated GFR (MDRD) 37 (>60) mL/min BUN/Creatinine Ratio 17.1 (14-18) Glucose 108 H (70-99) mg/dL Calcium 8.1 L (8.5-10.1) mg/dL Magnesium 2.1 (1.8-2.4) mg/dL Total Bilirubin 0.5 (0.2-1.0) mg/dL AST 23 (15-37) U/L ALT 28 (14-59) U/L Alkaline Phosphatase 93 (46-116) U/L NT-Pro-B Natriuret Pep 2693 H (0-125) pg/mL Total Protein 6.1 L (6.4-8.2) g/dl Albumin 2.9 L (3.4-5.0) g/dl Globulin 3.2 gm/dL Albumin/Globulin Ratio 0.9 L (1-2) Med Orders - Current: Current Medications Acetaminophen (Acetaminophen 325 Mg Tab) 650 mg PO Q4H PRN PRN Reason: Pain (Mild 1-3)/fever Last Admin: 05/03/21 12:39 Dose: 650 mg Documented by: Albuterol/Ipratropium (Albuterol/Ipratropium 3.0-0.5 Mg/3 Ml Neb Soln) 3 ml NEB Q4H PRN PRN Reason: Shortness Of Breath/wheezing Amlodipine Besylate (Amlodipine 5 Mg Tab) 5 mg PO DAILY [facility] Last Admin: 05/03/21 08:29 Dose: 5 mg Documented by: Apixaban (Apixaban 5 Mg Tab Own Med) 5 mg PO BID [facility] Last Admin: 05/03/21 08:30 Dose: 5 mg Documented by: Aspirin (Aspirin 81 Mg Tab.Chew) 81 mg PO DAILY [facility] Last Admin: 05/03/21 08:29 Dose: 81 mg Documented by: Famotidine (Famotidine 20 Mg Tab Own Med) 20 mg PO BEDTIME [facility] Last Admin: 05/02/21 21:25 Dose: 20 mg Documented by: Furosemide (Furosemide 40 Mg Tab) 40 mg PO DAILY [facility] Hydroxyzine HCl (Hydroxyzine Hcl 50 Mg Tab) 50 mg PO Q8H PRN PRN Reason: Allergies Last Admin: 05/01/21 16:26 Dose: 50 mg Documented by: Magnesium Hydroxide (Magnesium Hydroxide 400 Mg/5 Ml Susp 30 Ml Cup) 30 ml PO BEDTIME PRN PRN Reason: Constipation Last Admin: 05/02/21 16:14 Dose: 30 ml Documented by: Metoprolol Succinate 100 Mg Tab.Er.24h Own Med 0 mg PO BEDTIME [facility] Last Admin: 05/02/21 21:26 Dose: 100 mg Documented by: Sodium Chloride 5% Hypertonic Eye Drops Own Med 1 drop EYEBOTH BID [facility] Last Admin: 05/03/21 08:31 Dose: 1 drop Documented by: Ondansetron HCl (Ondansetron 4 Mg Tab.Dis) 4 mg PO Q4H PRN PRN Reason: nausea, able to take PO Oxycodone HCl (Oxycodone 5 Mg Tab) 5 mg PO Q4H PRN PRN Reason: Pain (moderate 4-6) Duloxetine (Cymbalta ) 60 Mg Capsule Own Med 0 each PO DAILY [facility] Last Admin: 05/03/21 08:30 Dose: 1 each Documented by: Simvastatin (Simvastatin 20 Mg Tab Own Med) 20 mg PO BEDTIME [facility] Last Admin: 05/02/21 21:27 Dose: 20 mg Documented by: Sodium Chloride (Sodium Chloride 0.9% 10 Ml Syringe) 10 ml FLUSH ASDIRECTED PRN PRN Reason: Keep Vein Open Last Admin: 05/01/21 06:53 Dose: 10 ml Documented by: Temazepam (Temazepam 7.5 Mg Cap) 7.5 mg PO BEDTIME PRN PRN Reason: Sleep Discontinued Medications Duloxetine HCl (Duloxetine 30 Mg Cap) 60 mg PO DAILY [facility] Famotidine (Famotidine 20 Mg Tab Own Med) 20 mg PO BID [facility] Last Admin: 05/01/21 20:00 Dose: 20 mg Documented by: Furosemide (Furosemide 40 Mg/4 Ml Vial) 40 mg IVPUSH NOW ONE Stop: 05/01/21 07:19 Last Admin: 05/01/21 07:49 Dose: 40 mg Documented by: Furosemide (Furosemide 20 Mg/2 Ml Vial) 20 mg IVPUSH BIDDIURETIC [facility] Last Admin: 05/03/21 12:59 Dose: 20 mg Documented by: - Exam Quality Assessment: DVT Prophylaxis. No: Supplemental Oxygen General: Alert, Oriented, Cooperative, No Acute Distress HEENT: Pupils Equal, Pupils Reactive, EOMI, Mucous Membr. Moist/[place] Neck: Supple, Trachea Midline Lungs: Clear to Auscultation, Normal Respiratory Effort Cardiovascular: Regular Rate, Regular Rhythm GI/Abdominal Exam: Normal Bowel Sounds, Soft, Non-Tender, No Distention (Female) Exam: Deferred Back Exam: Normal Inspection, Full Range of Motion Extremities: Normal Inspection, Normal Range of Motion, No Pedal Edema Skin: Warm, Dry, Intact Wound/Incisions: Healing Well (Midline sternotomy) Neurological: No New Focal Deficit Psy/Mental Status: Alert, Normal Affect, Normal Mood - Patient Data Lab Results Last 24 hrs: Laboratory Results - last 24 hr 0605/03/21 05/03/21 Range/Units 05:45 05:45 05:45 WBC 9.77 (3.98-10.04) K/mm3 RBC 3.23 L (3.98-5.22) M/mm3 Hgb 10.1 L (11.2-15.7) gm/dl Hct 31.8 L (34.1-44.9) % MCV 98.5 H (79.4-94.8) fl MCH 31.3 (25.6-32.2) pg MCHC 31.8 L (32.2-35.5) g/dl RDW Std Deviation 58.5 H (36.4-46.3) fL Plt Count 439 H (182-369) K/mm3 MPV 8.5 L (9.4-12.3) fl Neut % (Auto) 66.5 (34.0-71.1) % Lymph % (Auto) 20.2 (19.3-51.7) % [place] % (Auto) 8.9 (4.7-12.5) % Eos % (Auto) 4.0 (0.7-5.8) Baso % (Auto) 0.4 (0.1-1.2) % Neut # (Auto) 6.50 H (1.56-6.13) K/mm3 Lymph # (Auto) 1.97 (1.18-3.74) K/mm3 [place] # (Auto) 0.87 H (0.24-0.36) K/mm3 Eos # (Auto) 0.39 H (0.04-0.36) K/mm3 Baso # (Auto) 0.04 (0.01-0.08) K/mm3 Sodium 143 (136-145) mEq/L Potassium 4.0 (3.5-5.1) mEq/L Chloride 105 (98-107) mEq/L Carbon Dioxide 27 (21-32) mEq/L Anion Gap 15.0 (5-15) BUN 24 H (7-18) mg/dL Creatinine 1.4 H (0.55-1.02) mg/dL Est Cr Clr Drug Dosing 28.31 mL/min Estimated GFR (MDRD) 37 (>60) mL/min BUN/Creatinine Ratio 17.1 (14-18) Glucose 108 H (70-99) mg/dL Calcium 8.1 L (8.5-10.1) mg/dL Magnesium 2.1 (1.8-2.4) mg/dL Total Bilirubin 0.5 (0.2-1.0) mg/dL AST 23 (15-37) U/L ALT 28 (14-59) U/L Alkaline Phosphatase 93 (46-116) U/L NT-Pro-B Natriuret Pep 2693 H (0-125) pg/mL Total Protein 6.1 L (6.4-8.2) g/dl Albumin 2.9 L (3.4-5.0) g/dl Globulin 3.2 gm/dL Albumin/Globulin Ratio 0.9 L (1-2) Result Diagrams: 05/03/21 05:45 05/03/21 05:45 Sepsis Event Note - Evaluation Sepsis Screening Result: No Definite Risk - Focused Exam Vital Signs: Vital Signs Temp Pulse Resp BP Pulse Ox 05/03/21 12:08 36.8 C 79 20 111/65 95 05/03/21 08:29 111/64 05/03/21 08:01 36.6 C 79 20 111/64 96 05/03/21 04:21 36.6 C 85 20 136/85 97 - Problem List & Annotations (1) Postoperative heart failure following cardiac surgery SNOMED Code(s): 56491786 Code(s): I97.130 - POSTPROCEDURAL HEART FAILURE FOLLOWING CARDIAC SURGERY Status: Acute Priority: High Current Visit: Yes (2) Anemia SNOMED Code(s): 211130800 Code(s): D64.9 - ANEMIA, UNSPECIFIED Status: Chronic Priority: High Current Visit: Yes Qualifiers: Anemia type: due to chronic kidney disease Chronic kidney disease stage: stage 3 (moderate) Chronic kidney disease stage 3 subtype: stage 3b (GFR 30- 44) Qualified Code(s): N18.32 - Chronic kidney disease, stage 3b; D63.1 - Anemia in chronic kidney disease (3) CKD (chronic kidney disease) stage 3, GFR 30-59 ml/min SNOMED Code(s): 256759882 Code(s): N18.3 - CHRONIC KIDNEY DISEASE, STAGE 3 (MODERATE) * DO NOT USE * Status: Chronic Priority: High Current Visit: Yes Qualifiers: Chronic kidney disease stage 3 subtype: stage 3b (GFR 30-44) Qualified Code(s): N18.32 - Chronic kidney disease, stage 3b (4) Physical deconditioning SNOMED Code(s): 39763966759100 Code(s): R53.81 - OTHER MALAISE Status: Chronic Priority: High Current Visit: Yes - Problem List Review Problem List Initiated/Reviewed/Updated: Yes - My Orders Last 24 Hours: My Active Orders 05/02/21 21:00 Famotidine [Pepcid] 20 mg PO BEDTIME 05/04/21 09:00 Furosemide [Lasix] 40 mg PO DAILY - Plan Plan:: The patient is a 75-year-old lady who had been admitted to observation for postoperative shortness of breath and possible congestive heart failure. The patient does not have a history of congestive heart failure. She will be admitted and gently diuresed. The patient will be kept on oxygen as necessary to keep her saturations around 92%. I have ordered Lasix 20 mg IV twice daily. A discussion was held with the cardiothoracic surgeon from the emergency department who suggested that the patient be admitted here and diuresis. Patient will also be kept on a heart healthy diet as tolerated. She does have a history of kidney disease and medications will be renally dosed. The patient's laboratory testing will be repeated and her renal function monitored closely. A troponin had been ordered for the emergency department which shows slight elevation and this is likely secondary to her recent cardiac surgery. Also the patient did not have a D-dimer tested as she has phlebitis and this would be elevated regardless. The patient also is anticoagulated with Eliquis therefore PE is excluded. The patient will also be kept on the Eliquis for DVT prophylaxis and SCDs were ordered. Once patient has been able to breathe better she will likely be appropriate for discharge. Incentive spirometry has also been ordered. 05/02/2021 The patient is a 75-year-old lady who is doing somewhat better today. She has been diuresed. I have ordered repeat laboratory studies for tomorrow. The patient also has anemia due to chronic kidney disease and if for hemoglobin drops below 7.0 g/dL will consider transfusion. The patient will be on heart healthy diet. PT OT will evaluate the patient. Patient will likely be appropriate for discharge with medication adjustment in 1 day. 05/03/2021 The patient is a 75-year-old lady who is doing better today. She is currently awaiting placement. The patient is 14 days postop open chest heart valve replacement. The patient also has a history of chronic kidney disease and all of her medications will be renally dosed. Physical therapy should continue at [facility] in order to return home. The patient does have anemia and repeat laboratory studies as well as chest x-ray has been ordered for the morning. If the patient's hemoglobin drops below 7.0 g/dL will consider transfusion. Otherwise the patient should be appropriate for discharge tomorrow once bed and transportation are available.
[2021-05-03] MEDS: Famotidine 20 MG Tab **OWN MED PO SCH (20:46)
[2021-05-03] MEDS: METOPROLOL SUCCINATE 100 MG PO SCH (20:46)
[2021-05-03] MEDS: Simvastatin 20 MG Tab **OWN MED PO SCH (20:47)
[2021-05-04] MEDS: Acetaminophen 325 MG Tab PO PRN (00:03)
--- NOTE | 2021-05-04 08:16 | CR ---
Chest: Portable view of the chest was obtained. Comparison: Prior chest x-ray of 05/01/21. Small left-sided pleural effusion is noted which is stable. Increased density is also noted presumably due to persisting atelectasis. Heart size and mediastinum are stable. Prior sternotomy is noted for prosthetic heart valve. No acute osseous abnormality is appreciated. Impression: 1. Small left-sided pleural effusion with bibasilar atelectasis. These findings are fairly stable from prior chest x-ray. 2. Prior sternotomy for prosthetic heart valve. Diagnostic code #2
[2021-05-04] MEDS: SODIUM CHLORIDE 5% EYEBOTH SCH (08:46)
[2021-05-04] MEDS: [UNRECOGNIZED DRUG - OTHER] EYEBOTH SCH (08:46)
[2021-05-04] MEDS: amLODIPine 5 MG Tab PO SCH (08:47)
[2021-05-04] MEDS: Aspirin 81 MG Tab.Chew PO SCH (08:48)
[2021-05-04] MEDS: Apixaban 5 MG Tab **OWN MED PO SCH (08:48)
[2021-05-04] MEDS: DULOXETINE 60 MG PO SCH (08:49)
[2021-05-04] MEDS ORDERED: Furosemide 40 MG Tab PO SCH (09:00)
== END 2021-05-04 11:05 ==
LOC: JD.ED 06:40 → JD.MS 10:38 → UNDOADMOB 10:38 → JD.MS 10:41
PROVIDERS: ADMIT Internal Medicine; ATTEND Internal Medicine
DX: I97.130 Postprocedural heart failure following cardiac surgery (principal); J90 Pleural effusion, not elsewhere classified; J98.11 Atelectasis; N18.32 Chronic kidney disease, stage 3b; D63.1 Anemia in chronic kidney disease; R53.81 Other malaise; M81.0 Age-related osteoporosis without current pathological fracture; E78.00 Pure hypercholesterolemia, unspecified; I10 Essential (primary) hypertension; G47.30 Sleep apnea, unspecified; Z20.822 Contact with and (suspected) exposure to COVID-19; Z79.899 Other long term (current) drug therapy; Z79.82 Long term (current) use of aspirin; Z95.828 Presence of other vascular implants and grafts
CPT/HCPCS: 36415; 71045; 71045-26; 80048; 80053; 81001; 83735; 83880; 84484; 85025; 85610; 85730; 86140; 93005; 93010; 96374; 96376; 97110-GP; 97162-GP; 99285; 99285-25; A9270-GY; G0378; J1940; U0002

== ENCOUNTER 2021-05-14 08:24 | Emergency (ER) | payer MEDICARE, BC ==
--- NOTE | 2021-05-14 08:42 | EDM.PDOC ---
ED HPI GENERAL MEDICAL PROBLEM - General Chief Complaint: Respiratory Problem Stated Complaint: SOB Time Seen by Provider: 05/14/21 08:36 Source of Information: Reports: Patient, RN Notes Reviewed - History of Present Illness INITIAL COMMENTS - FREE TEXT/NARRATIVE: 75 yr old female has been short of breath since valve, pt believes aortic replacement about 3 wks [address]. Had a CT 3 days ago that show bilat pleural effusion, had a CT angio yesterday that shows slight increase in pleural effusion. She has been more short of breath since last evening. Just discharged from [facility] yesterday. Does not have a script filled yet for her lasix so has not had that this AM as prescribed. Has taken all of her other meds. Hx of a fib, has been in that most of the time since her surgery. On blood thinner medication as well. - Related Data Allergies Allergy/AdvReac Type Severity Reaction Status Date / Time lorazepam [From Ativan] Allergy Severe Hallucinati Verified 05/14/21 08:38 ons Home Meds: Home Meds Metoprolol Succinate 100 mg PO BEDTIME 06/25/20 [History] Simvastatin 20 mg PO BEDTIME 06/25/20 [History] amLODIPine [Norvasc] 5 mg PO DAILY 06/25/20 [History] Alendronate [Fosamax] 70 mg PO BROWN 02/17/21 [History] DULoxetine [Cymbalta] 60 mg PO DAILY 02/17/21 [History] Fluticasone Furoate [Children's Flonase Sensimist] 1 spray MARTITA DAILY 02/17/21 [History] hydrOXYzine HCL [hydrOXYzine] 50 mg PO Q8H PRN 02/17/21 [History] Apixaban [Eliquis] 5 mg PO BID 05/01/21 [History] Aspirin 81 mg PO DAILY 05/01/21 [History] Ferrous Sulfate 325 mg PO DAILY 05/01/21 [History] Furosemide 40 mg PO DAILY #30 tablet 05/03/21 [Rx] Potassium Citrate [Potassium Citrate ER] 10 meq PO DAILY #30 tablet.er 05/03/21 [Rx] Past Medical History HEENT History: Reports: Allergic Rhinitis, Cataract, Impaired Vision, Retinal Detachment Cardiovascular History: Reports: High Cholesterol, Hypertension Respiratory History: Reports: Sleep Apnea, Other (See Below) Other Respiratory History: seasonal allergies Gastrointestinal History: Reports: GERD, Other (See Below) Other Gastrointestinal History: elevated LFTs Genitourinary History: Reports: Other (See Below) Other Genitourinary History: chronic kidney disease stage 3, bacteruria [employer]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 Endocrine/Metabolic History: Reports: Osteoporosis Other Hematologic History: hypokalemia Immunologic History: Reports: None Oncologic (Cancer) History: Reports: None Dermatologic History: Reports: None - Past Surgical History Cardiovascular Surgical History: Reports: None, Valve Replacement (Open thoracic surgery to replace aortic valve 10 days ago) Social & Family History - Family History Family Medical History: No Pertinent Family History - Caffeine Use Caffeine Use: Reports: Other Other Caffeine Use: Pt. reports drinking decaffeniated tea. - Living Situation & Occupation Living situation: Reports: , with Spouse Occupation: Retired ED ROS GENERAL - Review of Systems Review Of Systems: See Below Constitutional: Denies: Fever, Chills, Diaphoresis HEENT: Reports: No Symptoms Respiratory: Reports: Shortness of Breath. Denies: Wheezing, Cough Cardiovascular: Denies: Chest Pain GI/Abdominal: Denies: Abdominal Pain, Nausea, Vomiting Musculoskeletal: Reports: No Symptoms Skin: Reports: No Symptoms Neurological: Reports: No Symptoms ED EXAM, GENERAL - Physical Exam Exam: See Below General Appearance: Alert, Anxious Throat/Mouth: Normal Inspection Head: Atraumatic Neck: Supple, Other (No JVD) Respiratory/Chest: No Respiratory Distress. No: Rales, Rhonchi, Wheezing Cardiovascular: Irregularly Irregular GI/Abdominal: Soft, Non-Tender Back Exam: No: CVA Tenderness (L), CVA Tenderness (R) Extremities: Normal Inspection. No: Pedal Edema, Leg Pain, Increased Warmth, Redness Neurological: Alert, Oriented, No Motor/Sensory Deficits Skin Exam: Warm, Dry, Normal Color #1 Interpretation EKG Date: 05/14/21 Rhythm: A-Fib Rate (Beats/Min): 98 [place]: Normal P-Wave: Absent QRS: LBBB ST-T: Elevated Course - Vital Signs Last Recorded V/S: Last Vital Signs Temp 96.2 F L 05/14/21 08:34 Pulse 114 H 05/14/21 08:34 Resp 24 H 05/14/21 08:34 BP 139/101 H 05/14/21 08:34 Pulse Ox 99 05/14/21 08:34 - Orders/Labs/Meds Labs: Laboratory Tests 05/14/21 05/14/21 05/14/21 Range/Units 08:40 08:40 08:40 WBC 6.75 (3.98-10.04) K/mm3 RBC 3.59 L (3.98-5.22) M/mm3 Hgb 11.1 L (11.2-15.7) gm/dl Hct 35.0 (34.1-44.9) % MCV 97.5 H (79.4-94.8) fl MCH 30.9 (25.6-32.2) pg MCHC 31.7 L (32.2-35.5) g/dl RDW Std Deviation 48.7 H (36.4-46.3) fL Plt Count 408 H (182-369) K/mm3 MPV 8.9 L (9.4-12.3) fl Neut % (Auto) 64.3 (34.0-71.1) % Lymph % (Auto) 22.4 (19.3-51.7) % [place] % (Auto) 8.3 (4.7-12.5) % Eos % (Auto) 4.3 (0.7-5.8) Baso % (Auto) 0.6 (0.1-1.2) % Neut # (Auto) 4.34 (1.56-6.13) K/mm3 Lymph # (Auto) 1.51 (1.18-3.74) K/mm3 [place] # (Auto) 0.56 H (0.24-0.36) K/mm3 Eos # (Auto) 0.29 (0.04-0.36) K/mm3 Baso # (Auto) 0.04 (0.01-0.08) K/mm3 Sodium 144 (136-145) mEq/L Potassium 3.7 (3.5-5.1) mEq/L Chloride 106 (98-107) mEq/L Carbon Dioxide 25 (21-32) mEq/L Anion Gap 16.7 H (5-15) BUN 23 H (7-18) mg/dL Creatinine 1.4 H (0.55-1.02) mg/dL Est Cr Clr Drug Dosing 28.31 mL/min Estimated GFR (MDRD) 37 (>60) mL/min BUN/Creatinine Ratio 16.4 (14-18) Glucose 121 H (70-99) mg/dL Calcium 8.8 (8.5-10.1) mg/dL Total Bilirubin 0.3 (0.2-1.0) mg/dL AST 31 (15-37) U/L ALT 22 (14-59) U/L Alkaline Phosphatase 108 (46-116) U/L NT-Pro-B Natriuret Pep 5940 H (0-125) pg/mL Total Protein 6.7 (6.4-8.2) g/dl Albumin 3.4 (3.4-5.0) g/dl Globulin 3.3 gm/dL Albumin/Globulin Ratio 1.0 (1-2) Meds: Medications Discontinued Medications Generic Name Dose Route Start Last Admin Trade Name Freq PRN Reason Stop Dose Admin Furosemide 40 mg 05/14/21 09:21 05/14/21 09:34 Furosemide 40 Mg Tab PO 05/14/21 09:22 40 mg ONETIME ONE Administration - Re-Assessments/Exams Free Text/Narrative Re-Assessment/Exam: 05/14/21 14:11 CXR shows minimal bilat very small pleural effusions, Heart size is normal, no other apparent findings. See Radiology report for details. Labs relatively OK, Creat. 1.4. Will have her increase her lasix to an extra 20 mg q afternoon in addition to her 40 mg AM dosage for now. Discharge instr. as documented. Departure - Departure Time of Disposition: 12:08 Disposition: Home, Self-Care 01 Condition: Fair Clinical Impression: Dyspnea Qualifiers: Dyspnea type: dyspnea on exertion Qualified Code(s): R06.00 - Dyspnea, unspecified Congestive heart failure Qualifiers: Heart failure type: unspecified Heart failure chronicity: acute on chronic Qualified Code(s): I50.9 - Heart failure, unspecified - Discharge Information Instructions: Shortness of Breath, Adult Referrals: Katie Mayorga NP [Primary Care Provider] - Forms: ED Department Discharge Additional Instructions: increase your furosemide or lasix from 40 mg q AM to 40 mg Q AM plus and extra 20 mg around 2:00 each afternoon until otherwise directed. See Angie this next week in 3 to 4 days for recheck. See your Methods And Procedures Analyst and Hotel Clerk as planned. Return to ED as needed if symptoms worsening in any way. Sepsis Event Note (ED) - Evaluation Sepsis Screening Result: No Definite Risk - Focused Exam Vital Signs: Vital Signs Temp Pulse Resp BP Pulse Ox 05/14/21 08:34 96.2 F L 114 H 24 H 139/101 H 99
[2021-05-14] MEDS ORDERED: Furosemide 40 MG Tab PO ONE (09:21)
--- NOTE | 2021-05-14 10:35 | CR ---
Chest: PA and lateral views of the chest were obtained. Comparison: Prior chest x-ray 05/04/21. Minimal pleural effusions are noted bilaterally. Slight density is noted with the left lung base most likely representing atelectasis. Lungs otherwise are clear. Heart size and mediastinum are normal. Upper mediastinum is normal. Scattered disc space narrowing is noted within the spine with scattered end plate spurring. Prior sternotomy and prosthetic heart valve is seen. Surgical clips are noted within the upper right abdomen. Impression: 1. Minimal bilateral pleural effusions. 2. Probable atelectasis within the left lung base. 3. Other findings as noted above which are felt to be incidental. Diagnostic code #2
== END 2021-05-14 12:30 | disposition home or self-care (01) ==
LOC: JD.ED 08:24
DX: I13.0 Hypertensive heart and chronic kidney disease with heart failure and stage 1 through stage 4 chronic kidney disease, or unspecified chronic kidney disease (principal); N18.30 Chronic kidney disease, stage 3 unspecified; I50.9 Heart failure, unspecified; E78.00 Pure hypercholesterolemia, unspecified; M19.90 Unspecified osteoarthritis, unspecified site; I44.7 Left bundle-branch block, unspecified; Z88.8 Allergy status to other drugs, medicaments and biological substances; Z79.01 Long term (current) use of anticoagulants; Z79.82 Long term (current) use of aspirin; Z79.899 Other long term (current) drug therapy
CPT/HCPCS: 36415; 71046; 80053; 83880; 85025; 93005; 99285; A9270; 93010; 99284

== ENCOUNTER 2021-09-21 11:03 | Emergency (ER) | payer MEDICARE, BC ==
--- NOTE | 2021-09-21 12:29 | CR ---
Chest: Portable view of the chest was obtained. Comparison: Prior chest x-ray of 05/14/21. Density within the left lung base shows improvement from prior exam. Minimal linear density remains which most likely represents slight scarring. Lungs otherwise are clear. Prior sternotomy is noted. Scoliosis is noted within the spine. Heart size and mediastinum are within normal limits. Impression: 1. Notes as described above. 2. Nothing acute is seen on portable chest x-ray. Diagnostic code #2
--- NOTE | 2021-09-21 12:50 | EDM.PDOC ---
ED HPI GENERAL MEDICAL PROBLEM - General Chief Complaint: General Stated Complaint: DIZZY NAUSEA WEAK Time Seen by Provider: 09/21/21 11:46 Source of Information: Reports: Patient History Limitations: Reports: No Limitations - History of Present Illness INITIAL COMMENTS - FREE TEXT/NARRATIVE: 75-year-old female presents the emergency department today with complaints of dizziness and weakness that started 3 days ago. Patient states that approximately 6 days ago her electric refrigerator preparer, Dr. Stein, started her on metolazone. She states she has lost 7 pounds in 3 days however she became weak, dizzy and did have a near syncopal episode approximately 3 days ago. She states that last time she felt like this she was hospitalized due to hypokalemia. She states that she has developed some chest discomfort and shortness of breath this morning. She states she was resting and laying down when this occurred. She does not have any radiation to her shoulder or jaw or arm. She also tells me she does have a significant history of anxiety so she questions whether or not that is what is causing this. She denies any recent fever, chills, vomiting. States she has been nauseated today. States she had one episode of diarrhea this morning. States she has had her Covid vaccines as well as her booster which she received on August 30, 2021. - Related Data Allergies Allergy/AdvReac Type Severity Reaction Status Date / Time lorazepam [From Ativan] Allergy Severe Hallucinati Verified 09/21/21 11:48 ons Home Meds: Home Meds Alendronate [Fosamax] 70 mg PO WEEKLY 09/21/21 [History] Amoxicillin 2,000 mg PO ONETIME PRN 09/21/21 [History] Aspirin [Aspirin EC] 81 mg PO DAILY 09/21/21 [History] Cefdinir [Omnicef] 300 mg PO BID #9 cap 09/21/21 [Rx] Clopidogrel [Plavix] 75 mg PO DAILY 09/21/21 [History] DULoxetine [Cymbalta] 60 mg PO DAILY 09/21/21 [History] Famotidine 20 mg PO BID 09/21/21 [History] Fluticasone Propionate [Flonase] 2 spray NASBOTH DAILY 09/21/21 [History] Furosemide [Lasix] 40 mg PO BID 09/21/21 [History] Metoprolol Succinate 100 mg PO DAILY 09/21/21 [History] Potassium Chloride 40 meq PO DAILY 09/21/21 [History] Simvastatin [Zocor] 20 mg PO BEDTIME 09/21/21 [History] amLODIPine [Norvasc] 5 mg PO DAILY 09/21/21 [History] hydrOXYzine HCL [Atarax] 50 mg PO DAILY PRN 09/21/21 [History] metOLazone [Metolazone] 5 mg PO DAILY 09/21/21 [History] Past Medical History HEENT History: Reports: Allergic Rhinitis, Cataract, Impaired Vision, Retinal Detachment Cardiovascular History: Reports: Afib, High Cholesterol, Hypertension Respiratory History: Reports: Sleep Apnea, Other (See Below) Other Respiratory History: seasonal allergies Gastrointestinal History: Reports: GERD, Other (See Below) Other Gastrointestinal History: elevated LFTs Genitourinary History: Reports: Renal Disease Other Genitourinary History: chronic kidney disease stage 3, bacteruria UPHOLSTERY PARTS SORTER History: Reports: Other UPHOLSTERY PARTS SORTER History: breast lulmpeactomy and reduction Musculoskeletal History: Reports: Arthritis, Fibromyalgia, Osteoporosis Other Musculoskeletal History: hammertoe correction, full left knee, left shoulder, bilat carpal tunnel surgery Neurological History: Reports: None Psychiatric History: Reports: Anxiety, Depression Other Psychiatric History: daytime somnolence, alcohol abuse, bipolar. Endocrine/Metabolic History: Reports: Osteoporosis Other Hematologic History: hypokalemia Immunologic History: Reports: None Oncologic (Cancer) History: Reports: None Dermatologic History: Reports: None - Past Surgical History Head Surgeries/Procedures: Reports: None HEENT Surgical History: Reports: Cataract Surgery, Retinal Cardiovascular Surgical History: Reports: None, Valve Replacement Other Cardiovascular Surgeries/Procedures: april 2021 - valve replacement Respiratory Surgical History: Reports: Thoracentesis GI Surgical History: Reports: Appendectomy, Cholecystectomy Female Surgical History: Reports: Breast Reduction, Hysterectomy, Tubal Ligation Other Female Surgeries/Procedures: Pt. reports lumpectomy and breast reduction. Endocrine Surgical History: Reports: None Neurological Surgical History: Reports: None Musculoskeletal Surgical History: Reports: Carpal Tunnel, Knee Replacement, Shoulder Replacement Oncologic Surgical History: Reports: Lumpectomy Dermatological Surgical History: Reports: None Social & Family History - Family History Family Medical History: No Pertinent Family History - Tobacco Use Tobacco Use Status *Q: Never Tobacco User - Caffeine Use Caffeine Use: Reports: Other Other Caffeine Use: Pt. reports drinking decaffeniated tea. - Living Situation & Occupation Living situation: Reports: , with Spouse Occupation: Retired ED ROS GENERAL - Review of Systems Review Of Systems: Comprehensive ROS is negative, except as noted in HPI. ED EXAM, GENERAL - Physical Exam Exam: See Below Exam Limited By: No Limitations General Appearance: Alert, WD/WN, No Apparent Distress, Anxious Ears: Normal External Exam, Hearing Grossly Normal Nose: Normal Inspection Throat/Mouth: Normal Inspection, Normal Lips, Normal Voice, No Airway Compromise Head: Atraumatic Neck: Normal Inspection, Supple Respiratory/Chest: No Respiratory Distress, Lungs Clear, Normal Breath Sounds, No Accessory Muscle Use, Chest Non-Tender Cardiovascular: Normal Peripheral Pulses, Regular Rate, Rhythm, No Edema, No Murmur Peripheral Pulses: 2+: Radial (L), Radial (R) GI/Abdominal: Normal Bowel Sounds, Soft, Non-Tender, No Distention (Female) Exam: Deferred Rectal (Female) Exam: Deferred Back Exam: Normal Inspection, Full Range of Motion Extremities: Normal Inspection, Normal Range of Motion, Non-Tender, No Pedal Edema, Normal Capillary Refill Neurological: Alert, Oriented, Normal Cognition Psychiatric: Normal Affect, Normal Mood Skin Exam: Warm, Dry, Intact, Normal Color, No Rash Lymphatic: No Adenopathy #1 Interpretation EKG Date: 09/21/21 Time: 13:14 Rhythm: NSR Rate (Beats/Min): 67 E[place]chs: Normal P-Wave: Present QRS: Normal ST-T: Normal QT: Normal EKG Interpretation Comments: Per Dr. Velasco interpretation: Sinus rhythm at 67 bpm; left bundle branch block Course - Vital Signs Text/Narrative:: As stated above, patient presents with increased weakness and dizziness that started approximately 3 days ago. She does have a significant cardiac history and sees Dr. Stein for cardiology services at [facility] in [place]. Physical exam is essentially unremarkable. Patient is hemodynamically stable with O2 saturations at 99%. She is afebrile. I do not appreciate any edema noted to the bilateral lower extremities. We will obtain an EKG, portable chest x-ray and lab studies to include a CBC, CMP, magnesium, troponin and a proBNP. Last Recorded V/S: Last Vital Signs Temp 98.5 F 09/21/21 11:46 Pulse 68 11/17/21 11:46 Resp 16 09/21/21 11:46 BP 126/98 H 09/21/21 11:46 Pulse Ox 98 09/21/21 11:46 - Orders/Labs/Meds Orders: Active Orders 24 hr Category Date Time Status CULTURE URINE [MREF] Stat Lab 09/21/21 13:55 Received Sodium Chloride 0.9% [Normal Saline] 1,000 ml Med 09/21/21 13:30 Active IV ASDIRECTED Sodium Chloride 0.9% [Saline Flush] Med 09/21/21 11:58 Active 10 ml FLUSH ASDIRECTED PRN Saline Lock Insert [OM.PC] Stat Oth 09/21/21 11:58 Ordered Medication Orders Sodium Chloride (Normal Saline) 1,000 mls @ 250 mls/hr IV ASDIRECTED MICHEAL Last Admin: 09/21/21 14:09 Dose: 250 mls/hr Documented by: WICHO Sodium Chloride (Sodium Chloride 0.9% 10 Ml Syringe) 10 ml FLUSH ASDIRECTED PRN PRN Reason: Keep Vein Open Last Admin: 09/21/21 14:47 Dose: 10 ml Documented by: Admin: 09/21/21 14:09 Dose: 10 ml Documented by: WICHO Labs: Laboratory Tests 09/21/21 09/21/21 09/21/21 Range/Units 12:38 12:38 12:38 WBC 6.14 (3.98-10.04) K/mm3 RBC 5.69 H (3.98-5.22) M/mm3 Hgb 14.7 D (11.2-15.7) gm/dl Hct 45.2 H (34.1-44.9) % MCV 79.4 D (79.4-94.8) fl MCH 25.8 (25.6-32.2) pg MCHC 32.5 (32.2-35.5) g/dl RDW Std Deviation 49.2 H (36.4-46.3) fL Plt Count 337 (182-369) K/mm3 MPV 9.7 (9.4-12.3) fl Neut % (Auto) 59.7 (34.0-71.1) % Lymph % (Auto) 26.4 (19.3-51.7) % [place] % (Auto) 11.7 (4.7-12.5) % Eos % (Auto) 1.3 (0.7-5.8) Baso % (Auto) 0.7 (0.1-1.2) % Neut # (Auto) 3.67 (1.56-6.13) K/mm3 Lymph # (Auto) 1.62 (1.18-3.74) K/mm3 [place] # (Auto) 0.72 H (0.24-0.36) K/mm3 Eos # (Auto) 0.08 (0.04-0.36) K/mm3 Baso # (Auto) 0.04 (0.01-0.08) K/mm3 D-Dimer, Quantitative 1.14 H (0.19-0.50) mg/L Sodium 136 (136-145) mEq/L Potassium 3.0 L (3.5-5.1) mEq/L Chloride 96 L (98-107) mEq/L Carbon Dioxide 26 (21-32) mEq/L Anion Gap 17.0 H (5-15) BUN 63 H D (7-18) mg/dL Creatinine 1.7 H (0.55-1.02) mg/dL Est Cr Clr Drug Dosing TNP Estimated GFR (MDRD) 29 (>60) mL/min BUN/Creatinine Ratio 37.1 H (14-18) Glucose 116 H (70-99) mg/dL Calcium 9.2 (8.5-10.1) mg/dL Magnesium 2.2 (1.8-2.4) mg/dL Total Bilirubin 0.7 (0.2-1.0) mg/dL AST 25 (15-37) U/L ALT 22 (14-59) U/L Alkaline Phosphatase 92 (46-116) U/L Troponin I < 0.017 (0.00-0.056) ng/mL C-Reactive Protein <0.2 (<1.0) mg/dL NT-Pro-B Natriuret Pep (0-125) pg/mL Total Protein 8.0 (6.4-8.2) g/dl Albumin 4.0 (3.4-5.0) g/dl Globulin 4.0 gm/dL Albumin/Globulin Ratio 1.0 (1-2) TSH 3rd Generation 3.370 (0.358-3.74) uIU/mL Urine Color (Yellow) Urine Appearance (Clear) Urine pH (5.0-8.0) Ur Specific [place] (1.005-1.030) Urine Protein (Negative) Urine Glucose (UA) (Negative) Urine Ketones (Negative) Urine Occult Blood (Negative) Urine Nitrite (Negative) Urine Bilirubin (Negative) Urine Urobilinogen (0.2-1.0) Ur Leukocyte Esterase (Negative) Urine RBC (0-5) /hpf Urine WBC (0-5) /hpf Ur Squamous Epith Cells (0-5) /hpf Urine Bacteria (FEW) /hpf Urine Mucus (FEW) /hpf 09/21/21 09/21/21 Range/Units 12:38 13:55 WBC (3.98-10.04) K/mm3 RBC (3.98-5.22) M/mm3 Hgb (11.2-15.7) gm/dl Hct (34.1-44.9) % MCV (79.4-94.8) fl MCH (25.6-32.2) pg MCHC (32.2-35.5) g/dl RDW Std Deviation (36.4-46.3) fL Plt Count (182-369) K/mm3 MPV (9.4-12.3) fl Neut % (Auto) (34.0-71.1) % Lymph % (Auto) (19.3-51.7) % [place] % (Auto) (4.7-12.5) % Eos % (Auto) (0.7-5.8) Baso % (Auto) (0.1-1.2) % Neut # (Auto) (1.56-6.13) K/mm3 Lymph # (Auto) (1.18-3.74) K/mm3 [place] # (Auto) (0.24-0.36) K/mm3 Eos # (Auto) (0.04-0.36) K/mm3 Baso # (Auto) (0.01-0.08) K/mm3 D-Dimer, Quantitative (0.19-0.50) mg/L Sodium (136-145) mEq/L Potassium (3.5-5.1) mEq/L Chloride (98-107) mEq/L Carbon Dioxide (21-32) mEq/L Anion Gap (5-15) BUN (7-18) mg/dL Creatinine (0.55-1.02) mg/dL Est Cr Clr Drug Dosing Estimated GFR (MDRD) (>60) mL/min BUN/Creatinine Ratio (14-18) Glucose (70-99) mg/dL Calcium (8.5-10.1) mg/dL Magnesium (1.8-2.4) mg/dL Total Bilirubin (0.2-1.0) mg/dL AST (15-37) U/L ALT (14-59) U/L Alkaline Phosphatase (46-116) U/L Troponin I (0.00-0.056) ng/mL C-Reactive Protein (<1.0) mg/dL NT-Pro-B Natriuret Pep 394 H (0-125) pg/mL Total Protein (6.4-8.2) g/dl Albumin (3.4-5.0) g/dl Globulin gm/dL Albumin/Globulin Ratio (1-2) TSH 3rd Generation (0.358-3.74) uIU/mL Urine Color Yellow (Yellow) Urine Appearance Clear (Clear) Urine pH 6.0 (5.0-8.0) Ur Specific [place] 1.020 (1.005-1.030) Urine Protein Negative (Negative) Urine Glucose (UA) Negative (Negative) Urine Ketones Negative (Negative) Urine Occult Blood Trace-intact H (Negative) Urine Nitrite Negative (Negative) Urine Bilirubin Negative (Negative) Urine Urobilinogen 0.2 (0.2-1.0) Ur Leukocyte Esterase 2+ H (Negative) Urine RBC 0-5 (0-5) /hpf Urine WBC 5-10 H (0-5) /hpf Ur Squamous Epith Cells 5-10 H (0-5) /hpf Urine Bacteria Few (FEW) /hpf Urine Mucus Few (FEW) /hpf Meds: Medications Generic Name Dose Route Start Last Admin Trade Name Freq PRN Reason Stop Dose Admin Sodium Chloride 1,000 mls @ 250 mls/hr 09/21/21 13:30 09/21/21 14:09 Normal Saline IV 250 mls/hr ASDIRECTED MICHEAL Administration Sodium Chloride 10 ml 09/21/21 11:58 09/21/21 14:47 Sodium Chloride 0.9% 10 Ml Syringe FLUSH 10 ml ASDIRECTED PRN Administration Keep Vein Open Discontinued Medications Generic Name Dose Route Start Last Admin Trade Name Freq PRN Reason Stop Dose Admin Cefdinir 300 mg 09/21/21 15:02 09/21/21 19:29 Cefdinir 300 Mg Cap PO 09/21/21 15:03 300 mg ONETIME ONE Administration Cefdinir 300 mg 09/21/21 18:10 09/21/21 18:21 Cefdinir 300 Mg Cap PO 09/21/21 18:11 300 mg ONETIME ONE Administration Potassium Chloride 10 meq/ 100 mls @ 100 mls/hr 09/21/21 13:30 09/21/21 18:08 Premix IV 09/21/21 17:29 100 mls/hr Q1H MICHEAL Administration Iopamidol 100 ml 09/21/21 14:36 09/21/21 14:47 Iopamidol 612 Mg/Ml 100 Ml Bottle IVPUSH 09/21/21 14:37 100 ml ONETIME ONE Administration Potassium Chloride 40 meq 09/21/21 13:26 09/21/21 14:09 Potassium Chloride 20 Meq Tab.Er PO 09/21/21 13:27 40 meq ONETIME ONE Administration - Re-Assessments/Exams Free Text/Narrative Re-Assessment/Exam: 09/21/21 13:08 Radiologist impression portable view of the chest: Density within the left lung base shows improvement from prior exam. Minimal linear density remains which most likely represents slight scarring. Lungs otherwise clear. Prior sternotomy is noted. Scoliosis is noted within the spine. Heart size and mediastinum are within normal limits. Impression: 1. Notes as described above. 2. Nothing acute is seen on portable chest x-ray 09/21/21 14:07 Hematology is essentially unremarkable, coagulation reveals a D-dimer of 1.14, chemistry reveals a sodium of 136, potassium 3.0, chloride 96, carbon dioxide 26, anion gap 17.0, BUN 63, creatinine 1.7, glucose 116, magnesium 2.2, troponin less than 0.017, C-reactive protein less than 0.2, proBNP 394, TSH 3.370 I have ordered for the patient received potassium 40 mEq IV as well as potassium 40 mEq p.o. We will obtain a CTA of the chest to rule out PE as patient has had increased chest discomfort and shortness of breath as well as elevated D-dimer. 09/21/21 15:01 Urinalysis reveals a trace of intact occult blood, nitrate negative, 2+ leukocyte esterase, urine WBC 5-10, urine squamous epithelial cells 5-10, few bacteria, few mucus Patient will be treated with Omnicef 300 mg starting while in the emergency department. 09/21/21 15:[address] of the chest: Pulmonary arteries are well opacified. No filling defects are seen to indicate pulmonary embolism. Thoracic aorta shows atherosclerotic change without aneurysm. Prosthetic aortic valve is seen. Prior sternotomy is noted. No mediastinal adenopathy is seen. No axial adenopathy is seen. Small portion of the visualized upper abdominal structures show a partially visualized cyst within the upper right kidney measuring 4.0 cm. Exophytic finding is seen off the left kidney measuring 1.2 cm which appears to be stable from prior CT exam. Slight parenchymal density is noted within the left lung base, lungs otherwise are clear. Impression: 1. No findings of pulmonary embolism. 2. Mild parenchymal density within the left lung base possibly due to pneumonia. Please correlate. 3. Other findings believed to be incidental as noted above. 09/21/21 20:06 Patient will be discharged to home once she has completed her potassium infusions. She will need to follow-up with her electric refrigerator preparer for medication changes. Departure - Departure Time of Disposition: 20:07 Disposition: Home, Self-Care 01 Condition: Good Clinical Impression: Hypokalemia Urinary tract infection Qualifiers: Urinary tract infection type: acute cystitis Hematuria presence: with hematuria Qualified Code(s): N30.01 - Acute cystitis with hematuria - Discharge Information Prescriptions: Cefdinir [Omnicef] 300 mg PO BID #9 cap Instructions: Hypokalemia, Urinary Tract Infection, Adult Referrals: Katie Mayorga NP [Primary Care Provider] - Forms: ED Department Discharge Additional Instructions: You were seen in the emergency department today with dizziness weakness, chest pressure and shortness of breath. Lab studies were completed which showed your potassium level to be low at 3.0. You received IV potassium supplementation as well as pill supplementation. Is also found that you have a urinary tract infection so you were started on antibiotics. A prescription has been sent to [facility] in [place] for Omnicef 300 mg twice daily for the next 5 days. Be sure to complete this course of antibiotics to clear up the infection. Cardiac work-up was completed which included an EKG, chest x-ray and lab studies. These were all essentially unremarkable and there is no sign of heart attack or heart problems. Recommend follow-up with your electric refrigerator preparer within the next couple of weeks for reevaluation for the need for the metolazone. Should your condition worsen or change, do not hesitate returning to the emergency department. Sepsis Event Note (ED) - Evaluation Sepsis Screening Result: No Definite Risk - Focused Exam Vital Signs: Vital Signs Temp Pulse Resp BP Pulse Ox 09/21/21 11:46 98.5 F 68 16 126/98 H 98 - My Orders Last 24 Hours: My Active Orders 09/21/21 11:58 Sodium Chloride 0.9% [Saline Flush] 10 ml FLUSH ASDIRECTED PRN Saline Lock Insert [OM.PC] Stat 09/21/21 13:30 Sodium Chloride 0.9% [Normal Saline] 1,000 ml IV ASDIRECTED 09/21/21 13:55 CULTURE URINE [MREF] Stat - Assessment/Plan Last 24 Hours: My Active Orders 09/21/21 11:58 Sodium Chloride 0.9% [Saline Flush] 10 ml FLUSH ASDIRECTED PRN Saline Lock Insert [OM.PC] Stat 09/21/21 13:30 Sodium Chloride 0.9% [Normal Saline] 1,000 ml IV ASDIRECTED 09/21/21 13:55 CULTURE URINE [MREF] Stat
[2021-09-21] MEDS ORDERED: Potassium Chloride 20 MEQ Tab.ER PO ONE (13:26)
[2021-09-21] MEDS ORDERED: Sodium Chloride 0.9% 1,000 ML IV SCH (13:30)
[2021-09-21] MEDS: Sodium Chloride 0.9% 10 ML Syringe FLUSH PRN ×2 (14:09→14:47)
[2021-09-21] MEDS: Potassium Chloride 10 MEQ in Premix Bag 1 BAG IV SCH ×4 (14:09→18:08)
[2021-09-21] MEDS ORDERED: Iopamidol 612 MG/ML 100 ML Bottle IVPUSH ONE (14:36)
[2021-09-21] MEDS ORDERED: Cefdinir 300 MG Cap PO ONE ×2 (15:02→18:10)
--- NOTE | 2021-09-21 15:10 | CT ---
CT chest Technique: Multiple axial sections were obtained from above the lung apices inferiorly through the lung bases. Intravenous contrast was utilized. Study has been performed as a pulmonary angiogram protocol. Comparison: Prior chest CT angiogram of 05/13/21 and chest x-ray performed earlier on the same day (12:13 PM). Findings: Pulmonary arteries are well opacified. No filling defects are seen to indicate pulmonary embolism. Thoracic aorta shows atherosclerotic change without aneurysm. Prosthetic aortic valve is seen. Prior sternotomy is noted. No mediastinal adenopathy is seen. No axillary adenopathy is seen. Small portion of the visualized upper abdominal structures show a partially visualized cyst within the upper right kidney measuring 4.0 cm. Exophytic finding is seen off the left kidney measuring 1.2 cm which appears to be stable from prior CT exam. Slight parenchymal density is noted within the left lung base, lungs otherwise are clear. Impression: 1. No findings of pulmonary embolism. 2. Mild parenchymal density within the left lung base possibly due to pneumonia. Please correlate. 3. Other findings believed to be incidental as noted above. Diagnostic code #3
== END 2021-09-21 19:30 | disposition home or self-care (01) ==
LOC: JD.ED 11:03
DX: E87.6 Hypokalemia (principal); N30.01 Acute cystitis with hematuria; I44.7 Left bundle-branch block, unspecified; I48.91 Unspecified atrial fibrillation; E78.00 Pure hypercholesterolemia, unspecified; I12.9 Hypertensive chronic kidney disease with stage 1 through stage 4 chronic kidney disease, or unspecified chronic kidney disease; N18.30 Chronic kidney disease, stage 3 unspecified; K21.9 Gastro-esophageal reflux disease without esophagitis; M19.90 Unspecified osteoarthritis, unspecified site; Z88.8 Allergy status to other drugs, medicaments and biological substances; Z79.82 Long term (current) use of aspirin; Z79.02 Long term (current) use of antithrombotics/antiplatelets; Z79.899 Other long term (current) drug therapy
CPT/HCPCS: 36415; 71045; 71045-26; 71275; 71275-26; 80053; 81001; 83735; 83880; 84443; 84484; 85025; 85379; 86140; 87086; 93005; 96365; 96366; 99284-25; A9270-GY; J3480; J7030; Q9967

== ENCOUNTER 2021-10-26 10:34 | Emergency (ER) | payer MEDICARE, BC ==
[2021-10-26] MEDS ORDERED: Oxymetazoline 0.05% Nasal Spray 30 ML Bottle NAS ONE (11:09)
[2021-10-26] MEDS ORDERED: Ondansetron 4 MG Tab.DIS PO ONE (11:09)
--- NOTE | 2021-10-26 11:44 | EDM.PDOC ---
ED HPI GENERAL MEDICAL PROBLEM - General Chief Complaint: ENT Problem Stated Complaint: NOSE BLEED Time Seen by Provider: 10/26/21 10:45 Source of Information: Reports: Patient History Limitations: Reports: No Limitations - History of Present Illness INITIAL COMMENTS - FREE TEXT/NARRATIVE: Patient is a 76-year-old male presenting to the emergency room with epistaxis. Duration of symptoms is 1 hour. Patient reports several episodes in the past week. These episodes been spontaneous. She is on aspirin and Plavix. No history of trauma. No pain. Bleeding seems to be improved after direct pressure. Patient has not performed any other intervention besides lying back and applying pressure. - Related Data Allergies Allergy/AdvReac Type Severity Reaction Status Date / Time lorazepam [From Ativan] Allergy Severe Hallucinati Verified 10/26/21 10:50 ons Home Meds: Home Meds Alendronate [Fosamax] 70 mg PO WEEKLY 09/21/21 [History] Amoxicillin 2,000 mg PO ONETIME PRN 09/21/21 [History] Aspirin [Aspirin EC] 81 mg PO DAILY 09/21/21 [History] Cefdinir [Omnicef] 300 mg PO BID #9 cap 09/21/21 [Rx] Clopidogrel [Plavix] 75 mg PO DAILY 09/21/21 [History] DULoxetine [Cymbalta] 60 mg PO DAILY 09/21/21 [History] Famotidine 20 mg PO BID 09/21/21 [History] Fluticasone Propionate [Flonase] 2 spray NASBOTH DAILY 09/21/21 [History] Furosemide [Lasix] 40 mg PO BID 09/21/21 [History] Metoprolol Succinate 100 mg PO DAILY 09/21/21 [History] Potassium Chloride 40 meq PO DAILY 09/21/21 [History] Simvastatin [Zocor] 20 mg PO BEDTIME 09/21/21 [History] amLODIPine [Norvasc] 5 mg PO DAILY 09/21/21 [History] hydrOXYzine HCL [Atarax] 50 mg PO DAILY PRN 09/21/21 [History] metOLazone [Metolazone] 5 mg PO DAILY 09/21/21 [History] Past Medical History HEENT History: Reports: Allergic Rhinitis, Cataract, Impaired Vision, Retinal Detachment Cardiovascular History: Reports: Afib, High Cholesterol, Hypertension Respiratory History: Reports: Sleep Apnea, Other (See Below) Other Respiratory History: seasonal allergies Gastrointestinal History: Reports: GERD, Other (See Below) Other Gastrointestinal History: elevated LFTs Genitourinary History: Reports: Renal Disease Other Genitourinary History: chronic kidney disease stage 3, bacteruria [employer]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 Endocrine/Metabolic History: Reports: Osteoporosis Other Hematologic History: hypokalemia Immunologic History: Reports: None Oncologic (Cancer) History: Reports: None Dermatologic History: Reports: None - Infectious Disease History Infectious Disease History: Reports: Chicken Pox, Measles - Past Surgical History Head Surgeries/Procedures: Reports: None HEENT Surgical History: Reports: Cataract Surgery, Retinal Cardiovascular Surgical History: Reports: None, Valve Replacement Other Cardiovascular Surgeries/Procedures: april 2021 - valve replacement Respiratory Surgical History: Reports: Thoracentesis GI Surgical History: Reports: Appendectomy, Cholecystectomy Female Surgical History: Reports: Breast Reduction, Hysterectomy, Tubal Ligation Other Female Surgeries/Procedures: Pt. reports lumpectomy and breast reduction. Endocrine Surgical History: Reports: None Neurological Surgical History: Reports: None Musculoskeletal Surgical History: Reports: Carpal Tunnel, Knee Replacement, Shoulder Replacement Oncologic Surgical History: Reports: Lumpectomy Dermatological Surgical History: Reports: None Social & Family History - Family History Family Medical History: No Pertinent Family History - Tobacco Use Tobacco Use Status *Q: Never Tobacco User - Caffeine Use Caffeine Use: Reports: None Other Caffeine Use: Pt. reports drinking decaffeniated tea. - Recreational Drug Use Recreational Drug Use: No - Living Situation & Occupation Living situation: Reports: , with Spouse Occupation: Retired ED ROS ENT - Review of Systems Review Of Systems: Comprehensive ROS is negative, except as noted in HPI. ED EXAM, ENT - Physical Exam Exam: See Below Text/Narrative:: I have reviewed the triage vital signs Const: Well nourished, well developed, appears stated age Eyes: Pupils Equal and reactive to light bilaterally, no conjunctival injection HENT: Blood noted in the anterior right nares. No active bleeding. Oropharynx is normal. No bleeding in the back of the throat. No signs of trauma or swelling, Neck supple without meningismus CV: Regular Rate Rhythm, Warm, well-perfused extremities RESP: Unlabored respiratory effort Skin: Warm, dry. 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 Sensation and motor function of extremities grossly intact. Psych: Appropriate mood and affect. Course - Vital Signs Last Recorded V/S: Last Vital Signs Temp 35.8 C L 10/26/21 10:46 Pulse 85 10/26/21 10:46 Resp 18 10/26/21 10:46 BP 138/99 H 10/26/21 10:46 Pulse Ox 100 10/26/21 10:46 - Orders/Labs/Meds Meds: Medications Discontinued Medications Generic Name Dose Route Start Last Admin Trade Name Anthonyq PRN Reason Stop Dose Admin Ondansetron HCl 4 mg 10/26/21 11:09 10/26/21 11:14 Ondansetron 4 Mg Tab.Dis PO 10/26/21 11:10 4 mg ONETIME ONE Administration Oxymetazoline HCl 0.5 ml 10/26/21 11:09 10/26/21 11:14 Oxymetazoline 0.05% Nasal Cadet 30 Ml Bottle MARTITA 10/26/21 11:10 1 spray ONETIME ONE Administration Departure - Departure Time of Disposition: 11:43 Disposition: Home, Self-Care 01 Clinical Impression: Anterior epistaxis - Discharge Information Instructions: Nosebleed, Adult Referrals: Katie Mayorga, [employer]IST [Primary Care Provider] - Forms: ED Department Discharge Additional Instructions: I recommend the use of Afrin twice daily for the next 3 days. If your nosebleed returns, apply pressure and lean forward over a trash can. Please avoid blowing your nose for the next 48 hours. I do recommend frequent use of petroleum jelly to help with the dry air. Also, at home please use a humidifier if possible to help reduce the dryness in the air. Sepsis Event Note (ED) - Evaluation Sepsis Screening Result: No Definite Risk - Focused Exam Vital Signs: Vital Signs Temp Pulse Resp BP Pulse Ox 10/26/21 10:46 35.8 C L 85 18 138/99 H 100 - Assessment/Plan Assessment:: Patient is a 76-year-old female presenting to the emergency room with epistaxis. Appears to be anterior epistaxis based on presentation. Given Afrin in the emergency room. No active bleeding during my evaluation. Responded well. Discharged with outpatient follow-up and return precautions.
== END 2021-10-26 11:55 | disposition home or self-care (01) ==
LOC: JD.ED 10:34
DX: R04.0 Epistaxis (principal); I48.91 Unspecified atrial fibrillation; E78.00 Pure hypercholesterolemia, unspecified; I12.9 Hypertensive chronic kidney disease with stage 1 through stage 4 chronic kidney disease, or unspecified chronic kidney disease; N18.30 Chronic kidney disease, stage 3 unspecified; K21.9 Gastro-esophageal reflux disease without esophagitis; Z88.5 Allergy status to narcotic agent; Z79.82 Long term (current) use of aspirin; Z79.02 Long term (current) use of antithrombotics/antiplatelets; Z79.899 Other long term (current) drug therapy
CPT/HCPCS: 99283; A9270

== ENCOUNTER 2021-11-30 12:58 | Emergency (ER) | payer MEDICARE, BC ==
[2021-11-30] MEDS ORDERED: Sodium Chloride 0.9% 10 ML Syringe FLUSH PRN (13:24)
[2021-11-30] MEDS ORDERED: Potassium Chloride 20 MEQ Tab.ER PO ONE (14:08)
[2021-11-30] MEDS: Potassium Chloride 10 MEQ in Premix Bag 1 BAG IV SCH ×2 (14:15→15:36)
[2021-11-30] MEDS ORDERED: Sodium Chloride 0.9% 1,000 ML IV STA (14:24)
== END 2021-11-30 16:50 | disposition home or self-care (01) ==
LOC: JD.ED 12:58
DX: E87.6 Hypokalemia (principal); I12.9 Hypertensive chronic kidney disease with stage 1 through stage 4 chronic kidney disease, or unspecified chronic kidney disease; N18.30 Chronic kidney disease, stage 3 unspecified; K21.9 Gastro-esophageal reflux disease without esophagitis; Z88.5 Allergy status to narcotic agent; Z79.82 Long term (current) use of aspirin; Z79.02 Long term (current) use of antithrombotics/antiplatelets; Z79.899 Other long term (current) drug therapy
CPT/HCPCS: 36415; 80053; 81001; 83735; 85025; 96365; 96366; 99284; A9270; J3480; J7030

== ENCOUNTER 2021-12-12 09:40 | Emergency (ER) | payer MEDICARE, BC ==
[2021-12-12] MEDS ORDERED: Sodium Chloride 0.9% 10 ML Syringe FLUSH PRN (10:13)
== END 2021-12-12 14:45 | disposition home or self-care (01) ==
LOC: JD.ED 09:40
DX: N28.1 Cyst of kidney, acquired (principal); I13.0 Hypertensive heart and chronic kidney disease with heart failure and stage 1 through stage 4 chronic kidney disease, or unspecified chronic kidney disease; N18.30 Chronic kidney disease, stage 3 unspecified; I50.9 Heart failure, unspecified; R14.0 Abdominal distension (gaseous); E78.00 Pure hypercholesterolemia, unspecified; Z88.5 Allergy status to narcotic agent; Z79.82 Long term (current) use of aspirin; Z79.02 Long term (current) use of antithrombotics/antiplatelets; Z79.899 Other long term (current) drug therapy
CPT/HCPCS: 36415; 71046; 71046-26; 74176; 74176-26; 76775; 76775-26; 80053; 81001; 83880; 84484; 85025; 93005; 99285-25

== ENCOUNTER 2021-12-19 10:31 | Emergency (ER) | payer MEDICARE, BC ==
[2021-12-19] MEDS ORDERED: Sodium Chloride 0.9% 10 ML Syringe FLUSH PRN (11:03)
[2021-12-19] MEDS ORDERED: Potassium Chloride 20 MEQ Tab.ER PO ONE (12:28)
[2021-12-19] MEDS ORDERED: Sodium Chloride 0.9% 1,000 ML IV SCH (12:45)
[2021-12-19] MEDS: Potassium Chloride 10 MEQ in Premix Bag 1 BAG IV SCH ×2 (12:51→13:53)
[2021-12-19] MEDS ORDERED: Ondansetron 4 MG/2 ML SDV IVPUSH ONE (13:46)
[2021-12-19] MEDS ORDERED: Sodium Chloride 0.9% 250 ML IV ONE (15:07)
[2021-12-19] MEDS ORDERED: Sodium Chloride 0.9% 500 ML IV ONE (15:13)
== END 2021-12-19 17:05 | disposition home or self-care (01) ==
LOC: JD.ED 10:31
DX: E86.0 Dehydration (principal); E87.6 Hypokalemia; I48.91 Unspecified atrial fibrillation; E78.00 Pure hypercholesterolemia, unspecified; I12.9 Hypertensive chronic kidney disease with stage 1 through stage 4 chronic kidney disease, or unspecified chronic kidney disease; N18.30 Chronic kidney disease, stage 3 unspecified; K21.9 Gastro-esophageal reflux disease without esophagitis; Z88.5 Allergy status to narcotic agent; Z79.82 Long term (current) use of aspirin; Z79.02 Long term (current) use of antithrombotics/antiplatelets; Z79.899 Other long term (current) drug therapy
CPT/HCPCS: 36415; 80053; 83735; 85025; 96365; 96375; 96376; 99284-25; A9270-GY; J2405; J3480; J7030

== ENCOUNTER 2022-09-16 09:20 | Emergency (ER) | payer MEDICARE, BC ==
[2022-09-16] MEDS ORDERED: Sodium Chloride 0.9% 10 ML Syringe FLUSH PRN (10:30)
[2022-09-16] MEDS ORDERED: Diltiazem 25 MG/5 ML SDV IVPUSH ONE (10:31)
[2022-09-16] MEDS ORDERED: Furosemide 40 MG/4 ML VIAL IVPUSH ONE (10:32)
[2022-09-16 11:19] LABS: ESTIMATED GFR 36 mL/min (>60)
[2022-09-16] MEDS ORDERED: Digoxin 500 MCG/2 ML Amp IVPUSH ONE ×2 (13:56→14:00)
== END 2022-09-16 14:38 | disposition home or self-care (01) ==
LOC: JD.ED 09:20
DX: I48.91 Unspecified atrial fibrillation (principal); E78.00 Pure hypercholesterolemia, unspecified; I12.9 Hypertensive chronic kidney disease with stage 1 through stage 4 chronic kidney disease, or unspecified chronic kidney disease; N18.30 Chronic kidney disease, stage 3 unspecified; K21.9 Gastro-esophageal reflux disease without esophagitis; M19.90 Unspecified osteoarthritis, unspecified site; Z88.8 Allergy status to other drugs, medicaments and biological substances; Z79.82 Long term (current) use of aspirin; Z79.02 Long term (current) use of antithrombotics/antiplatelets; Z79.899 Other long term (current) drug therapy
CPT/HCPCS: 36415; 71045; 80053; 82553; 83735; 83880; 84484; 85025; 85610; 85730; 86140; 96374; 96375; 99285; J1160; J1940; J3490

== ENCOUNTER 2023-01-22 13:10 | Emergency (ER) | payer MEDICARE, BC ==
[2023-01-22 14:30] LABS: CORONAVIRUS COVID-19 NAA NEGATIVE (NEGATIVE)
== END 2023-01-22 16:07 | disposition home or self-care (01) ==
LOC: JD.ED 13:10
DX: I48.91 Unspecified atrial fibrillation (principal); I13.2 Hypertensive heart and chronic kidney disease with heart failure and with stage 5 chronic kidney disease, or end stage renal disease; N18.30 Chronic kidney disease, stage 3 unspecified; I50.9 Heart failure, unspecified; E78.00 Pure hypercholesterolemia, unspecified; K21.9 Gastro-esophageal reflux disease without esophagitis; Z88.8 Allergy status to other drugs, medicaments and biological substances; Z79.82 Long term (current) use of aspirin; Z79.02 Long term (current) use of antithrombotics/antiplatelets; Z79.899 Other long term (current) drug therapy; Z20.822 Contact with and (suspected) exposure to COVID-19
CPT/HCPCS: 0241U; 36415; 71045; 80053; 81001; 83880; 84484; 85025; 85379; 85610; 85730; 93005; 99285; 93010; 99284

== ENCOUNTER 2024-02-17 06:35 | Emergency (ER) | payer MEDICARE, BC ==
[2024-02-17 07:50] LABS: BASOPHILS ABSOLUTE AUTO 0.2 K/mm3 (0.0-0.2); BASOPHILS PERCENT AUTO 0.9 % (0.0-1.0); EOSINOPHILS PERCENT AUTO 0.1 % (0.0-6.0); HEMATOCRIT 35.5 % (37.0-47.0); HEMOGLOBIN 11.7 gm/dl (12.0-16.0); IMMATURE GRAN ABSOLUTE AUTO 1.33 K/mm3 (0.00-0.05); IMMATURE GRAN PERCENT AUTO 7.4 % (0.0-0.4); LYMPHOCYTES ABSOLUTE AUTO 1.1 K/mm3 (1.0-4.8); LYMPHOCYTES PERCENT AUTO 6.3 % (24.0-44.0); MEAN CORPUSCULAR HEMOGLOBIN 30.2 pg (28.0-32.0); MEAN CORPUSCULAR VOLUME 91.7 fl (83.0-99.0); MEAN PLATELET VOLUME 9.5 fl (9.4-12.3); MONOCYTES PERCENT AUTO 5.6 % (0.0-8.0); NEUTROPHILS ABSOLUTE AUTO 14.3 K/mm3 (1.8-7.7); NEUTROPHILS PERCENT AUTO 79.7 % (41.0-71.0); PLATELET COUNT,PLT 130 K/mm3 (150-400); RED BLOOD CELL COUNT 3.87 M/mm3 (4.10-5.30); WHITE BLOOD CELL COUNT,WBC 17.97 K/mm3 (3.9-11.3)
[2024-02-17 08:09] LABS: ANION GAP 14.4 (5-15); BILIRUBIN TOTAL 0.4 mg/dL (0.2-1.0); BUN/CREATININE RATIO 18.6 (14-18); CREATININE 1.4 mg/dL (0.55-1.02); EST CRCL DRUG DOSING (CG) 27.04 mL/min; MAGNESIUM 1.3 mg/dL (1.8-2.4); POTASSIUM,K 3.4 mEq/L (3.5-5.1); PROTEIN TOTAL,TP 6.1 g/dl (6.4-8.2)
[2024-02-17 08:27] LABS: SLIDE REVIEW ABNORMAL SMEAR
[2024-02-17 09:54] LABS: APPEARANCE,URINE CLEAR (Clear); BILIRUBIN,URINE NEGATIVE (Negative); COLOR,URINE YELLOW (Yellow); GLUCOSE,URINE NEGATIVE (Negative); KETONES,URINE NEGATIVE (Negative); LEUKOCYTE ESTERASE,URINE NEGATIVE (Negative); NITRITE,URINE NEGATIVE (Negative); OCCULT BLOOD,URINE TRACE-LYSED (Negative); PROTEIN,URINE TRACE (Negative); UROBILINOGEN,URINE 0.2 (0.2-1.0)
[2024-02-17] MEDS: Sodium Chloride 0.9% 1,000 ML IV ONE (09:54)
[2024-02-17] MEDS: Magnesium Sulfate/Water 2 GM in Premix Bag 1 BAG IV ONE (09:55)
[2024-02-17] MEDS: Sodium Chloride 0.9% 10 ML Syringe FLUSH PRN (09:57)
[2024-02-17 10:02] LABS: BACTERIA,URINE RARE /hpf (FEW); EPITHELIAL CELLS,URINE NOT SEEN /hpf (0-5); MUCUS,URINE NOT SEEN /hpf (FEW); RBC,URINE 0-5 /hpf (0-5); WBC,URINE NOT SEEN /hpf (0-5)
[2024-02-17 10:27] LABS: CORONAVIRUS COVID-19 NAA NEGATIVE (NEGATIVE); INFLUENZA A NAA NEGATIVE (NEGATIVE); RESPIRATORY SYNCYTIAL VIR NAA NEGATIVE (NEGATIVE)
== END 2024-02-17 12:02 | disposition home or self-care (01) ==
LOC: JD.ED 06:35
DX: A08.4 Viral intestinal infection, unspecified (principal); N18.30 Chronic kidney disease, stage 3 unspecified; K21.9 Gastro-esophageal reflux disease without esophagitis; Z90.49 Acquired absence of other specified parts of digestive tract; Z88.8 Allergy status to other drugs, medicaments and biological substances; Z79.899 Other long term (current) drug therapy; Z79.82 Long term (current) use of aspirin; Z79.01 Long term (current) use of anticoagulants; Z86.19 Personal history of other infectious and parasitic diseases
CPT/HCPCS: 0241U; 36415; 71046; 80053; 81001; 83735; 85025; 96361; 96374; 99284; J3475; J3490; J7030

== ENCOUNTER 2024-05-07 11:52 | Emergency (ER) | payer MEDICARE, BC | END 2024-05-07 12:30 | disposition home or self-care (01) | LOC: JD.ED 11:52 | DX: S70.11XA Contusion of right thigh, initial encounter (principal); Z90.49 Acquired absence of other specified parts of digestive tract; Z90.710 Acquired absence of both cervix and uterus; Z79.899 Other long term (current) drug therapy; Z79.01 Long term (current) use of anticoagulants; Z88.8 Allergy status to other drugs, medicaments and biological substances; X58.XXXA Exposure to other specified factors, initial encounter | CPT/HCPCS: 99283 ==

== ENCOUNTER 2024-05-09 13:17 | Emergency (ER) | payer MEDICARE, BC ==
[2024-05-09 14:11] LABS: BASOPHILS PERCENT AUTO 0.2 % (0.0-1.0); EOSINOPHILS PERCENT AUTO 0.1 % (0.0-6.0); HEMOGLOBIN 7.6 gm/dl (12.0-16.0); IMMATURE GRAN ABSOLUTE AUTO 0.89 K/mm3 (0.00-0.05); IMMATURE GRAN PERCENT AUTO 6.3 % (0.0-0.4); LYMPHOCYTES ABSOLUTE AUTO 2.4 K/mm3 (1.0-4.8); LYMPHOCYTES PERCENT AUTO 17.1 % (24.0-44.0); MEAN CORPUSCULAR HEMOGLOBIN 33.6 pg (28.0-32.0); MEAN CORPUSCULAR HGB CONC 31.7 g/dl (32.0-36.0); MEAN CORPUSCULAR VOLUME 106.2 fl (83.0-99.0); MEAN PLATELET VOLUME 10.2 fl (9.4-12.3); MONOCYTES ABSOLUTE AUTO 1.5 K/mm3 (0.0-0.8); MONOCYTES PERCENT AUTO 10.5 % (0.0-8.0); NEUTROPHILS ABSOLUTE AUTO 9.4 K/mm3 (1.8-7.7); NEUTROPHILS PERCENT AUTO 65.8 % (41.0-71.0); NRBC ABSOLUTE 0.09 (0.00-0.02); NRBC PERCENT 0.6 % (0.0-0.2); PLATELET COUNT,PLT 129 K/mm3 (150-400); RED BLOOD CELL COUNT 2.26 M/mm3 (4.10-5.30); WHITE BLOOD CELL COUNT,WBC 14.22 K/mm3 (3.9-11.3)
[2024-05-09] MEDS: Ondansetron 4 MG/2 ML SDV IVPUSH ONE (14:53)
[2024-05-09] MEDS: Sodium Chloride 0.9% 1,000 ML IV ONE (14:53)
[2024-05-09] MEDS: Pantoprazole 40 MG Vial IVPUSH ONE (14:54)
[2024-05-09 14:59] LABS: A/G RATIO 1.2 (1-2); ALBUMIN 3.2 g/dl (3.4-5.0); ANION GAP 11.5 (5-15); BILIRUBIN TOTAL 0.7 mg/dL (0.2-1.0); BUN/CREATININE RATIO 12.5 (14-18); CALCIUM 8.4 mg/dL (8.5-10.1); CREATININE 1.2 mg/dL (0.55-1.02); EST CRCL DRUG DOSING (CG) 31.54 mL/min; MAGNESIUM 1.4 mg/dL (1.8-2.4); POTASSIUM,K 3.5 mEq/L (3.5-5.1); PROTEIN TOTAL,TP 5.9 g/dl (6.4-8.2)
[2024-05-09 15:04] LABS: APPEARANCE,URINE CLEAR (Clear); BILIRUBIN,URINE NEGATIVE (Negative); COLOR,URINE YELLOW (Yellow); GLUCOSE,URINE NEGATIVE (Negative); KETONES,URINE NEGATIVE (Negative); LEUKOCYTE ESTERASE,URINE NEGATIVE (Negative); NITRITE,URINE NEGATIVE (Negative); OCCULT BLOOD,URINE TRACE-INTACT (Negative); PH,URINE 7.5 (5.0-8.0); PROTEIN,URINE NEGATIVE (Negative); UROBILINOGEN,URINE 0.2 (0.2-1.0)
[2024-05-09 15:42] LABS: SLIDE REVIEW ABNORMAL SMEAR
[2024-05-09 16:14] LABS: RBC,URINE 0-5 /hpf (0-5); WBC,URINE 0-5 /hpf (0-5)
[2024-05-09 16:15] LABS: BACTERIA,URINE FEW /hpf (FEW); MUCUS,URINE FEW /hpf (FEW); SQUAMOUS EPITHELIAL CELLS,UR 0-5 /hpf (0-5)
== END 2024-05-09 19:12 | disposition home or self-care (01) ==
LOC: JD.ED 13:17
DX: K52.9 Noninfective gastroenteritis and colitis, unspecified (principal); N18.32 Chronic kidney disease, stage 3b; D63.1 Anemia in chronic kidney disease; Z79.899 Other long term (current) drug therapy; Z88.8 Allergy status to other drugs, medicaments and biological substances; Z79.01 Long term (current) use of anticoagulants; Z90.49 Acquired absence of other specified parts of digestive tract; Z90.710 Acquired absence of both cervix and uterus
CPT/HCPCS: 36415; 80053; 81001; 83690; 83735; 83880; 84100; 85025; 96361; 96374; 96375; 99284; C9113; J2405; J7030

== ENCOUNTER 2024-10-24 11:09 | Day surgery (SDC) | payer MEDICARE, BC ==
[~2024-10-24 11:09] MED LIST changes: -Lactated Ringers 1,000 ML IV SCH; -Lidocaine 1%/Sod Bicarbonate in NS 8.4% 1 ML Syringe IDERM PRN; +Sodium Chloride 0.9% 10 ML Syringe FLUSH SCH
[2024-10-24] MEDS ORDERED: Midazolam 1 MG/ML 2 ML SDV ONE (11:36)
[2024-10-24] MEDS ORDERED: Propofol 200 MG/20 ML SDV ONE ×2 (11:36→12:09)
[2024-10-24] MEDS ORDERED: Lidocaine 2% 5 ML SDV ONE (11:37)
[2024-10-24] MEDS: Lactated Ringers 1,000 ML IV SCH (11:45)
== END 2024-10-24 13:40 | disposition home or self-care (01) ==
LOC: JD.SDS 11:09
PROVIDERS: ATTEND Surgery
DX: Z12.11 Encounter for screening for malignant neoplasm of colon (principal); D12.3 Benign neoplasm of transverse colon; Z86.0100 Personal history of colon polyps, unspecified; J44.9 Chronic obstructive pulmonary disease, unspecified; I13.0 Hypertensive heart and chronic kidney disease with heart failure and stage 1 through stage 4 chronic kidney disease, or unspecified chronic kidney disease; I50.9 Heart failure, unspecified; I48.91 Unspecified atrial fibrillation; N18.30 Chronic kidney disease, stage 3 unspecified; Z79.899 Other long term (current) drug therapy
CPT/HCPCS: 45380; J2250; J2704; J7120; J3490